=== PATIENT | female | born 1990 | race Caucasian/White ===

== ENCOUNTER → 2018-05-16 07:55 | Outpatient (CLI) | payer BC, SELFPAY ==
[2018-05-17 11:46] LABS: Progesterone 0.3 ng/mL (.)
== END ==
PROVIDERS: Visit Provider Obstetrics & Gynecology
DX: E28.2 Polycystic ovarian syndrome (principal)
CPT/HCPCS: 36415; 84144

== ENCOUNTER → 2018-06-29 18:14 | Outpatient (CLI) | payer BC, SELFPAY | PROVIDERS: Visit Provider Physician Assistant | DX: J02.9 Acute pharyngitis, unspecified (principal) ==

== ENCOUNTER → 2019-05-11 13:45 | Outpatient (CLI) | payer BC, SELFPAY | PROVIDERS: Visit Provider Nurse Practitioner Family | DX: R10.9 Unspecified abdominal pain (principal) | CPT/HCPCS: 87086 ==

== ENCOUNTER → 2019-05-17 17:46 | Outpatient (CLI) | payer BC, SELFPAY ==
[2019-05-17 18:17] VITALS: BP 121/71; PULSE 73; RESP 18; TEMP 36.8; O2SAT 98
[2019-05-17 18:19] VITALS: BP 123/74; PULSE 77; RESP 18; TEMP 37.1; O2SAT 98
[2019-05-18 16:48] VITALS: BMI 30.6
[2019-05-18 16:56] LABS: Microscopic, Urine URINE MICROSCOPIC (MICROSCOPIC)
[2019-05-18 17:00] LABS: Bilirubin,Urine Negative (Negative); Blood, Urine Negative (Negative); Color,Urine YELLOW (Yellow); Glucose,Urine (UA) Negative (Negative); Ketones,Urine Negative (Negative); Leukocyte Esterase,Urine Negative (Negative); Nitrate,Urine Negative (Negative); Protein,Urine Negative (Negative); Specific Gravity, Urine >= 1.030 (1.005-1.030); Urobilinogen,Urine 0.2 EU/dl (0.2)
[2019-05-18 17:08] LABS: Appearance,Urine Turbid (Clear)
[2019-05-18 17:10] LABS: Amorphous Sediment,Urine 4+ /lpf; Squamous Epithelial Cell,Urine Occasional #/hpf (0-5); WBC,Urine Occasional #/hpf (0-3)
== END ==
PROVIDERS: PCP Physician Assistant; Visit Provider Nurse Practitioner Family
DX: R30.0 Dysuria (principal)
CPT/HCPCS: 81001; 87086; G0463

== ENCOUNTER 2019-11-19 16:45 | Emergency (ER) | payer BC, SELFPAY ==
[2019-11-19 16:46] VITALS: BP 120/80; PULSE 100; RESP 20; TEMP 36.8; O2SAT 100; BMI 29.9
--- NOTE | 2019-11-19 17:01 | HMH.EDUTC ---
[facility] [place] Disposition Clinical Impression: Cellulitis Qualifiers: Site of cellulitis: extremity Site of cellulitis of extremity: lower extremity Laterality: left Qualified Code(s): L03.116 - Cellulitis of left lower limb Disposition: Home, Self-Care Condition on Discharge: Good Instructions: Cellulitis Additional Instructions: *Start antibiotic(s) immediately and be sure to take as ordered for the FULL length of time although you may be feeling better or start to see improvement in the next 24-48 hours *Monitor closely. Outlined redness so that you can monitor easier. Follow up immediately for new or worsening symptoms including but not limited to redness, swelling, streaking from site fever or chills. *Warm compress 15 minutes 3-4 times day *Never squeeze or pop these on your own. Seek immediate medical attention next time this occurs *Monitor Temp. Tylenol every 4 hours as needed and ibuprofen every 6 hours as needed (as long as your primary care doctor has told you that it is ok to take both. For fever, aches, pain. ER if no less that 101 despite Tylenol and ibuprofen Follow up with your family doctor/primary care physician in the next 48-72 hours if no improvement Prescriptions: cephALEXin [Keflex 500mg Cap] 500 mg PO Q6H 5 Days #20 cap Transmission Status: Sent to [facility] Referrals: Carina Benson PA [Primary Care Provider] - As needed Time of Disposition: 17:19 Medical Decision Making - Darius Inquiry Pt receiving controlled substance: No Darius was queried for this patient: No Vital Signs: 11/19/19 16:46 Temperature 98.3 F Temperature Source Oral Pulse Rate [Right] 100 H Respiratory Rate 20 Blood Pressure [Right Arm] 120/80 Blood Pressure Mean [Right Arm] 93 02 Sat by Pulse Oximetry 100 - Reevaluation(s) Time: 17:13 Reevaluation #1: Patient states that she is allergic to PCN and Amoxicillin but has taken Cephasporins in the past with no reaction or complications Medication discussed with pharmacy [facility] [place] HPI - General Stated complaint: L arm, possible infected Time Seen by Provider: 11/19/19 17:01 Mode of Arrival: Ambulatory Limitations: No Limitations Description of Symptoms (Recalled from Triage Doc. by RN): Sore to left upper arm since last night. HEENT Symptoms (Recalled from RN notes): No Resp Symptoms (Recalled from RN notes): No Skin Symptoms (Recalled from RN notes): Yes MS Symptoms (Recalled from RN notes): No Functional Status (Recalled from RN notes): na - History of Present Illness Provider Complaint: Patient states that she had a bump on her left forearm area last night and she thought it may be an infected hair so she picked at it and today she noticed it looked red around it like it was getting infected States that she hasnt had any drainage from it but noticed the redness was looking worse so she came in - Related Data Previous Rx's Medication Instructions Recorded Azithromycin [Z-Reginaldo 250mg Tab*] 250 mg PO UD DOSE PK #6 tab 08/15/19 Brompheniramine/Pseudoephed/Dm 5 ml PO Q6HP PRN #240 syrup 08/15/19 [Bromfed Dm Cough Syrup] Ondansetron [Zofran 4mg ODT] 4 mg PO Q8HP PRN #10 tab.rapdis 08/15/19 predniSONE [Prednisone 20mg 20 mg PO BID 4 Days #8 tab 08/15/19 Tab] cephALEXin [Keflex 500mg Cap] 500 mg PO Q6H 5 Days #20 cap 11/19/19 Allergies Allergy/AdvReac Type Severity Reaction Status Date / Time amoxicillin [AMOXICILLIN] Allergy Unknown I-RASH Verified 06/05/19 14:54 aspirin [ASPIRIN] Allergy Unknown NA-NAUSEA/V Verified 06/05/19 14:54 OMITING hydromorphone [From DILAUDID] Allergy Unknown S-SWELLS-OR Verified 06/05/19 14:54 AL/THROAT ibuprofen [IBUPROFEN] Allergy Unknown NA-NAUSEA/V Verified 06/05/19 14:54 OMITING Penicillins [PENICILLINS] Allergy Unknown I-RASH Verified 06/05/19 14:54 tetanus and diphtheria Allergy Unknown LOCAL Verified 06/05/19 14:54 toxoids REACTION Tetanus Vaccines and Toxoid Allergy Unknown
[2019-11-19 17:24] VITALS: BP 120/87; PULSE 85; RESP 20; TEMP 36.8; O2SAT 98
== END 2019-11-19 17:27 | disposition home or self-care (01) ==
PROVIDERS: Emergency Provider Nurse Practitioner; PCP Physician Assistant
DX: L03.116 Cellulitis of left lower limb (principal); Z88.0 Allergy status to penicillin; Z88.7 Allergy status to serum and vaccine; E03.9 Hypothyroidism, unspecified; K21.9 Gastro-esophageal reflux disease without esophagitis; Z90.49 Acquired absence of other specified parts of digestive tract
CPT/HCPCS: 99201

== ENCOUNTER → 2019-12-11 14:42 | Outpatient (CLI) | payer BC, SELFPAY ==
[2019-12-11 15:31] LABS: Basophils % 0.2 % (0.1-2.0); Eosinophils # 0.1 K/mm3 (0.0-0.4); Eosinophils % 2.5 % (0.1-12.0); Hematocrit 43.6 % (37.0-47.0); Hemoglobin 14.8 g/dL (12.2-16.2); Lymphocytes # 1.6 K/mm3 (0.7-4.5); Mean Corpuscular Hemoglobin 30.1 pg (27.0-31.2); Mean Corpuscular Volume 88.7 fl (81-99); Mean Platelet Volume 10.6 fl (7.4-10.4); Monocytes # 0.3 K/mm3 (0.1-1.0); Monocytes % 5.1 % (1.7-9.3); Neutrophils # 3.3 K/mm3 (1.8-7.8); Neutrophils % 62.2 % (37.0-80.0); Platelet Count 207 K/mm3 (142-424); Red Blood Count 4.92 M/mm3 (4.20-5.40); Red Cell Distribution Width 13.2 % (11.5-17.5); White Blood Count 5.4 K/mm3 (4.8-10.8)
[2019-12-11 15:49] LABS: Chloride 107 mmol/L (98-107); Sodium 139 mmol/L (136-145)
[2019-12-11 15:50] LABS: Potassium 4.6 mmoL/L (3.5-5.1)
[2019-12-11 15:52] LABS: Alanine Aminotransferase 15 U/L (12-78); Albumin Level 4.6 g/dl (3.5-5.0); Albumin/Globulin Ratio 1.4 (1.1-1.8); Alkaline Phosphatase 99 U/L (38-126); Anion Gap 11.6 mEq/L (5-15); Aspartate Amino Transferase 21 U/L (14-36); Bilirubin,Total 0.6 mg/dl (0.2-1.3); Blood Urea Nitrogen 7 mg/dl (7-17); Carbon Dioxide 25 mmol/L (22.0-30.0); Cholesterol 189 mg/dl (140-200); Estimated Glomerular Filt Rate 98 ml/min (>60); GFR (African American) 118 ML/MIN (>60); Globulin 3.4 g/dL (1.3-3.2); Triglycerides 224 mg/dl (30-150); VLDL Cholesterol 45 mg/dL (0-40)
[2019-12-11 15:53] LABS: Chol/HDL Ratio 3.4 (1-3.5); Glucose 98 mg/dl (74-100); HDL Cholesterol 56 mg/dl (40-60)
[2019-12-11 16:05] LABS: Direct LDL Cholesterol 101.09 mg/dL (100-129)
[2019-12-11 16:10] LABS: T4 (Thyroxine) 9.7 ug/dl (5.53-11.0)
[2019-12-11 16:24] LABS: Thyroid Stimulating Hormone 2.23 uIU/mL (0.465-4.68)
[2019-12-11 20:11] LABS: Hemoglobin A1C 4.7 % (4.0-6.0)
[2019-12-13 09:40] LABS: Vitamin D 25 Hydroxy 15.9 ng/mL (30.0-100.0)
== END ==
PROVIDERS: Visit Provider Physician Assistant
DX: E11.9 Type 2 diabetes mellitus without complications (principal); E55.9 Vitamin D deficiency, unspecified
CPT/HCPCS: 80053; 80061; 82652; 83036; 84436; 84443; 85025

== ENCOUNTER 2020-04-10 16:46 | Emergency (ER) | payer BC, SELFPAY ==
[2020-04-10 17:06] VITALS: BP 132/91; PULSE 87; RESP 19; TEMP 36.8; O2SAT 99; BMI 30.9
--- NOTE | 2020-04-10 17:35 | HMH.EDUTC ---
[facility] [place] Clinical Impression: Otitis media Qualifiers: Otitis media type: unspecified Laterality: right Qualified Code(s): H66.91 - Otitis media, unspecified, right ear Disposition: Home, Self-Care Condition on Discharge: Good Instructions: Middle Ear Infection, Middle Ear Infections (Alternative Therapy), Cefdinir Additional Instructions: *Monitor Temp, Over the counter Motrin or Tylenol as directed/as needed Tylenol every 4 hours and Motrin every 6 hours (as long as your family doctor has told you that you can take it) for fever or pain. and straight to ER if unable to lower temp less than 101.0 after medication given Take medication as prescribed *Warm fluids like tea with honey may help to soothe the throat *Sleep elevated *Humidifier/Vaporizer *Flonase 2 sprays in each nostril daily but be aware that it may take 2-3 days before you notice improvement Follow up IMMEDIATELY for new or worsening symptoms or no Noticeable improvement over the next 48-72 hours. 911 for difficulty breathing or swallowing You was tested for today for COVID19 your test result should be back later this evening, you may call back later this evening to see if your test results are back and the result You was given a handout with instructions for Self Quarantine and Self isolation for while you wait on test results and what to do if they are positive Prescriptions: Fluticasone Propionate [Flonase 50mcg nasal spray 16gm] 1 - 2 spr NS DAILY #1 bottle Transmission Status: Pending to [facility] Cefdinir [Omnicef 300mg Capsule] 300 mg PO BID #20 cap Transmission Status: Pending to [facility] Referrals: Carina Benson PA [Primary Care Provider] - As needed Time of Disposition: 17:40 Medical Decision Making - Darius Inquiry Pt receiving controlled substance: No Darius was queried for this patient: No Vital Signs: 04/10/20 17:06 Temperature 98.3 F Temperature Source Oral Pulse Rate [Radial] 87 Respiratory Rate 19 Blood Pressure [Right Arm] 132/91 H Blood Pressure Mean [Right Arm] 104 Blood Pressure Source [Right Arm] Automatic Cuff Blood Pressure Position [Right Arm] Sitting 02 Sat by Pulse Oximetry 99 Oxygen Delivery Method Room Air Medical Decision Narrative: Patient states that she is allergic to PCN and amoxicillin but has taken Cephasporins recently and in the past without reaction or complications [facility] [place] - General Stated complaint: Right ear pain Time Seen by Provider: 04/10/20 17:35 Mode of Arrival: Ambulatory Source of Information: Patient Limitations: No Limitations Description of Symptoms (Recalled from Triage Doc. by RN): right ear pain x 1 week. HEENT Symptoms (Recalled from RN notes): Yes Resp Symptoms (Recalled from RN notes): No Skin Symptoms (Recalled from RN notes): No MS Symptoms (Recalled from RN notes): No Functional Status (Recalled from RN notes): wnl - History of Present Illness Provider Complaint: Patient states that she has been having pain in her right ear on and off for about 2 weeks with it get worse over the last week States that she feels like she is having pressure and pain that shoots down into ear so today it was worse and she came in to get it checked - Related Data Previous Rx's Medication Instructions Recorded cholecalciferol (vitamin D3) 25 1,000 unit PO DAILY #90 cap 12/13/19 mcg (1,000 unit) capsule ergocalciferol (vitamin D2) 1,250 50,000 unit PO QWEEK 90 Days #12 12/13/19 mcg (50,000 unit) capsule cap Cefdinir [Omnicef 300mg Capsule] 300 mg PO BID #20 cap 04/10/20 Fluticasone Propionate [Flonase 1 - 2 spr NS DAILY #1 bottle 04/10/20 50mcg nasal spray 16gm] Allergies Allergy/AdvReac Type Severity Reaction Status Date / Time amoxicillin [AMOXICILLIN] Allergy Unknown I-RASH Verified 12/11/19 09:15 aspirin [ASPIRIN] Allergy Unknown NA-NAUSEA/V Verified 12/11/19 09:15 OMITING hydromorphone [From DILAUDID] Allerg
[2020-04-10 17:45] VITALS: BP 132/91; PULSE 87; RESP 19; TEMP 36.8; O2SAT 99
== END 2020-04-10 17:46 | disposition home or self-care (01) ==
PROVIDERS: Emergency Provider Nurse Practitioner; PCP Physician Assistant
DX: H66.91 Otitis media, unspecified, right ear (principal); K21.9 Gastro-esophageal reflux disease without esophagitis; E03.9 Hypothyroidism, unspecified; F33.1 Major depressive disorder, recurrent, moderate; Z90.49 Acquired absence of other specified parts of digestive tract; Z88.0 Allergy status to penicillin; Z88.7 Allergy status to serum and vaccine; Z88.8 Allergy status to other drugs, medicaments and biological substances; Z79.899 Other long term (current) drug therapy
CPT/HCPCS: 99201

== ENCOUNTER 2020-04-27 13:03 | Emergency (ER) | payer BC, SELFPAY ==
[2020-04-27 14:21] VITALS: BP 122/84; PULSE 72; RESP 20; TEMP 36.7; O2SAT 97; BMI 29.9
--- NOTE | 2020-04-27 14:56 | HMH.EDUTC ---
[facility] [place] Impression: Exposure to COVID-19 virus Disposition: Home, Self-Care Condition on Discharge: Good Instructions: Preventing the Spread of Coronavirus Discharge Instructions Additional Instructions: Drink plenty of fluids. Take tylenol for pain or fever. Follow up with your regular doctor. GO TO THE ER FOR ANY WORSENING SYMPTOMS FOLLOW THE DIRECTIONS ON THE COVID-19 HAND OUT THAT WE GAVE YOU REGARDING SELF-ISOLATION UNTIL YOU KNOW YOUR COVID-19 RESULTS Referrals: Carina Benson PA [Primary Care Provider] - Time of Disposition: 14:58 Medical Decision Making - Medical Records Medical records reviewed: No: I reviewed the patient's medical records. - Darius Inquiry Pt receiving controlled substance: No Vital Signs: 04/27/20 14:21 04/27/20 15:03 Temperature 98.1 F 98.1 F Temperature Source Oral Pulse Rate 72 Pulse Rate [Right Brachial] 72 Respiratory Rate 20 20 Blood Pressure 122/84 Blood Pressure [Right Arm] 122/84 Blood Pressure Mean [Right Arm] 96 Blood Pressure Source [Right Arm] Automatic Cuff Blood Pressure Position [Right Arm] Sitting 02 Sat by Pulse Oximetry 97 Oxygen Delivery Method Room Air [facility] [place] - General Stated complaint: covid test Time Seen by Provider: 04/27/20 14:56 Mode of Arrival: Ambulatory Source of Information: Patient Limitations: No Limitations Description of Symptoms (Recalled from Triage Doc. by RN): PATIENT REQUESTING COVID TEST; DENIES SYMPTOMS HEENT Symptoms (Recalled from RN notes): No Resp Symptoms (Recalled from RN notes): No Skin Symptoms (Recalled from RN notes): No MS Symptoms (Recalled from RN notes): No Functional Status (Recalled from RN notes): WNL - History of Present Illness Provider Complaint: She denies symptoms, but she thinks that she may have been exposed to covid. She denies any documented exposure though. - Related Data Previous Rx's Medication Instructions Recorded cholecalciferol (vitamin D3) 25 1,000 unit PO DAILY #90 cap 12/13/19 mcg (1,000 unit) capsule ergocalciferol (vitamin D2) 1,250 50,000 unit PO QWEEK 90 Days #12 12/13/19 mcg (50,000 unit) capsule cap Cefdinir [Omnicef 300mg Capsule] 300 mg PO BID #20 cap 04/10/20 Fluticasone Propionate [Flonase 1 - 2 spr NS DAILY #1 bottle 04/10/20 50mcg nasal spray 16gm] Allergies Allergy/AdvReac Type Severity Reaction Status Date / Time amoxicillin [AMOXICILLIN] Allergy Unknown I-RASH Verified 12/11/19 09:15 aspirin [ASPIRIN] Allergy Unknown NA-NAUSEA/V Verified 12/11/19 09:15 OMITING hydromorphone [From DILAUDID] Allergy Unknown S-SWELLS-OR Verified 12/11/19 09:15 AL/THROAT ibuprofen [IBUPROFEN] Allergy Unknown NA-NAUSEA/V Verified 12/11/19 09:15 OMITING Penicillins [PENICILLINS] Allergy Unknown I-RASH Verified 12/11/19 09:15 tetanus and diphtheria Allergy Unknown LOCAL Verified 12/11/19 09:15 toxoids REACTION Tetanus Vaccines and Toxoid Allergy Unknown LOCAL Verified 12/11/19 09:15 REACTION - Worker's Comp Is this a Worker's Comp case?: No [facility] History - Hepatitis A Screen Drug use history?: No High risk sexual behaviors?: No History of sexually transmitted infection?: No Currently employed?: No Childcare worker?: No Do you have indoor plumbing?: Yes Do you have electricity?: Yes Attestation statement:: This patient has been screened for Hepatitis A risk factors. I have reviewed the patient's past medical history: Yes Medical History: Reports:: Asthma, Cancer, Depression, Diabetes Mellitus Type 1, Diabetes Mellitus Type 2, Gastroesophageal Reflux Disease(GERD), MRSA Other Medical History: Reports: Hypothyroidism Other Surgeries: Yes: Appendectomy, Cholecystectomy, EGD, Other Amputation: No Fractures: No Comment: wisdom teeth, PCOS 2011 - Social History Smoking Status: Never smoker Alcohol Intake: never Substance Use Type: denies use Occupational Status: other Housing: house
[2020-04-27 15:03] VITALS: BP 122/84; PULSE 72; RESP 20; TEMP 36.7; O2SAT 97
== END 2020-04-27 15:08 | disposition home or self-care (01) ==
PROVIDERS: Emergency Provider Nurse Practitioner Family; PCP Physician Assistant
DX: Z20.828 Contact with and (suspected) exposure to other viral communicable diseases (principal); F33.1 Major depressive disorder, recurrent, moderate; E11.9 Type 2 diabetes mellitus without complications; K21.9 Gastro-esophageal reflux disease without esophagitis; E03.9 Hypothyroidism, unspecified; Z79.899 Other long term (current) drug therapy; Z88.0 Allergy status to penicillin; Z88.5 Allergy status to narcotic agent; Z88.7 Allergy status to serum and vaccine
CPT/HCPCS: 99201; U0003

== ENCOUNTER → 2020-05-06 10:14 | Outpatient (CLI) | payer BC, SELFPAY | PROVIDERS: PCP Physician Assistant; Visit Provider Physician Assistant | DX: Z03.818 Encounter for observation for suspected exposure to other biological agents ruled out (principal) | CPT/HCPCS: U0003 ==

== ENCOUNTER 2020-09-09 16:52 | Emergency (ER) | payer BC, SELFPAY ==
--- NOTE | 2020-09-09 17:13 | HMH.EDUTC ---
[facility] [place] Disposition Clinical Impression: Strep throat, Exposure to COVID-19 virus Disposition: Home, Self-Care Condition on Discharge: Good Instructions: DI for Strep Throat, Preventing the Spread of Coronavirus Discharge Instructions Additional Instructions: Drink plenty of fluids. Take tylenol for pain or fever. Return if you begin to have difficulty breathing. Follow up with your regular doctor. GO TO THE ER FOR ANY WORSENING SYMPTOMS Get a new tooth brush. Prescriptions: Azithromycin [Z-Reginaldo 250mg Tab*] 250 mg PO UD DOSE PK #6 tab Transmission Status: Received by [facility] Referrals: Carina Benson PA [Primary Care Provider] - Forms: Work/School Release Time of Disposition: 17:21 Medical Decision Making - Medical Records Medical records reviewed: No: I reviewed the patient's medical records. - Darius Inquiry Pt receiving controlled substance: No Vital Signs: 09/09/20 17:17 09/09/20 17:27 Temperature 98.8 F 98 F Temperature Source Oral Pulse Rate 80 Pulse Rate [Right] 87 Respiratory Rate 19 14 Blood Pressure 119/74 Blood Pressure [Right Arm] 115/76 Blood Pressure Mean [Right Arm] 89 Blood Pressure Source [Right Arm] Automatic Cuff Blood Pressure Position [Right Arm] Sitting 02 Sat by Pulse Oximetry 98 Oxygen Delivery Method Room Air - Lab Data Lab results reviewed: Yes: I reviewed the patient's lab results. Lab Results 09/09/20 16:55: Strep Scn Rapid Clinic Positive A [facility] [place] HPI - General Stated complaint: possible ear infection strep test Time Seen by Provider: 09/09/20 17:13 - History of Present Illness Provider Complaint: She states that for the past 2 days she has had a sore throat, ear pain and low grade fever. - Related Data Previous Rx's Medication Instructions Recorded cholecalciferol (vitamin D3) 25 1,000 unit PO DAILY #90 cap 12/13/19 mcg (1,000 unit) capsule ergocalciferol (vitamin D2) 1,250 50,000 unit PO QWEEK 90 Days #12 12/13/19 mcg (50,000 unit) capsule cap Cefdinir [Omnicef 300mg Capsule] 300 mg PO BID #20 cap 04/10/20 Fluticasone Propionate [Flonase 1 - 2 spr NS DAILY #1 bottle 04/10/20 50mcg nasal spray 16gm] Azithromycin [Z-Reginaldo 250mg Tab*] 250 mg PO UD DOSE PK #6 tab 09/09/20 Allergies Allergy/AdvReac Type Severity Reaction Status Date / Time amoxicillin [AMOXICILLIN] Allergy Unknown I-RASH Verified 09/09/20 17:20 aspirin [ASPIRIN] Allergy Unknown NA-NAUSEA/V Verified 09/09/20 17:20 OMITING hydromorphone [From DILAUDID] Allergy Unknown S-SWELLS-OR Verified 09/09/20 17:20 AL/THROAT ibuprofen [IBUPROFEN] Allergy Unknown NA-NAUSEA/V Verified 09/09/20 17:20 OMITING Penicillins [PENICILLINS] Allergy Unknown I-RASH Verified 09/09/20 17:20 tetanus and diphtheria Allergy Unknown LOCAL Verified 09/09/20 17:20 toxoids REACTION Tetanus Vaccines and Toxoid Allergy Unknown LOCAL Verified 09/09/20 17:20 REACTION [facility] History - Hepatitis A Screen Attestation statement:: This patient has been screened for Hepatitis A risk factors. I have reviewed the patient's past medical history: Yes Medical History: Reports:: Asthma, Cancer, Depression, Diabetes Mellitus Type 1, Diabetes Mellitus Type 2, Gastroesophageal Reflux Disease(GERD), MRSA Other Medical History: Reports: Hypothyroidism Other Surgeries: Yes: Appendectomy, Cholecystectomy, EGD, Other Amputation: No Fractures: No Comment: wisdom teeth, PCOS 2011 - Social History Smoking Status: Never smoker Alcohol Intake: never Substance Use Type: denies use Occupational Status: other Housing: house - Psychiatric History Pschychiatric History:: Reports:: Depression Family Hx:: Diabetes, Heart Attack, Coronary Artery Disease ROS Obtained: Yes All systems reviewed & no additional complaints - Constitutional Constitutional: Reports chills, Reports fever(s), Reports poor appetite, Reports malaise - Eyes Eyes: Denies eye
[2020-09-09 17:17] VITALS: BP 115/76; PULSE 87; RESP 19; TEMP 37.1; O2SAT 98; BMI 29.9
[2020-09-09 17:23] LABS: UTC Strep Screen (Rapid) Positive (Negative)
[2020-09-09 17:27] VITALS: BP 119/74; PULSE 80; RESP 14; TEMP 36.6
== END 2020-09-09 17:26 | disposition home or self-care (01) ==
PROVIDERS: Emergency Provider Nurse Practitioner Family; PCP Physician Assistant
DX: Z20.822 Contact with and (suspected) exposure to COVID-19 (principal); J02.0 Streptococcal pharyngitis; K21.9 Gastro-esophageal reflux disease without esophagitis; E11.9 Type 2 diabetes mellitus without complications; E03.9 Hypothyroidism, unspecified; Z79.899 Other long term (current) drug therapy; Z88.0 Allergy status to penicillin; Z88.7 Allergy status to serum and vaccine
CPT/HCPCS: 87880; 99202; G0463; U0003

== ENCOUNTER → 2020-10-09 13:40 | Outpatient (CLI) | payer BC, SELFPAY ==
[2020-10-09 13:51] LABS: Basophils % 0.4 % (0.1-2.0); Eosinophils # 0.1 K/mm3 (0.0-0.4); Eosinophils % 2.3 % (0.1-12.0); Hematocrit 41.9 % (37.0-47.0); Hemoglobin 14.2 g/dL (12.2-16.2); Lymphocytes % 37.2 % (10-50); Mean Corpuscular HGB Conc 33.8 g/dL (31.8-35.4); Mean Corpuscular Hemoglobin 29.8 pg (27.0-31.2); Mean Corpuscular Volume 88.1 fl (81-99); Mean Platelet Volume 8.8 fl (7.4-10.4); Monocytes # 0.3 K/mm3 (0.1-1.0); Monocytes % 5.4 % (1.7-9.3); Neutrophils # 2.9 K/mm3 (1.8-7.8); Neutrophils % 54.7 % (37.0-80.0); Platelet Count 210 K/mm3 (142-424); Red Blood Count 4.75 M/mm3 (4.20-5.40); Red Cell Distribution Width 13.3 % (11.5-17.5); White Blood Count 5.2 K/mm3 (4.8-10.8)
[2020-10-09 13:52] LABS: Alanine Aminotransferase 24 U/L (12-78); Albumin Level 4.6 g/dl (3.5-5.0); Albumin/Globulin Ratio 1.4 (1.1-1.8); Alkaline Phosphatase 92 U/L (38-126); Anion Gap 13.6 mEq/L (5-15); Aspartate Amino Transferase 29 U/L (14-36); Bilirubin,Total 0.7 mg/dl (0.2-1.3); Blood Urea Nitrogen 10 mg/dl (7-17); Calcium 9.8 mg/dl (8.4-10.2); Carbon Dioxide 25 mmol/L (22.0-30.0); Chloride 107 mmol/L (98-107); Chol/HDL Ratio 3.9 (1-3.5); Cholesterol 247 mg/dl (140-200); Estimated Glomerular Filt Rate 83 ml/min (>60); GFR (African American) 101 ML/MIN (>60); Globulin 3.3 g/dL (1.3-3.2); Glucose 95 mg/dl (74-100); HDL Cholesterol 64 mg/dl (40-60); Potassium 4.6 mmoL/L (3.5-5.1); Sodium 141 mmol/L (136-145); Total Protein,Serum 7.9 g/dl (6.3-8.2); Triglycerides 176 mg/dl (30-150); VLDL Cholesterol 35 mg/dL (0-40)
[2020-10-09 14:03] LABS: Direct LDL Cholesterol 124.72 mg/dL (100-129)
[2020-10-09 14:09] LABS: 25-OH Vitamin D, Total 16.3 ng/mL (30-100); T4 (Thyroxine) 8.5 ug/dl (5.53-11.0)
[2020-10-09 14:22] LABS: Thyroid Stimulating Hormone 0.92 uIU/mL (0.465-4.68)
--- NOTE | 2020-10-09 14:25 | XR_ITS ---
PROCEDURE: XR FOOT RT 2V CLINICAL INDICATION: numbness in foot COMPARISON: CR FTL3 FOOT-LT-3 VIEWS from 05/24/2015 FINDINGS: No fracture or dislocation. No lytic or blastic change. There is normal mineralization. The joint spaces are well-preserved. No significant degenerative/arthritic changes. No erosive changes evident. Other findings:None. IMPRESSION: No acute findings. Dictated by: Enrico Kaplan MD 10/09/2020 14:38 Enrico Kaplan MD in [place] 10/09/2020 14:38
--- NOTE | 2020-10-09 14:25 | XR_ITS ---
PROCEDURE: XR FOOT LT 2V CLINICAL INDICATION: numbness in foot COMPARISON: CR FTL3 FOOT-LT-3 VIEWS from 05/24/2015 FINDINGS: No fracture or dislocation. No lytic or blastic change. There is normal mineralization. The joint spaces are well-preserved. No significant degenerative/arthritic changes. No erosive changes evident. Other findings:None. IMPRESSION: No acute findings. Dictated by: Enrico Kaplan MD 10/09/2020 14:38 Enrico Kaplan MD in [place] 10/09/2020 14:38
== END ==
PROVIDERS: PCP Emergency Medicine; Visit Provider Emergency Medicine
DX: M79.672 Pain in left foot (principal); M79.671 Pain in right foot; R20.0 Anesthesia of skin; R53.83 Other fatigue; E55.9 Vitamin D deficiency, unspecified
CPT/HCPCS: 73620; 80053; 80061; 82306; 84436; 84443; 85025

== ENCOUNTER 2020-10-21 07:49 | Emergency (ER) | payer BC, SELFPAY ==
[2020-10-21 07:50] VITALS: BP 106/75; PULSE 83; RESP 18; TEMP 36.6; O2SAT 100; BMI 29.9
--- NOTE | 2020-10-21 07:56 | HMH.EDGENADL ---
ED Disposition Clinical Impression: Rash Allergic reaction Qualifiers: Encounter type: initial encounter Qualified Code(s): T78.40XA - Allergy, unspecified, initial encounter Disposition: Home, Self-Care Condition on Discharge: Good Additional Instructions: Stop taking Lipitor. Follow-up with primary care doctor in several days for recheck. Take steroids as prescribed always with food. Take Benadryl every 4-6 hours over the next 48 to 72 hours. Take pepcid as prescribed. Return immediately if any worsening rash, new symptoms such as shortness of breath, palpitations, nausea/vomiting. Use EpiPen only for severe symptoms. If using EpiPen immediately report to the emergency department. You may repeat dose of EpiPen if needed. Prescriptions: EPINEPHrine [Epipen 2-Reginaldo] 0.3 mg IM NEEDED PRN #1 [email or web address] PRN Reason: anaphylaxis Transmission Status: Pending to [facility] Famotidine [Pepcid 20mg Tablet] 20 mg PO DAILY 4 Days #4 tab Transmission Status: Pending to [facility] predniSONE [Prednisone 20mg Tab] 40 mg PO DAILY #8 tab Transmission Status: Pending to [facility] Referrals: Carlos Joseph MD [Primary Care Provider] - - Critical Care Critical Care Time: No Attestation: On 10/21/20, the high probability of a clinically significant, sudden or life threatening deterioration of the following system(s) required my full and direct attention, intervention and personal management. The time I documented below is in addition to time spent performing reported procedures but includes the following listed in this critical care notation. Medical Decision Making - Medical Records Medical records reviewed: Yes: I reviewed the patient's medical records. - Darius Inquiry Pt receiving controlled substance: No Vital Signs: 10/21/20 07:50 10/21/20 09:00 10/21/20 09:30 Temperature 97.8 F Temperature Source Oral Pulse Rate 68 63 Pulse Rate [Left Radial] 83 Respiratory Rate 18 18 18 Blood Pressure 115/74 105/81 L Blood Pressure [Right Arm] 106/75 L Blood Pressure Mean 86 89 Blood Pressure Mean [Right Arm] 85 Blood Pressure Source [Right Arm] Automatic Cuff Blood Pressure Position [Right Arm] Sitting 02 Sat by Pulse Oximetry 100 99 99 Oxygen Delivery Method Room Air Orders (Tests/Meds): ED MEDICATIONS Discontinued Medications Generic Name Dose Route Start Last Admin Trade Name Jeison PRN Reason Stop Dose Admin Diphenhydramine HCl 25 mg 10/21/20 08:06 10/21/20 08:10 Diphenhydramine 25mg Capsule PO 10/21/20 08:07 25 mg ONCE ONE Administration Famotidine 40 mg 10/21/20 08:06 10/21/20 08:10 Famotidine 20mg Tablet PO 10/21/20 08:07 40 mg ONCE ONE Administration Prednisone 60 mg 10/21/20 08:05 10/21/20 08:10 Prednisone 20mg Tab PO 10/21/20 08:06 60 mg ONCE ONE Administration Medical Decision Narrative: Patient presents the emergency department with rash. Rash is begun after she started a new medication 2 days ago. Rash blanches throughout with no skin sloughing. No hypotension noted. Normal vital signs. She does have a maculopapular rash that could be allergic in nature. At this time, prednisone, Benadryl, and Pepcid given in the ER. She will be observed to ensure improvement in her rash without development of new symptoms. As there is only 1 organ system involved initially she does appear to be suffering from a generalized allergic reaction as opposed to anaphylaxis. No indication for IM epinephrine. After several hours of observation, patient has had no spread of rash with improved symptoms. She continues to be hemodynamically stable with normal vital signs. At this time, I do believe patient is safe to be discharged on oral steroid burst with antihistamines. EpiPen prescription provided with appropriate guidance on storage and use. She does need to follow-up with her PCP within sever
[2020-10-21 09:00] VITALS: BP 115/74; PULSE 68; RESP 18; O2SAT 99
[2020-10-21 09:30] VITALS: BP 105/81; PULSE 63; RESP 18; O2SAT 99
[2020-10-21 11:20] VITALS: BP 105/81; PULSE 63; RESP 18; TEMP 36.6; O2SAT 99
== END 2020-10-21 11:20 | disposition home or self-care (01) ==
PROVIDERS: Emergency Provider Emergency Medicine; PCP Emergency Medicine
DX: L27.0 Generalized skin eruption due to drugs and medicaments taken internally (principal); T46.6X5A Adverse effect of antihyperlipidemic and antiarteriosclerotic drugs, initial encounter; Y92.019 Unspecified place in single-family (private) house as the place of occurrence of the external cause; E78.5 Hyperlipidemia, unspecified; E55.9 Vitamin D deficiency, unspecified; E11.9 Type 2 diabetes mellitus without complications; K21.9 Gastro-esophageal reflux disease without esophagitis; E03.9 Hypothyroidism, unspecified; Z88.0 Allergy status to penicillin; Z88.6 Allergy status to analgesic agent; Z88.7 Allergy status to serum and vaccine; Z79.899 Other long term (current) drug therapy
CPT/HCPCS: 99282

== ENCOUNTER 2020-10-25 17:01 | Emergency (ER) | payer BC, SELFPAY ==
[2020-10-25 17:18] VITALS: RESP 14; TEMP 37.1; O2SAT 97; BMI 29.9
--- NOTE | 2020-10-25 17:21 | HMH.EDUTC ---
[facility] Disposition Clinical Impression: Rash and nonspecific skin eruption Disposition: Home, Self-Care Condition on Discharge: Good Instructions: DI for Rash Prescriptions: Triamcinolone Acetonide [Kenalog 0.1% cream 30gm tube] 30 gm TP BID 10 Days #30 tube Transmission Status: Pending to [facility] hydrOXYzine pamoate [Vistaril 25mg capsule] 25 mg PO Q6H PRN 10 Days #40 cap PRN Reason: Itching Transmission Status: Pending to [facility] Referrals: Carlos Joseph MD [Primary Care Provider] - Time of Disposition: 17:30 Medical Decision Making - Darius Inquiry Pt receiving controlled substance: No [facility] HPI - General Stated complaint: rash on neck and arms Time Seen by Provider: 10/25/20 17:21 - History of Present Illness Provider Complaint: Patient started breaking out in a rash last week. It started 2 days after starting Lipitor. She was seen in the ER and given Prednisone and Pepcid. Rash got worse and she was seen by PCP who gave her Claritin, increased Prednisone and Clindamycin. Still has rash on face and arms. PCP told her to come back next week for skin biopsy but she states that she won't be able to get off work so she came here instead. Onset (ago): day(s) (5) Location: face, left, right, upper extremity Relieving factors: none Exacerbating factors: none Associated symptoms: denies other symptoms Treatments prior to arrival: other (Prednisone, claritin, Pepcid, clindamycin) - Related Data Previous Rx's Medication Instructions Recorded Fluticasone Propionate [Flonase 1 - 2 spr NS DAILY #1 bottle 04/10/20 50mcg nasal spray 16gm] cholecalciferol (vitamin D3) 25 1,000 unit PO DAILY #90 cap 10/15/20 mcg (1,000 unit) capsule ergocalciferol (vitamin D2) 1,250 50,000 unit PO QWEEK 90 Days #12 10/15/20 mcg (50,000 unit) capsule cap EPINEPHrine [Epipen 2-Reginaldo] 0.3 mg IM NEEDED PRN #1 10/21/20 auto.injct Famotidine [Pepcid 20mg Tablet] 20 mg PO DAILY 4 Days #4 tab 10/21/20 predniSONE [Prednisone 20mg 40 mg PO DAILY #8 tab 10/21/20 Tab] clindamycin HCl 150 mg capsule 150 mg PO TID 5 Days #15 cap 10/23/20 loratadine 10 mg tablet 10 mg PO DAILY #10 tab 10/23/20 prednisone 20 mg tablet 20 mg PO BID 2 Days #4 tab 10/23/20 prednisone 20 mg tablet 20 mg PO DAILY 2 Days #2 tab 10/23/20 prednisone 20 mg tablet 20 mg PO TID 2 Days #6 tab 10/23/20 Triamcinolone Acetonide [Kenalog 30 gm TP BID 10 Days #30 tube 10/25/20 0.1% cream 30gm tube] hydrOXYzine pamoate [Vistaril 25mg 25 mg PO Q6H PRN 10 Days #40 cap 10/25/20 capsule] Allergies Allergy/AdvReac Type Severity Reaction Status Date / Time amoxicillin [AMOXICILLIN] Allergy Unknown I-RASH Verified 10/23/20 14:59 aspirin [ASPIRIN] Allergy Unknown NA-NAUSEA/V Verified 10/23/20 14:59 OMITING hydromorphone [From DILAUDID] Allergy Unknown S-SWELLS-OR Verified 10/23/20 14:59 AL/THROAT ibuprofen [IBUPROFEN] Allergy Unknown NA-NAUSEA/V Verified 10/23/20 14:59 OMITING Penicillins [PENICILLINS] Allergy Unknown I-RASH Verified 10/23/20 14:59 tetanus and diphtheria Allergy Unknown LOCAL Verified 10/23/20 14:59 toxoids REACTION Tetanus Vaccines and Toxoid Allergy Unknown LOCAL Verified 10/23/20 14:59 REACTION [facility] History - Hepatitis A Screen Attestation statement:: This patient has been screened for Hepatitis A risk factors. I have reviewed the patient's past medical history: Yes Medical History: Reports:: Asthma, Cancer, Depression, Diabetes Mellitus Type 1, Diabetes Mellitus Type 2, Gastroesophageal Reflux Disease(GERD), MRSA Other Medical History: Reports: Hypothyroidism Other Surgeries: Yes: Appendectomy, Cholecystectomy, EGD, Other Amputation: No Fractures: No Comment: wisdom teeth, PCOS 2012 - Social History Smoking Status: Never smoker Alcohol Intake: never Substance Use Type: denies use Occupational Status: employed Housing: house Household Members: family - Psychia
[2020-10-25 17:54] VITALS: BP 132/80; PULSE 65; RESP 16; TEMP 37.1; O2SAT 98
== END 2020-10-25 17:55 | disposition home or self-care (01) ==
PROVIDERS: Emergency Provider Physician Assistant; PCP Emergency Medicine
DX: R21 Rash and other nonspecific skin eruption (principal); K21.9 Gastro-esophageal reflux disease without esophagitis; E03.9 Hypothyroidism, unspecified; Z79.899 Other long term (current) drug therapy; Z88.0 Allergy status to penicillin; Z88.6 Allergy status to analgesic agent; Z88.7 Allergy status to serum and vaccine
CPT/HCPCS: 96372; 99202; G0463; J1040

== ENCOUNTER 2020-11-02 10:36 | Emergency (ER) | payer BC, SELFPAY ==
[2020-11-02 10:40] VITALS: BP 132/79; PULSE 87; RESP 19; TEMP 37.1; O2SAT 100; BMI 30.7
--- NOTE | 2020-11-02 11:06 | HMH.EDUTC ---
[facility] [place] Disposition Clinical Impression: Strep sore throat Disposition: Home, Self-Care Condition on Discharge: Good Instructions: Strep Throat, DI for Strep Throat, Cefdinir Additional Instructions: *Monitor Temp, Over the counter Motrin or Tylenol as directed/as needed Tylenol every 4 hours and Motrin every 6 hours (as long as your family doctor has told you that you can take it) for fever or pain. and straight to ER if unable to lower temp less than 101.0 after medication given *Warm salt water gargles may help to soothe the throat *Throat Lozenges *Warm fluids like tea with honey may help to soothe the throat *Sleep elevated *Humidifier/Vaporizer *If you did not take Penicillin shot or was unable to, start taking antibiotic immediately and make sure that you take it for the FULL length of time although you should start to feel better in 24-48 hours *change toothbrush and toothpaste 24-48 hours after starting to take antibiotics so you do not reinfect yourself Monitor Temp. Tylenol and/or Ibuprofen as needed. ER if fever is no less than 101 despite alternating Tylenol and Ibuprofen * Encourage fluids, water, Gatorade, powerade, pedialyte if /toddler/or child *Cold fluids, popsicles and ice cream may feel good on his throat Follow up IMMEDIATELY for new or worsening symptoms or no Noticeable improvement over the next 48-72 hours. 911 for difficulty breathing or swallowing Prescriptions: Cefdinir [Omnicef 300mg Capsule] 300 mg PO BID #20 cap Transmission Status: Pending to [facility] Referrals: Carlos Joseph MD [Primary Care Provider] - As needed Time of Disposition: 11:12 Medical Decision Making - Darius Inquiry Pt receiving controlled substance: No Darius was queried for this patient: No Vital Signs: 11/02/20 10:40 Temperature 98.8 F Temperature Source Oral Pulse Rate [Right Brachial] 87 Respiratory Rate 19 Blood Pressure [Right Arm] 132/79 Blood Pressure Mean [Right Arm] 96 Blood Pressure Source [Right Arm] Automatic Cuff Blood Pressure Position [Right Arm] Sitting 02 Sat by Pulse Oximetry 100 Oxygen Delivery Method Room Air - Lab Data Lab results reviewed: Yes: I reviewed the patient's lab results. Lab Results 11/02/20 10:53: Strep Scn Rapid Clinic Positive A Medical Decision Narrative: Patient states that she has taken Cefdinir in the past without reactions or complications [facility] [place] HPI - General Stated complaint: sore throat, ear pain Time Seen by Provider: 11/02/20 11:06 Mode of Arrival: Ambulatory Source of Information: Patient Limitations: No Limitations Description of Symptoms (Recalled from Triage Doc. by RN): PATIENT C/O SORE THROAT, EAR PAIN, CHILLS, HEADACHE, COUGH, LUNG AND BACK PAIN, AND RASH ON ARMS/HANDS/FACE SINCE LAST NIGHT HEENT Symptoms (Recalled from RN notes): Yes Resp Symptoms (Recalled from RN notes): Yes Skin Symptoms (Recalled from RN notes): No MS Symptoms (Recalled from RN notes): No Functional Status (Recalled from RN notes): WNL - History of Present Illness Provider Complaint: Patient states that she has been having sore throat and pain in her ears body aches and is currently being treated for reaction/rash States that she has had strep throat several times in the past and had similar symptoms State that symptoms started last night and today she wasnt feeling better so she came in to get checked - Related Data Previous Rx's Medication Instructions Recorded Fluticasone Propionate [Flonase 1 - 2 spr NS DAILY #1 bottle 04/10/20 50mcg nasal spray 16gm] cholecalciferol (vitamin D3) 25 1,000 unit PO DAILY #90 cap 10/15/20 mcg (1,000 unit) capsule ergocalciferol (vitamin D2) 1,250 50,000 unit PO QWEEK 90 Days #12 10/15/20 mcg (50,000 unit) capsule cap EPINEPHrine [Epipen 2-Reginaldo] 0.3 mg IM NEEDED PRN #1 10/21/20 auto.injct Famotidine [Pepcid 20mg Tablet] 20 mg PO DAILY 4 Days #4 tab 10/21/20 Triamcinolone Acetonide [Kenalog
[2020-11-02 11:11] LABS: UTC Strep Screen (Rapid) Positive (Negative)
[2020-11-02 11:14] VITALS: BP 132/79; PULSE 87; RESP 19; TEMP 37.1; O2SAT 100
== END 2020-11-02 11:18 | disposition home or self-care (01) ==
PROVIDERS: Emergency Provider Nurse Practitioner; PCP Emergency Medicine
DX: J02.0 Streptococcal pharyngitis (principal); K21.9 Gastro-esophageal reflux disease without esophagitis; E03.9 Hypothyroidism, unspecified; Z79.899 Other long term (current) drug therapy; Z88.0 Allergy status to penicillin; Z88.7 Allergy status to serum and vaccine; Z88.8 Allergy status to other drugs, medicaments and biological substances
CPT/HCPCS: 87880; 99202; G0463

== ENCOUNTER 2020-11-03 20:05 | Emergency (ER) | payer BC, SELFPAY ==
[2020-11-03 20:19] VITALS: BP 115/89; PULSE 78; RESP 20; TEMP 36.9; O2SAT 100; BMI 29.9
[2020-11-03 20:31] VITALS: BP 000/00; PULSE 0; RESP 0; TEMP -17.7; TEMP 0; O2SAT 0
== END 2020-11-03 20:34 | disposition left against medical advice (07) ==
LOC: ER 20:10
PROVIDERS: Emergency Provider Emergency Medicine; PCP Emergency Medicine
DX: Z53.21 Procedure and treatment not carried out due to patient leaving prior to being seen by health care provider (principal)
CPT/HCPCS: 99211

== ENCOUNTER → 2021-01-02 09:14 | Outpatient (CLI) | payer BC, SELFPAY ==
[2021-01-02 09:55] LABS: Basophils % 0.2 % (0.1-2.0); Chloride 108 mmol/L (98-107); Eosinophils # 0.2 K/mm3 (0.0-0.4); Eosinophils % 2.3 % (0.1-12.0); Hematocrit 39.2 % (37.0-47.0); Hemoglobin 13.5 g/dL (12.2-16.2); Lymphocytes # 1.9 K/mm3 (0.7-4.5); Lymphocytes % 23.4 % (10-50); Mean Corpuscular HGB Conc 34.4 g/dL (31.8-35.4); Mean Corpuscular Hemoglobin 30.4 pg (27.0-31.2); Mean Corpuscular Volume 88.5 fl (81-99); Monocytes # 0.4 K/mm3 (0.1-1.0); Monocytes % 5.2 % (1.7-9.3); Neutrophils # 5.5 K/mm3 (1.8-7.8); Neutrophils % 68.9 % (37.0-80.0); Platelet Count 195 K/mm3 (142-424); Red Blood Count 4.43 M/mm3 (4.20-5.40); Red Cell Distribution Width 13.1 % (11.5-17.5)
[2021-01-02 09:56] LABS: Potassium 4.8 mmoL/L (3.5-5.1); Sodium 140 mmol/L (136-145)
[2021-01-02 09:58] LABS: Alanine Aminotransferase 20 U/L (12-78); Albumin Level 4.4 g/dl (3.5-5.0); Albumin/Globulin Ratio 1.3 (1.1-1.8); Alkaline Phosphatase 86 U/L (38-126); Anion Gap 10.8 mEq/L (5-15); Aspartate Amino Transferase 28 U/L (14-36); Bilirubin,Total 0.6 mg/dl (0.2-1.3); Blood Urea Nitrogen 16 mg/dl (7-17); Carbon Dioxide 26 mmol/L (22.0-30.0); Estimated Glomerular Filt Rate 97 ml/min (>60); GFR (African American) 117 ML/MIN (>60); Globulin 3.3 g/dL (1.3-3.2); Total Protein,Serum 7.7 g/dl (6.3-8.2)
[2021-01-02 09:59] LABS: Calcium 9.2 mg/dl (8.4-10.2); Glucose 90 mg/dl (74-100)
[2021-01-02 10:29] LABS: Thyroid Stimulating Hormone 1.11 uIU/mL (0.465-4.68)
[2021-01-02 10:33] LABS: Erythrocyte Sedimentation Rate 33 mm/hr (0-20)
[2021-01-02 11:11] LABS: Uric Acid 4.9 mg/dl (2.5-6.2)
[2021-01-02 11:16] LABS: C-Reactive Protein 1.6 mg/L (0-4)
[2021-01-02 12:19] LABS: Vitamin B12 310 pg/mL (239-931)
[2021-01-03 10:53] LABS: RA Latex Turbid. <10.0 IU/mL (0.0-13.9)
[2021-01-06 09:20] LABS: Antinuclear Antibodies, IFA Negative (.)
[2021-01-21 01:07] LABS: 1,25 Dihydroxy Vitamin D 54 pg/mL (.); 1,25-Dihydroxy, Vitamin D-2 22 pg/mL (.); 1,25-Dihydroxy, Vitamin D-3 32 pg/mL (.)
== END ==
PROVIDERS: Visit Provider Podiatrist
DX: M79.672 Pain in left foot (principal); M79.671 Pain in right foot; E55.9 Vitamin D deficiency, unspecified
CPT/HCPCS: 36415; 80053; 82607; 82652; 82746; 84443; 84550; 85025; 85651; 86038; 86140; 86431

== ENCOUNTER 2021-01-28 18:02 | Emergency (ER) | payer BC, SELFPAY ==
[2021-01-28 18:03] VITALS: BP 128/74; PULSE 92; RESP 20; TEMP 37.2; O2SAT 97; BMI 29.9
[2021-01-28 20:06] LABS: POC Glucose,Bedside 101 (70-110)
--- NOTE | 2021-01-28 20:08 | HMH.EDUTC ---
[facility] [place] Disposition Clinical Impression: Viral syndrome Pharyngitis Qualifiers: Pharyngitis/tonsillitis etiology: unspecified etiology Qualified Code(s): J02.9 - Acute pharyngitis, unspecified Disposition: Home, Self-Care Condition on Discharge: Good Instructions: DI for Pharyngitis/Tonsillopharyngitis -- Adult, Preventing the Spread of Coronavirus Discharge Instructions Additional Instructions: Drink plenty of fluids. Take tylenol for pain or fever. Return if you begin to have difficulty breathing. Follow up with your regular doctor. GO TO THE ER FOR ANY WORSENING SYMPTOMS Referrals: Carols Joseph MD [Primary Care Provider] - Forms: Work/School Release Medical Decision Making - Medical Records Medical records reviewed: No: I reviewed the patient's medical records. - Darius Inquiry Pt receiving controlled substance: No Vital Signs: 01/28/21 18:03 01/28/21 20:45 Temperature 98.9 F 98.9 F Temperature Source Oral Pulse Rate 92 H Pulse Rate [Left Radial] 92 H Respiratory Rate 20 20 Blood Pressure 128/74 Blood Pressure [Right Arm] 128/74 Blood Pressure Mean [Right Arm] 92 Blood Pressure Source [Right Arm] Automatic Cuff Blood Pressure Position [Right Arm] Sitting 02 Sat by Pulse Oximetry 97 Oxygen Delivery Method Room Air Room Air - Lab Data Lab Results 01/28/21 19:59: POC Glucose 101 01/28/21 20:00: Chlamy pneumoniae PCR Not detected, Adenovirus (PCR) Not detected, B. pertussis DNA (PCR) Not detected, Coronavirus OC43 (PCR) Not detected, Coronavirus HKU1 (PCR) Not detected, Coronavirus 229E (PCR) Not detected, SARS-CoV-2 (PCR) Not detected, Coronavirus NL63 (PCR) Not detected, Human Metapneumovir PCR Not detected, Influenza A (H1) PCR Not detected, Influ A (H1N1/09) PCR Not detected, Influenza A (H3) PCR Not detected, Influenza Type A (PCR) Not detected, Influenza Type B (PCR) Not detected, M. pneumoniae (PCR) Not detected, Parainfluenza 1 (PCR) Not detected, Parainfluenza 2 (PCR) Not detected, Parainfluenza 3 (PCR) Not detected, Parainfluenza 4 (PCR) Not detected, RSV (PCR) Not detected, Entero/Rhino (PCR) Not detected [facility] [place] HPI - General Stated complaint: covid test ,strip test,flu test Time Seen by Provider: 01/28/21 20:09 - History of Present Illness Provider Complaint: She reports that since around 1200 today she has been having chilling, body aches, fever, and nausea. She has also had a sore throat. She has a history of getting strep throat easily. She was checked at her work for covid and she states that the test was negative. - Related Data Previous Rx's Medication Instructions Recorded Fluticasone Propionate [Flonase 1 - 2 spr NS DAILY #1 bottle 04/10/20 50mcg nasal spray 16gm] cholecalciferol (vitamin D3) 25 1,000 unit PO DAILY #90 cap 10/15/20 mcg (1,000 unit) capsule ergocalciferol (vitamin D2) 1,250 50,000 unit PO QWEEK 90 Days #12 10/15/20 mcg (50,000 unit) capsule cap EPINEPHrine [Epipen 2-Reginaldo] 0.3 mg IM NEEDED PRN #1 10/21/20 auto.injct Famotidine [Pepcid 20mg Tablet] 20 mg PO DAILY 4 Days #4 tab 10/21/20 loratadine 10 mg tablet 10 mg PO DAILY #90 tab 10/28/20 meloxicam 7.5 mg tablet 7.5 mg PO DAILY 30 Days #30 tab 11/21/20 Allergies Allergy/AdvReac Type Severity Reaction Status Date / Time amoxicillin [AMOXICILLIN] Allergy Unknown I-RASH Verified 01/02/21 08:12 aspirin [ASPIRIN] Allergy Unknown NA-NAUSEA/V Verified 01/02/21 08:12 OMITING hydromorphone [From DILAUDID] Allergy Unknown S-SWELLS-OR Verified 01/02/21 08:12 AL/THROAT ibuprofen [IBUPROFEN] Allergy Unknown NA-NAUSEA/V Verified 01/02/21 08:12 OMITING Penicillins [PENICILLINS] Allergy Unknown I-RASH Verified 01/02/21 08:12 tetanus and diphtheria Allergy Unknown LOCAL Verified 01/02/21 08:12 toxoids REACTION Tetanus Vaccines and Toxoid Allergy Unknown LOCAL Verified 01/02/21 08:12 REACTION [facility] History - Hepatitis A Screen Attestation sta
[2021-01-28 20:40] LABS: Adenovirus,PCR Not Detected (NotDetected); Bordetella Pertussis Not Detected (NotDetected); Chlamydophila Pneumoniae, PCR Not Detected (NotDetected); Coronavirus 19, PCR Not Detected (NotDetected); Coronavirus 229E Not Detected (NotDetected); Coronavirus NL63 Not Detected (NotDetected); Coronavirus OC43 Not Detected (NotDetected); Coronovirus HKU1,PCR Not Detected (NotDetected); Human Metapneumovirus Not Detected (NotDetected); Influenza A, PCR Not Detected (NotDetected); Influenza AH1, 2009 Not Detected (NotDetected); Influenza AH1, PCR Not Detected (NotDetected); Influenza AH3,PCR Not Detected (NotDetected); Influenza B, PCR Not Detected (NotDetected); Mycoplasma Pneumoniae, PCR Not Detected (NotDetected); Parainfluenza 1, PCR Not Detected (NotDetected); Parainfluenza 2, PCR Not Detected (NotDetected); Parainfluenza 3, PCR Not Detected (NotDetected); Parainfluenza 4, PCR Not Detected (NotDetected); Respiratory Syncytial Virus Not Detected (NotDetected); Rhinovirus/Enterovirus Not Detected (NotDetected)
[2021-01-28 20:45] VITALS: BP 128/74; PULSE 92; RESP 20; TEMP 37.2; O2SAT 97
[2021-01-29 09:39] LABS: UTC Strep Screen (Rapid) Negative (Negative)
== END 2021-01-28 20:46 | disposition home or self-care (01) ==
PROVIDERS: Emergency Provider Nurse Practitioner Family; PCP Emergency Medicine
DX: B34.9 Viral infection, unspecified (principal); J02.9 Acute pharyngitis, unspecified; K21.9 Gastro-esophageal reflux disease without esophagitis; J45.909 Unspecified asthma, uncomplicated; F33.1 Major depressive disorder, recurrent, moderate; E03.9 Hypothyroidism, unspecified
CPT/HCPCS: 82962; 87581; 87633; 87798; 87880; 99202; G0463

== ENCOUNTER 2021-02-25 12:38 | Emergency (ER) | payer BC, SELFPAY ==
[2021-02-25 13:51] VITALS: BP 117/87; PULSE 87; RESP 18; TEMP 36.4; O2SAT 98; BMI 30.7
--- NOTE | 2021-02-25 13:55 | HMH.EDUTC ---
[facility] [place] Disposition Clinical Impression: Exposure to COVID-19 virus Disposition: Home, Self-Care Condition on Discharge: Good Instructions: DI for COVID-19 (Suspected or Confirmed ), Preventing the Spread of Coronavirus Discharge Instructions Additional Instructions: Drink plenty of fluids. Take tylenol for pain or fever. Return if you begin to have difficulty breathing. Follow up with your regular doctor. GO TO THE ER FOR ANY WORSENING SYMPTOMS Quarantine until you know the results of your covid-19 test. If it is positive, the health department should call you and give you further instructions about your length of Quarantine and other things. Notify your school or workplace of your results and follow their instructions regarding return to work/school. Referrals: Carlos Joseph MD [Primary Care Provider] - Forms: Work/School Release Time of Disposition: 13:56 Medical Decision Making - Medical Records Medical records reviewed: No: I reviewed the patient's medical records. - Darius Inquiry Pt receiving controlled substance: No Vital Signs: 02/25/21 13:51 02/25/21 14:46 Temperature 97.5 F L 98.2 F Temperature Source Temporal Artery Scan Pulse Rate 80 Pulse Rate [Left] 87 Respiratory Rate 18 18 Blood Pressure 119/82 Blood Pressure [Right Arm] 117/87 Blood Pressure Mean [Right Arm] 97 02 Sat by Pulse Oximetry 98 [facility] [place] HPI - General Stated complaint: covid exposure Time Seen by Provider: 02/25/21 14:00 - History of Present Illness Provider Complaint: She was exposed to covid 4 days ago. She denies any symptoms so far. - Related Data Previous Rx's Medication Instructions Recorded Fluticasone Propionate [Flonase 1 - 2 spr NS DAILY #1 bottle 04/10/20 50mcg nasal spray 16gm] cholecalciferol (vitamin D3) 25 1,000 unit PO DAILY #90 cap 10/15/20 mcg (1,000 unit) capsule ergocalciferol (vitamin D2) 1,250 50,000 unit PO QWEEK 90 Days #12 10/15/20 mcg (50,000 unit) capsule cap EPINEPHrine [Epipen 2-Reginaldo] 0.3 mg IM NEEDED PRN #1 10/21/20 auto.injct Famotidine [Pepcid 20mg Tablet] 20 mg PO DAILY 4 Days #4 tab 10/21/20 loratadine 10 mg tablet 10 mg PO DAILY #90 tab 10/28/20 meloxicam 7.5 mg tablet 7.5 mg PO DAILY 30 Days #30 tab 11/21/20 Allergies Allergy/AdvReac Type Severity Reaction Status Date / Time amoxicillin [AMOXICILLIN] Allergy Unknown I-RASH Verified 01/02/21 08:12 aspirin [ASPIRIN] Allergy Unknown NA-NAUSEA/V Verified 01/02/21 08:12 OMITING hydromorphone [From DILAUDID] Allergy Unknown S-SWELLS-OR Verified 01/02/21 08:12 AL/THROAT ibuprofen [IBUPROFEN] Allergy Unknown NA-NAUSEA/V Verified 01/02/21 08:12 OMITING Penicillins [PENICILLINS] Allergy Unknown I-RASH Verified 01/02/21 08:12 tetanus and diphtheria Allergy Unknown LOCAL Verified 01/02/21 08:12 toxoids REACTION Tetanus Vaccines and Toxoid Allergy Unknown LOCAL Verified 01/02/21 08:12 REACTION [facility] History - Hepatitis A Screen Attestation statement:: This patient has been screened for Hepatitis A risk factors. I have reviewed the patient's past medical history: Yes Medical History: Reports:: Asthma, Cancer, Depression, Gastroesophageal Reflux Disease(GERD), MRSA Denies:: Diabetes Mellitus Type 1, Diabetes Mellitus Type 2 Other Medical History: Reports: Hypothyroidism, Other Other Surgeries: Yes: Appendectomy, Cholecystectomy, EGD, Other Amputation: No Fractures: No Comment: wisdom teeth, PCOS 2011 - Social History Smoking Status: Never smoker Alcohol Intake: never Substance Use Type: denies use Occupational Status: employed Housing: house Household Members: family - Psychiatric History Pschychiatric History:: Reports:: Depression Family Hx:: Diabetes, Heart Attack, Coronary Artery Disease, Cancer ROS Obtained: Yes All systems reviewed & no additional complaints - Constitutional Constitutional: Reports system reviewed and no additional complaints, except
[2021-02-25 14:46] VITALS: BP 119/82; PULSE 80; RESP 18; TEMP 36.8
== END 2021-02-25 14:45 | disposition home or self-care (01) ==
PROVIDERS: Emergency Provider Nurse Practitioner Family; PCP Emergency Medicine
DX: Z20.822 Contact with and (suspected) exposure to COVID-19 (principal); K21.9 Gastro-esophageal reflux disease without esophagitis; J45.909 Unspecified asthma, uncomplicated; F33.1 Major depressive disorder, recurrent, moderate; E03.9 Hypothyroidism, unspecified; Z88.0 Allergy status to penicillin; Z88.5 Allergy status to narcotic agent; Z88.7 Allergy status to serum and vaccine
CPT/HCPCS: 99202; G0463; U0003

== ENCOUNTER → 2021-02-28 08:44 | Outpatient (CLI) | payer BC, SELFPAY | PROVIDERS: Visit Provider Nurse Practitioner Family | DX: Z20.822 Contact with and (suspected) exposure to COVID-19 (principal) | CPT/HCPCS: U0003 ==

== ENCOUNTER → 2021-03-19 08:02 | Outpatient (CLI) | payer BC, SELFPAY ==
--- NOTE | 2021-03-19 08:02 | MM_ITS ---
PROCEDURE: MM DIG SCREENING MAMM BI W/CAD Digital Breast Tomosynthesis Included CLINICAL INDICATION: Baseline Mammogram /Family hx of Breast Cancer COMPARISON: No exams were available for comparison TECHNIQUE: Standard CC and MLO images and 3D Tomosynthesis was obtained. R2 CAD reviewed. FINDINGS: The breasts are almost entirely fatty. No suspicious appearing mass, malignant-appearing microcalcification, architectural distortion, or skin thickening. IMPRESSION: BI-RAD Category: 1 Negative FOLLOW-UP: 1 YR 1 Year Follow-up (A letter has been sent to the patient regarding results of the study.) Dictated by: Enrico Kaplan MD 03/19/2021 08:41 Enrico Kaplan MD in [place] 03/19/2021 08:41
== END ==
PROVIDERS: PCP Emergency Medicine; Visit Provider Nurse Practitioner Obstetrics & Gynecology
DX: Z12.31 Encounter for screening mammogram for malignant neoplasm of breast (principal); Z80.3 Family history of malignant neoplasm of breast
CPT/HCPCS: 77063; 77067

== ENCOUNTER → 2021-03-19 17:30 | Outpatient (CLI) | payer BC, SELFPAY | PROVIDERS: PCP Emergency Medicine; Visit Provider Nurse Practitioner | DX: Z20.822 Contact with and (suspected) exposure to COVID-19 (principal); U07.1 COVID-19 | CPT/HCPCS: C9803; U0003; U0005 ==

== ENCOUNTER 2021-03-22 11:01 | Emergency (ER) | payer BC, SELFPAY ==
[2021-03-22 11:38] VITALS: BP 118/80; PULSE 76; RESP 19; TEMP 36.9; O2SAT 98; BMI 29.9
--- NOTE | 2021-03-22 11:58 | HMH.EDUTC ---
[facility] [place] Disposition Clinical Impression: COVID-19 Disposition: Home, Self-Care Condition on Discharge: Good Instructions: DI for COVID-19 (Suspected or Confirmed ), Preventing the Spread of Coronavirus Discharge Instructions Additional Instructions: Drink plenty of fluids. Take tylenol for pain or fever. Return if you begin to have difficulty breathing. Follow up with your regular doctor. GO TO THE ER FOR ANY WORSENING SYMPTOMS Quarantine until you know the results of your covid-19 test. If it is positive, the health department should call you and give you further instructions about your length of Quarantine and other things. Notify your school or workplace of your results and follow their instructions regarding return to work/school. Referrals: Carlos Joseph MD [Primary Care Provider] - Time of Disposition: 12:00 Medical Decision Making - Medical Records Medical records reviewed: No: I reviewed the patient's medical records. - Darius Inquiry Pt receiving controlled substance: No Vital Signs: 03/22/21 11:38 03/22/21 12:01 Temperature 98.4 F 98.4 F Temperature Source Oral Oral Pulse Rate 76 Pulse Rate [Apical] 76 Respiratory Rate 19 19 Blood Pressure 119/80 Blood Pressure [Right Arm] 118/80 Blood Pressure Mean [Right Arm] 92 Blood Pressure Source Automatic Cuff Blood Pressure Source [Right Arm] Automatic Cuff Blood Pressure Position Sitting Blood Pressure Position [Right Arm] Sitting 02 Sat by Pulse Oximetry 98 Oxygen Delivery Method Room Air Room Air [facility] [place] HPI - General Stated complaint: covid test Time Seen by Provider: 03/22/21 11:58 Mode of Arrival: Ambulatory Source of Information: Patient Limitations: No Limitations Description of Symptoms (Recalled from Triage Doc. by RN): covid test HEENT Symptoms (Recalled from RN notes): No Resp Symptoms (Recalled from RN notes): No Skin Symptoms (Recalled from RN notes): No MS Symptoms (Recalled from RN notes): No Functional Status (Recalled from RN notes): na - History of Present Illness Provider Complaint: She tested positive for covid-19 3 days ago after an exposure at her work. She denies any symptoms. She has the first shot of the 2 shot regimen for covid vaccination. She is here today because she does not trust the previous result and she needs to be working if at all possible. - Related Data Previous Rx's Medication Instructions Recorded Fluticasone Propionate [Flonase 1 - 2 spr NS DAILY #1 bottle 04/10/20 50mcg nasal spray 16gm] cholecalciferol (vitamin D3) 25 1,000 unit PO DAILY #90 cap 10/15/20 mcg (1,000 unit) capsule ergocalciferol (vitamin D2) 1,250 50,000 unit PO QWEEK 90 Days #12 10/15/20 mcg (50,000 unit) capsule cap EPINEPHrine [Epipen 2-Reginaldo] 0.3 mg IM NEEDED PRN #1 10/21/20 auto.injct Famotidine [Pepcid 20mg Tablet] 20 mg PO DAILY 4 Days #4 tab 10/21/20 loratadine 10 mg tablet 10 mg PO DAILY #90 tab 10/28/20 meloxicam 7.5 mg tablet 7.5 mg PO DAILY 30 Days #30 tab 11/21/20 Allergies Allergy/AdvReac Type Severity Reaction Status Date / Time amoxicillin [AMOXICILLIN] Allergy Unknown I-RASH Verified 01/02/21 08:12 aspirin [ASPIRIN] Allergy Unknown NA-NAUSEA/V Verified 01/02/21 08:12 OMITING hydromorphone [From DILAUDID] Allergy Unknown S-SWELLS-OR Verified 01/02/21 08:12 AL/THROAT ibuprofen [IBUPROFEN] Allergy Unknown NA-NAUSEA/V Verified 01/02/21 08:12 OMITING Penicillins [PENICILLINS] Allergy Unknown I-RASH Verified 01/02/21 08:12 tetanus and diphtheria Allergy Unknown LOCAL Verified 01/02/21 08:12 toxoids REACTION Tetanus Vaccines and Toxoid Allergy Unknown LOCAL Verified 01/02/21 08:12 REACTION - Worker's Comp Is this a Worker's Comp case?: No [facility] History - Hepatitis A Screen Drug use history?: No High risk sexual behaviors?: No History of sexually transmitted infection?: No Currently employed?: No Childcare worker?: No Do you have indoor plumbi
[2021-03-22 12:01] VITALS: BP 119/80; PULSE 76; RESP 19; TEMP 36.9; O2SAT 98
== END 2021-03-22 12:02 | disposition home or self-care (01) ==
PROVIDERS: Emergency Provider Nurse Practitioner Family; PCP Emergency Medicine
DX: Z20.822 Contact with and (suspected) exposure to COVID-19 (principal)
CPT/HCPCS: 99202; C9803; G0463; U0003; U0005

== ENCOUNTER → 2021-03-28 14:46 | Outpatient (CLI) | payer BC, SELFPAY | PROVIDERS: PCP Emergency Medicine; Visit Provider Nurse Practitioner | DX: Z20.822 Contact with and (suspected) exposure to COVID-19 (principal) | CPT/HCPCS: C9803; U0003; U0005 ==

== ENCOUNTER 2021-04-07 10:31 | Emergency (ER) | payer BC, SELFPAY ==
[2021-04-07 10:31] VITALS: BP 112/20; PULSE 74; RESP 18; TEMP 36.6; O2SAT 97; BMI 30.7
--- NOTE | 2021-04-07 10:48 | CT_ITS ---
PROCEDURE INFORMATION: Exam: CT Abdomen And Pelvis With Contrast Exam date and time: 04/07/2021 10:48 AM Age: 31 years old Clinical indication: Abdominal pain; Acute; Prior surgery; Surgery date: 6+ months; Surgery type: Gb TECHNIQUE: Imaging protocol: Computed tomography of the abdomen and pelvis with contrast. Radiation optimization: All CT scans at this facility use at least one of these dose optimization techniques: automated exposure control; mA and/or kV adjustment per patient size (includes targeted exams where dose is matched to clinical indication); or iterative reconstruction. Contrast material: ISOVUE; Contrast volume: 75 ml; Contrast route: IV; COMPARISON: CT ABDOMEN PELVIS WO CON 05/06/2019 4:47 PM FINDINGS: Lungs: Calcified granulomas left lung base Liver: Area of low attenuation within the liver adjacent to the fissure of the ligamentum teres is believed to represent focal fat. Gallbladder and bile ducts: Surgical clips are present in the region of the gallbladder fossa. Pancreas: Normal. No ductal dilation. Spleen: Normal. No splenomegaly. Adrenal glands: Normal. No mass. Kidneys and ureters: Normal. No hydronephrosis. Stomach and bowel: Large amount of stool throughout the large bowel. Appendix: Appendix normal. Intraperitoneal space: No free fluid within the pelvis or within the dependent portions of the peritoneum. Vasculature: Flow within the superior mesenteric artery, celiac trunk and inferior mesenteric arteries. Lymph nodes: Unremarkable. No enlarged lymph nodes. Urinary bladder: Unremarkable as visualized. Reproductive: 2 cm cyst left ovary. Bones/joints: Unremarkable. No acute fracture. Soft tissues: Unremarkable. Other findings: No acute intra-abdominal process. No inflammatory process. No obstruction. IMPRESSION: 1. Appendix normal. 2. 2 cm cyst left ovary. 3. No acute intra-abdominal process. No inflammatory process. No obstruction. 4. No free fluid within the pelvis or within the dependent portions of the peritoneum. 5. Large amount of stool throughout the large bowel.
[2021-04-07 10:59] LABS: Microscopic, Urine URINE MICROSCOPIC (MICROSCOPIC)
[2021-04-07 11:01] LABS: Appearance,Urine CLEAR (Clear); Bilirubin,Urine Negative (Negative); Blood, Urine Negative (Negative); Color,Urine YELLOW (Yellow); Glucose,Urine (UA) Negative (Negative); Ketones,Urine Negative (Negative); Leukocyte Esterase,Urine 1+ (Negative); Nitrate,Urine Negative (Negative); Protein,Urine Negative (Negative); Urobilinogen,Urine 0.2 EU/dl (0.2)
[2021-04-07 11:02] LABS: Basophils # 0.1 K/mm3 (0-0.2); Basophils % 0.8 % (0.1-2.0); Eosinophils # 0.2 K/mm3 (0.0-0.4); Eosinophils % 2.4 % (0.1-12.0); Hematocrit 41.6 % (37.0-47.0); Lymphocytes # 1.8 K/mm3 (0.7-4.5); Lymphocytes % 28.9 % (10-50); Mean Corpuscular HGB Conc 33.5 g/dL (31.8-35.4); Mean Corpuscular Hemoglobin 30.6 pg (27.0-31.2); Mean Corpuscular Volume 91.2 fl (81-99); Mean Platelet Volume 8.4 fl (7.4-10.4); Monocytes # 0.3 K/mm3 (0.1-1.0); Monocytes % 5.4 % (1.7-9.3); Neutrophils # 3.9 K/mm3 (1.8-7.8); Neutrophils % 62.4 % (37.0-80.0); Platelet Count 223 K/mm3 (142-424); Red Blood Count 4.56 M/mm3 (4.20-5.40); Red Cell Distribution Width 13.1 % (11.5-17.5); White Blood Count 6.2 K/mm3 (4.8-10.8)
[2021-04-07 11:06] LABS: Chloride 108 mmol/L (98-107); Potassium 4.2 mmoL/L (3.5-5.1); Sodium 139 mmol/L (136-145)
[2021-04-07 11:08] LABS: Alanine Aminotransferase 19 U/L (12-78); Alkaline Phosphatase 87 U/L (38-126); Anion Gap 10.2 mEq/L (5-15); Aspartate Amino Transferase 25 U/L (14-36); Bilirubin,Total 0.4 mg/dl (0.2-1.3); Blood Urea Nitrogen 9 mg/dl (7-17); Carbon Dioxide 25 mmol/L (22.0-30.0); Creatinine Clearance Estimated 177 mL/min (50-200); Estimated Glomerular Filt Rate 115 ml/min (>60); GFR (African American) 139 ML/MIN (>60); Lipase 98 U/L (23-300)
[2021-04-07 11:09] LABS: Albumin Level 4.1 g/dl (3.5-5.0); Albumin/Globulin Ratio 1.2 (1.1-1.8); Calcium 9.1 mg/dl (8.4-10.2); Globulin 3.3 g/dL (1.3-3.2); Glucose 94 mg/dl (74-100); Total Protein,Serum 7.4 g/dl (6.3-8.2)
[2021-04-07 11:17] LABS: Bacteria,Urine Trace /lpf; RBC,Urine Occasional #/hpf (0-3); Squamous Epithelial Cell,Urine Occasional #/hpf (0-5)
[2021-04-07 11:26] LABS: HCG Qualitative, Serum Negative (Negative)
[2021-04-07 11:30] VITALS: BP 112/67; PULSE 70; O2SAT 97
[2021-04-07 12:00] VITALS: BP 110/67; PULSE 57; O2SAT 97
--- NOTE | 2021-04-07 12:07 | HMH.EDGENADL ---
ED Disposition Clinical Impression: RLQ abdominal pain, Left ovarian cyst Disposition: Home, Self-Care Condition on Discharge: Good Referrals: Carlos Joseph MD [Primary Care Provider] - 3 days Time of Disposition: 13:44 - Critical Care Critical Care Time: No Attestation: On 04/07/21, the high probability of a clinically significant, sudden or life threatening deterioration of the following system(s) required my full and direct attention, intervention and personal management. The time I documented below is in addition to time spent performing reported procedures but includes the following listed in this critical care notation. Medical Decision Making - Medical Records Medical records reviewed: Yes: I reviewed the patient's medical records. - Darius Inquiry Pt receiving controlled substance: No Vital Signs: 04/07/21 10:31 04/07/21 11:30 04/07/21 12:00 Temperature 97.8 F Temperature Source Oral Pulse Rate 70 57 L Pulse Rate [Left Radial] 74 Respiratory Rate 18 Blood Pressure 112/67 110/67 Blood Pressure [Right Arm] 112/20 L Blood Pressure Mean 88 81 Blood Pressure Mean [Right Arm] 50 Blood Pressure Source [Right Arm] Automatic Cuff Blood Pressure Position [Right Arm] Sitting 02 Sat by Pulse Oximetry 97 97 97 Oxygen Delivery Method Room Air - Lab Data Lab results reviewed: Yes: I reviewed the patient's lab results. Lab Results 04/07/21 10:45: WBC 6.2, RBC 4.56, Hgb 14.0, Hct 41.6, MCV 91.2, MCH 30.6, MCHC 33.5, RDW 13.1, Plt Count 223, MPV 8.4, Neut % (Auto) 62.4, Lymph % (Auto) 28.9, [place] % (Auto) 5.4, Eos % (Auto) 2.4, Baso % (Auto) 0.8, Neut # (Auto) 3.9, Lymph # (Auto) 1.8, [place] # (Auto) 0.3, Eos # (Auto) 0.2, Baso # (Auto) 0.1 04/07/21 10:45: Sodium 139, Potassium 4.2, Chloride 108 H, Carbon Dioxide 25, Anion Gap 10.2, BUN 9, Creatinine 0.60, Estimated Creat Clear 177, Estimated GFR 115, Est GFR ( Amer) 139, Glucose 94, Calcium 9.1, Total Bilirubin 0.4, AST 25, ALT 19, Alkaline Phosphatase 87, Total Protein 7.4, Albumin 4.1, Globulin 3.3 H, Albumin/Globulin Ratio 1.2, Lipase 98 04/07/21 10:45: Urine Color Yellow, Urine Appearance Clear, Urine pH 6.0, Ur Specific [place] 1.020, Urine Protein Negative, Urine Glucose (UA) Negative, Urine Ketones Negative, Urine Blood Negative, Urine Nitrate Negative, Urine Bilirubin Negative, Urine Urobilinogen 0.2, Ur Leukocyte Esterase 1+ A, Urine RBC Occasional, Urine WBC 5-10, Ur Squamous Epith Cells Occasional, Urine Bacteria Trace 04/07/21 10:45: Serum HCG, Qual Negative Result diagrams: 04/07/21 10:45 04/07/21 10:45 Orders (Tests/Meds): ORDERS Category Date Time Status Urine Culture Stat Micro 04/07/21 10:45 Received - CT Data CT Scan: Abdomen, Pelvis Time Received: 13:[address] Reviewed: Yes: I have reviewed the patient's CT results Preliminary Findings: Normal/NAD Medical Decision Narrative: 31yo F evaluated for right lower quadrant pain. Patient is in no acute distress on initial evaluation. Physical exam is unremarkable except for mild tenderness to her right lower abdomen/pelvis. Differential diagnosis includes but not limited to: Constipation, IBD, acute appendicitis, ovarian cyst or torsion. In further discussion with the patient, she is midway through her cycle. Her previous episode similar to this 4 to 5 months ago occurred at the same time of her cycle. Patient also then remembers she has PCOS. Strongly suspect ovarian cyst at this time. Given the patient's ongoing concern for appendicitis, sent for CT of the abdomen pelvis with IV contrast. Laboratory studies are unremarkable. CT scan shows no acute finding except curiously for a left ovarian cyst. Patient is discharged home in stable condition. General Adult HPI - General Chief complaint: Abdominal Pain Stated complaint: right sided pain Time Seen by Provider: 04/07/21 10:32 Mode of Arrival: Ambulatory Limitations: No Limitations Description of Sym
[2021-04-07 13:51] VITALS: BP 120/90; PULSE 67; RESP 20; TEMP 36.8; O2SAT 100
== END 2021-04-07 13:52 | disposition home or self-care (01) ==
PROVIDERS: Emergency Provider Family Medicine; PCP Emergency Medicine
DX: N83.201 Unspecified ovarian cyst, right side (principal); K21.9 Gastro-esophageal reflux disease without esophagitis; E03.9 Hypothyroidism, unspecified; F33.1 Major depressive disorder, recurrent, moderate
CPT/HCPCS: 74177; 80053; 81001; 83690; 84703; 85025; 87086; 99283

== ENCOUNTER 2021-07-05 10:58 | Emergency (ER) | payer BC, SELFPAY ==
[2021-07-05 11:59] VITALS: BP 127/80; PULSE 110; RESP 18; TEMP 37.3; O2SAT 98; BMI 31.6
--- NOTE | 2021-07-05 12:20 | HMH.EDUTC ---
[facility] [place] Disposition Clinical Impression: Viral syndrome, Exposure to COVID-19 virus Disposition: Home, Self-Care Condition on Discharge: Good Instructions: DI for COVID-19 (Suspected or Confirmed ), Preventing the Spread of Coronavirus Discharge Instructions Additional Instructions: Drink plenty of fluids. Take tylenol or ibuprofen for pain or fever. Take the medications as directed. Follow up with your regular doctor. GO TO THE ER FOR ANY WORSENING SYMPTOMS The cough medication (promethazine dm) will make you drowsy, so don't drive or operate heavy machinery after taking it. Prescriptions: Albuterol Sulfate [Albuterol Sulfate Hfa] 2 puffs IH Q6HP PRN 30 Days #1 each PRN Reason: Shortness Of Breath Transmission Status: Received by [id number] Promethazine/Dextromethorphan [Promethazine-Dm Syrup] 5 ml PO Q6HP PRN #240 ml PRN Reason: Cough Transmission Status: Received by [facility] Ondansetron [Zofran 4mg ODT] 4 mg PO Q8HP PRN #20 tab PRN Reason: Nausea Transmission Status: Received by [id number] Referrals: Carlos Joseph MD [Primary Care Provider] - Forms: Work/School Release Time of Disposition: 13:12 Medical Decision Making - Medical Records Medical records reviewed: No: I reviewed the patient's medical records. - Darius Inquiry Pt receiving controlled substance: No Vital Signs: 07/05/21 11:59 07/05/21 12:31 Temperature 99.2 F 99.2 F Temperature Source Oral Pulse Rate 110 H Pulse Rate [Left] 110 H Respiratory Rate 18 18 Blood Pressure 127/80 Blood Pressure [Right Arm] 127/80 Blood Pressure Mean [Right Arm] 95 02 Sat by Pulse Oximetry 98 - Lab Data Lab Results 07/05/21 12:28: Influenza Type A Ag Negative, Influenza Type B Ag Negative [facility] [place] HPI - General Stated complaint: sore cough,SOA,sore throat,covid exposure Time Seen by Provider: 07/05/21 12:20 Mode of Arrival: Ambulatory Source of Information: Patient Limitations: No Limitations Description of Symptoms (Recalled from Triage Doc. by RN): pt c/o weakness, myalgia, SOA, VILLA, cough, and chills. pts is positive for covid. HEENT Symptoms (Recalled from RN notes): Yes Resp Symptoms (Recalled from RN notes): Yes Skin Symptoms (Recalled from RN notes): No MS Symptoms (Recalled from RN notes): No Functional Status (Recalled from RN notes): wnl - History of Present Illness Provider Complaint: Her tested positive for covid yesterday. She started having muscle aches and feeling bad last night. - Related Data Home Medications Medication Instructions Recorded Confirmed Cholecalciferol (Vitamin D3) 1,000 unit PO DAILY 07/06/21 07/06/21 [Vitamin D3 1,000 Unit Cap] Ergocalciferol (Vitamin D2) 50,000 unit PO QWEEK 07/06/21 07/06/21 [Drisdol] Famotidine [Pepcid 20mg Tablet] 20 mg PO DAILY 07/06/21 07/06/21 Fluticasone Propionate [Flonase 1 - 2 spr NS DAILY 07/06/21 07/06/21 50mcg nasal spray 16gm] Loratadine [Allergy Relief] 10 mg PO DAILY 07/06/21 07/06/21 methylPREDNISolone [Medrol] 4 mg PO DIRECTED 07/06/21 07/06/21 Previous Rx's Medication Instructions Recorded EPINEPHrine [Epipen 2-Reginaldo] 0.3 mg IM NEEDED PRN #1 10/21/20 auto.injct meloxicam 7.5 mg tablet 7.5 mg PO DAILY 30 Days #30 tab 11/21/20 Albuterol Sulfate [Albuterol 2 puffs IH Q6HP PRN 30 Days #1 each 07/05/21 Sulfate Hfa] Ondansetron [Zofran 4mg ODT] 4 mg PO Q8HP PRN #20 tab 07/05/21 Promethazine/Dextromethorphan 5 ml PO Q6HP PRN #240 ml 07/05/21 [Promethazine-Dm Syrup] Cefdinir [Omnicef 300mg Capsule] 300 mg PO BID #20 cap 07/06/21 Ondansetron [Zofran 4mg ODT] 4 mg PO Q6H PRN #20 tab 07/06/21 Allergies Allergy/AdvReac Type Severity Reaction Status Date / Time amoxicillin [AMOXICILLIN] Allergy Unknown I-RASH Verified 01/02/21 08:12 aspirin [ASPIRIN] Allergy Unknown NA-NAUSEA/V Verified 01/02/21 08:12 OMITING hydromorphone [From DILAUDID] All
[2021-07-05 12:31] VITALS: BP 127/80; PULSE 110; RESP 18; TEMP 37.3
[2021-07-05 19:46] LABS: UTC Influenza A Antigen Negative (Negative)
[2021-07-05 19:47] LABS: UTC Influenza B Antigen Negative (Negative)
== END 2021-07-05 13:24 | disposition home or self-care (01) ==
PROVIDERS: Emergency Provider Nurse Practitioner Family; PCP Emergency Medicine
DX: U07.1 COVID-19 (principal); B34.9 Viral infection, unspecified; K21.9 Gastro-esophageal reflux disease without esophagitis; F41.8 Other specified anxiety disorders; E03.9 Hypothyroidism, unspecified
CPT/HCPCS: 87804; 99202; C9803; G0463; U0003; U0005

== ENCOUNTER 2021-07-06 18:45 | Emergency (ER) | payer BC, SELFPAY ==
[2021-07-06 19:23] VITALS: BP 131/81; PULSE 112; RESP 19; TEMP 37.1; O2SAT 96; BMI 32.4
[2021-07-06 19:30] VITALS: BP 112/68; PULSE 100; O2SAT 96
--- NOTE | 2021-07-06 19:30 | XR_ITS ---
PROCEDURE INFORMATION: Exam: XR Chest Exam date and time: 07/06/2021 7:30 PM Age: 31 years old Clinical indication: Cough and fever; Patient HX: Cough, congestion, fever, cold chills, possibly covid positive since Wednesday night. ; Additional info: Cough, covid TECHNIQUE: Imaging protocol: XR of the chest. Views: 2 views. Total images: 2 COMPARISON: CR CXR CHEST(2 VIEWS-NOT PORTABLE) 08/02/2014 6:56 PM FINDINGS: Lungs: Normal pulmonary expansion. Pulmonary vasculature grossly normal. No gross pulmonary infiltrates or edema pattern. Pleural spaces: No pleural effusion. No pneumothorax. Heart/Mediastinum: Heart size normal. No tracheal/mediastinal shift. Bones/joints: No acute osseous abnormalities are identified. IMPRESSION: No acute thoracic process.
[2021-07-06 19:51] LABS: Basophils # 0.1 K/mm3 (0-0.2); Basophils % 2.1 % (0.1-2.0); Eosinophils % 0.3 % (0.1-12.0); Hematocrit 41.8 % (37.0-47.0); Lymphocytes # 1.3 K/mm3 (0.7-4.5); Lymphocytes % 26.5 % (10-50); Mean Corpuscular HGB Conc 33.5 g/dL (31.8-35.4); Mean Corpuscular Volume 89.6 fl (81-99); Mean Platelet Volume 8.7 fl (7.4-10.4); Monocytes # 0.6 K/mm3 (0.1-1.0); Monocytes % 11.4 % (1.7-9.3); Neutrophils % 59.6 % (37.0-80.0); Platelet Count 193 K/mm3 (142-424); Red Blood Count 4.66 M/mm3 (4.20-5.40); Red Cell Distribution Width 13.3 % (11.5-17.5)
[2021-07-06 20:00] VITALS: BP 114/80; PULSE 103; O2SAT 96
[2021-07-06 20:02] LABS: Alanine Aminotransferase 28 U/L (12-78); Albumin Level 4.4 g/dl (3.5-5.0); Albumin/Globulin Ratio 1.4 (1.1-1.8); Alkaline Phosphatase 79 U/L (38-126); Anion Gap 11.6 mEq/L (5-15); Aspartate Amino Transferase 35 U/L (14-36); Bilirubin,Total 0.6 mg/dl (0.2-1.3); Blood Urea Nitrogen 8 mg/dl (7-17); Calcium 9.4 mg/dl (8.4-10.2); Carbon Dioxide 23 mmol/L (22.0-30.0); Chloride 103 mmol/L (98-107); Creatinine Clearance Estimated 160 mL/min (50-200); Estimated Glomerular Filt Rate 96 ml/min (>60); GFR (African American) 117 ML/MIN (>60); Globulin 3.2 g/dL (1.3-3.2); Glucose 97 mg/dl (74-100); Potassium 3.6 mmoL/L (3.5-5.1); Sodium 134 mmol/L (136-145); Total Protein,Serum 7.6 g/dl (6.3-8.2)
[2021-07-06 20:04] LABS: HCG Qualitative, Serum Negative (Negative); Monoscreen (Rapid) Negative (Negative)
[2021-07-06 20:08] LABS: C-Reactive Protein 15.5 mg/L (0-4)
--- NOTE | 2021-07-06 20:17 | HMH.EDGENADL ---
ED Disposition Clinical Impression: COVID-19, UTI (urinary tract infection) Disposition: Home, Self-Care Condition on Discharge: Good Instructions: DI for Diarrhea and Traveler's Diarrhea -- Adult, DI for Diarrhea and Traveler's Diarrhea -- Child, DI for Nausea -- Adult, DI for Nausea -- Child Prescriptions: Cefdinir [Omnicef 300mg Capsule] 300 mg PO BID #20 cap Transmission Status: Pending to [facility] Ondansetron [Zofran 4mg ODT] 4 mg PO Q6H PRN #20 tab PRN Reason: Nausea And Vomiting Transmission Status: Pending to [facility] Referrals: Provider,Referral, [Primary Care Provider] - - Critical Care Critical Care Time: No Attestation: On 07/06/21, the high probability of a clinically significant, sudden or life threatening deterioration of the following system(s) required my full and direct attention, intervention and personal management. The time I documented below is in addition to time spent performing reported procedures but includes the following listed in this critical care notation. Medical Decision Making - Darius Inquiry Pt receiving controlled substance: No Darius was queried for this patient: No Vital Signs: 07/06/21 19:23 07/06/21 19:30 07/06/21 20:00 Temperature 98.8 F Temperature Source Oral Pulse Rate 100 H 103 H Pulse Rate [Right Brachial] 112 H Respiratory Rate 19 Blood Pressure 112/68 114/80 Blood Pressure [Right Arm] 131/81 Blood Pressure Mean [Right Arm] 97 Blood Pressure Source [Right Arm] Automatic Cuff Blood Pressure Position [Right Arm] Sitting 02 Sat by Pulse Oximetry 96 96 96 Oxygen Delivery Method Room Air Room Air Room Air 07/06/21 20:30 Temperature Temperature Source Pulse Rate 88 Pulse Rate [Right Brachial] Respiratory Rate Blood Pressure 110/73 Blood Pressure [Right Arm] Blood Pressure Mean [Right Arm] Blood Pressure Source [Right Arm] Blood Pressure Position [Right Arm] 02 Sat by Pulse Oximetry 97 Oxygen Delivery Method Room Air - Lab Data Lab Results 07/06/21 19:33: WBC 5.0, RBC 4.66, Hgb 14.0, Hct 41.8, MCV 89.6, MCH 30.0, MCHC 33.5, RDW 13.3, Plt Count 193, MPV 8.7, Neut % (Auto) 59.6, Lymph % (Auto) 26.5, [place] % (Auto) 11.4 H, Eos % (Auto) 0.3, Baso % (Auto) 2.1 H, Neut # (Auto) 3.0, Lymph # (Auto) 1.3, [place] # (Auto) 0.6, Eos # (Auto) 0.0, Baso # (Auto) 0.1, ESR 31 H 07/06/21 19:33: Sodium 134 L, Potassium 3.6, Chloride 103, Carbon Dioxide 23, Anion Gap 11.6, BUN 8, Creatinine 0.70, Estimated Creat Clear 160, Estimated GFR 96, Est GFR ( Amer) 117, Glucose 97, Calcium 9.4, Total Bilirubin 0.6, AST 35, ALT 28, Alkaline Phosphatase 79, C-Reactive Protein 15.5 H, Total Protein 7.6, Albumin 4.4, Globulin 3.2, Albumin/Globulin Ratio 1.4 07/06/21 19:33: Monoscreen Negative 07/06/21 19:33: Serum HCG, Qual Negative 07/06/21 20:20: Urine Color Yellow, Urine Appearance Cloudy, Urine pH 6.0, Ur Specific [place] >= 1.030, Urine Protein Trace, Urine Glucose (UA) Negative, Urine Ketones 1+, Urine Blood Negative, Urine Nitrate Negative, Urine Bilirubin Negative, Urine Urobilinogen 0.2, Ur Leukocyte Esterase 1+ A, Urine WBC 20-50, Ur Squamous Epith Cells 5-10, Amorphous Sediment Trace, Urine Mucus 4+ Result diagrams: 07/06/21 19:33 07/06/21 19:33 Orders (Tests/Meds): ED MEDICATIONS Generic Name Dose Route Start Last Admin Trade Name Freq PRN Reason Stop Dose Admin Sodium Chloride 1,000 mls @ 999 mls/hr 07/06/21 19:45 07/06/21 20:15 Sod Chlor 0.9% 1000ml Bag IV 07/06/21 20:45 999 mls/hr .Q1H1M SHAWN Administration Discontinued Medications Generic Name Dose Route Start Last Admin Trade Name Freq PRN Reason Stop Dose Admin Acetaminophen 1,000 mg 07/06/21 20:15 07/06/21 20:32 Acetaminophen 500mg Tab PO 07/06/21 20:16 1,000 mg ONCE ONE Administration Ketorolac Tromethamine 30 mg 07/06/21 19:34 07/06/21 20:15 Ketorolac 30mg/Ml Vial IV 07/06/21 19:35 30 mg
[2021-07-06 20:19] LABS: Erythrocyte Sedimentation Rate 31 mm/hr (0-20)
[2021-07-06 20:30] VITALS: BP 110/73; PULSE 88; O2SAT 97
[2021-07-06 20:49] LABS: Microscopic, Urine URINE MICROSCOPIC (MICROSCOPIC)
[2021-07-06 20:55] LABS: Appearance,Urine CLOUDY (Clear); Blood, Urine Negative (Negative); Color,Urine YELLOW (Yellow); Glucose,Urine (UA) Negative (Negative); Ketones,Urine 1+ (Negative); Leukocyte Esterase,Urine 1+ (Negative); Nitrate,Urine Negative (Negative); Protein,Urine TRACE (Negative); Specific Gravity, Urine >= 1.030 (1.005-1.030); Urobilinogen,Urine 0.2 EU/dl (0.2)
[2021-07-06 20:58] LABS: Bilirubin,Urine Negative (Negative)
[2021-07-06 20:59] LABS: Amorphous Sediment,Urine Trace /lpf; Mucus,Urine 4+ /lpf; WBC,Urine 20-50 #/hpf (0-3)
[2021-07-06 21:42] VITALS: BP 102/62; PULSE 91; RESP 16; TEMP 36.8; O2SAT 99
== END 2021-07-06 21:50 | disposition home or self-care (01) ==
PROVIDERS: Emergency Medicine; Emergency Provider Student in an Organized Health Care Education/Training Program; PCP Emergency Medicine
DX: U07.1 COVID-19 (principal); N30.00 Acute cystitis without hematuria; E03.9 Hypothyroidism, unspecified; F41.8 Other specified anxiety disorders; K21.9 Gastro-esophageal reflux disease without esophagitis; Z88.0 Allergy status to penicillin; Z88.7 Allergy status to serum and vaccine; Z79.899 Other long term (current) drug therapy
CPT/HCPCS: 71046; 80053; 81001; 84703; 85025; 85651; 86140; 86318; 87086; 96365; 96375; 99283; J2405

== ENCOUNTER → 2021-07-11 11:27 | Outpatient (CLI) | payer BC, SELFPAY | PROVIDERS: PCP Emergency Medicine; Visit Provider Nurse Practitioner | DX: U07.1 COVID-19 (principal) | CPT/HCPCS: C9803; U0003; U0005 ==

== ENCOUNTER → 2021-07-14 15:26 | Outpatient (CLI) | payer BC, SELFPAY | PROVIDERS: Visit Provider Nurse Practitioner | DX: U07.1 COVID-19 (principal) | CPT/HCPCS: C9803; U0003; U0005 ==

== ENCOUNTER → 2021-07-18 10:43 | Outpatient (CLI) | payer BC, SELFPAY ==
[2021-07-18 11:34] LABS: Coronavirus 19 IgG Antibody Positive (Negative); Coronavirus 19 IgM Antibody Negative (Negative)
== END ==
PROVIDERS: PCP Emergency Medicine; Visit Provider Physician Assistant
DX: U07.1 COVID-19 (principal)
CPT/HCPCS: 36415; 86328

== ENCOUNTER 2021-09-05 13:33 | Emergency (ER) | payer BC, SELFPAY ==
[2021-09-05 13:40] VITALS: BP 114/84; PULSE 106; RESP 20; TEMP 36.7; O2SAT 98; BMI 34.7
[2021-09-05 13:57] LABS: UTC Strep Screen (Rapid) Negative (Negative)
--- NOTE | 2021-09-05 14:13 | HMH.EDUTC ---
[facility] [place] Clinical Impression: Allergic rhinitis Qualifiers: Allergic rhinitis trigger: unspecified Allergic rhinitis seasonality: unspecified Qualified Code(s): J30.9 - Allergic rhinitis, unspecified Disposition: Home, Self-Care Condition on Discharge: Good Instructions: Allergic Rhinitis, DI for Allergic Rhinitis Additional Instructions: *Monitor Temp, Over the counter Motrin or Tylenol as directed/as needed Tylenol every 4 hours and Motrin every 6 hours (as long as your family doctor has told you that you can take it) for fever or pain. and straight to ER if unable to lower temp less than 101.0 after medication given *Warm salt water gargles may help to soothe the throat *Throat Lozenges *Warm fluids like tea with honey may help to soothe the throat *Sleep elevated *Humidifier/Vaporizer *Flonase 2 sprays in each nostril daily but be aware that it may take 2-3 days before you notice improvement Your throat swab was sent for culture. Those results are typically sent to your primary care. Be sure to follow up in 2-3 days with your family doctor/primary care physician if no improvement so they can review those result and treat if necessary. If you don?t have a primary care doctor, I recommend you get one but in the mean time, you will have to return to a walk in clinic Follow up IMMEDIATELY for new or worsening symptoms or no Noticeable improvement over the next 48-72 hours. 911 for difficulty breathing or swallowing Prescriptions: Loratadine [Allergy Relief] 10 mg PO DAILY #30 tab Transmission Status: Pending to [facility] Fluticasone Propionate [Flonase 50mcg nasal spray 16gm] 1 spr NS DAILY #1 each Transmission Status: Pending to [facility] Referrals: Carlos Joseph MD [Primary Care Provider] - As needed Time of Disposition: 14:20 Medical Decision Making - Darius Inquiry Pt receiving controlled substance: No Darius was queried for this patient: No Vital Signs: 09/05/21 13:40 Temperature 98.1 F Temperature Source Oral Pulse Rate [Right Brachial] 106 H Respiratory Rate 20 Blood Pressure [Right Arm] 114/84 Blood Pressure Mean [Right Arm] 94 Blood Pressure Source [Right Arm] Automatic Cuff Blood Pressure Position [Right Arm] Sitting 02 Sat by Pulse Oximetry 98 Oxygen Delivery Method Room Air - Lab Data Lab results reviewed: Yes: I reviewed the patient's lab results. Lab Results 09/05/21 13:39: Strep Scn Rapid Clinic Negative Orders (Tests/Meds): ORDERS Category Date Time Status Strep Screen Confirmation Stat Micro 09/05/21 13:39 Received [facility] [place] HPI - General Stated complaint: sore throat, fever Time Seen by Provider: 09/05/21 14:13 Mode of Arrival: Ambulatory Source of Information: Patient Limitations: No Limitations Description of Symptoms (Recalled from Triage Doc. 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 and she was worried that she may have it so she came in to get checked out - Related Data Home Medications Medication Instructions Recorded Confirmed Cholecalciferol (Vitamin D3) 1,000 unit PO DAILY 07/06/21 07/06/21 [Vitamin D3 1,000 Unit Cap] Ergocalciferol (Vitamin D2) 50,000 unit PO QWEEK 07/06/21 07/06/21 [Drisdol] Famotidine [Pepcid 20mg Tablet] 20 mg PO DAILY 07/06/21 07/06/21 Fluticasone Propionate [Flonase 1 - 2 spr NS DAILY 07/06/21 07/06/21 50mcg nasal spray 16gm] Loratadine [Allergy Relief] 10 mg PO DAILY 07/06/21 07/06/21 methylPREDNISolone [Medrol] 4 mg PO DIRECTED 07/06/21 07/06/21 Previous Rx's
[2021-09-05 14:25] VITALS: BP 114/84; PULSE 106; RESP 20; TEMP 36.7; O2SAT 98
== END 2021-09-05 14:29 | disposition home or self-care (01) ==
PROVIDERS: Emergency Provider Nurse Practitioner; PCP Emergency Medicine
DX: J02.9 Acute pharyngitis, unspecified (principal); J30.9 Allergic rhinitis, unspecified; K21.9 Gastro-esophageal reflux disease without esophagitis; E03.9 Hypothyroidism, unspecified; J45.909 Unspecified asthma, uncomplicated; Z79.51 Long term (current) use of inhaled steroids; Z79.52 Long term (current) use of systemic steroids; Z79.899 Other long term (current) drug therapy; Z88.0 Allergy status to penicillin; Z88.1 Allergy status to other antibiotic agents; Z88.3 Allergy status to other anti-infective agents; Z88.6 Allergy status to analgesic agent; Z88.7 Allergy status to serum and vaccine; Z86.14 Personal history of Methicillin resistant Staphylococcus aureus infection; Z82.49 Family history of ischemic heart disease and other diseases of the circulatory system; Z83.3 Family history of diabetes mellitus; Z80.9 Family history of malignant neoplasm, unspecified
CPT/HCPCS: 87880; 99213; G0463

== ENCOUNTER 2021-09-26 16:36 | Emergency (ER) | payer BC, SELFPAY ==
[2021-09-26] VITALS (9 sets, daily range): BP systolic 112–133; BP diastolic 69–97; PULSE 65–110; RESP 15–19; TEMP 36.4–36.6; O2SAT 96–100; BMI 29.9
--- NOTE | 2021-09-26 16:57 | CT_ITS ---
PROCEDURE INFORMATION: Exam: CT Abdomen And Pelvis Without Contrast Exam date and time: 09/26/2021 6:04 PM Age: 31 years old Clinical indication: Abdominal pain; Localized; Left lower quadrant (llq); Prior surgery; Surgery type: Gallbladder; Additional info: Llq pain into flank, painful urination TECHNIQUE: Imaging protocol: Computed tomography of the abdomen and pelvis without contrast. Radiation optimization: All CT scans at this facility use at least one of these dose optimization techniques: automated exposure control; mA and/or kV adjustment per patient size (includes targeted exams where dose is matched to clinical indication); or iterative reconstruction. COMPARISON: CT ABDOMEN PELVIS W CON 04/07/2021 12:16 PM FINDINGS: Liver: Normal. No mass. Gallbladder and bile ducts: Previous cholecystectomy. Pancreas: Normal. No ductal dilation. Spleen: Normal. No splenomegaly. Adrenal glands: Normal. No mass. Kidneys and ureters: Normal. No hydronephrosis. Stomach and bowel: Unremarkable. No obstruction. No mucosal thickening. Appendix: No evidence of appendicitis. Intraperitoneal space: A small amount of free fluid is demonstrated within the pelvis. Vasculature: Unremarkable. No abdominal aortic aneurysm. Lymph nodes: Unremarkable. No enlarged lymph nodes. Urinary bladder: Unremarkable as visualized. Reproductive: The left ovary measures 3.8 cm in length by 2.6 cm in AP dimensions by 2 cm transversely. The right ovary measures approximately 2.8 cm in length by 2.8 cm in AP dimensions by 1.8 cm in transverse dimensions. Bones/joints: Unremarkable. No acute fracture. Soft tissues: Unremarkable. IMPRESSION: Incomplete visualization of the ovaries. Superimposed findings suggesting small amount of free peritoneal fluid. Findings may be secondary to ovulation. Consider follow-up with transvaginal ultrasound to further evaluate for the presence of ovarian cysts.
[2021-09-26 17:09] LABS: Microscopic, Urine URINE MICROSCOPIC (MICROSCOPIC)
--- NOTE | 2021-09-26 17:10 | PC.NURSE ---
Asked pt if she has ever taken ketorolac since allergy to ibuprofen is documented. Pt states that she has taken ketorolac and does not have a reaction to it.
[2021-09-26 17:19] LABS: Basophils # 0.1 K/mm3 (0-0.2); Basophils % 1.4 % (0.1-2.0); Eosinophils # 0.1 K/mm3 (0.0-0.4); Eosinophils % 1.1 % (0.1-12.0); Hematocrit 43.2 % (37.0-47.0); Hemoglobin 14.2 g/dL (12.2-16.2); Lymphocytes # 1.9 K/mm3 (0.7-4.5); Lymphocytes % 22.7 % (10-50); Mean Corpuscular HGB Conc 32.8 g/dL (31.8-35.4); Mean Corpuscular Hemoglobin 29.8 pg (27.0-31.2); Mean Corpuscular Volume 90.7 fl (81-99); Mean Platelet Volume 9.3 fl (7.4-10.4); Monocytes # 0.4 K/mm3 (0.1-1.0); Neutrophils # 5.9 K/mm3 (1.8-7.8); Neutrophils % 69.8 % (37.0-80.0); Platelet Count 246 K/mm3 (142-424); Red Blood Count 4.77 M/mm3 (4.20-5.40); Red Cell Distribution Width 13.9 % (11.5-17.5); White Blood Count 8.5 K/mm3 (4.8-10.8)
[2021-09-26 17:28] LABS: Alanine Aminotransferase 26 U/L (12-78); Albumin Level 4.6 g/dl (3.5-5.0); Albumin/Globulin Ratio 1.4 (1.1-1.8); Alkaline Phosphatase 80 U/L (38-126); Anion Gap 10.8 mEq/L (5-15); Aspartate Amino Transferase 27 U/L (14-36); Bilirubin,Total 0.7 mg/dl (0.2-1.3); Blood Urea Nitrogen 11 mg/dl (7-17); Calcium 9.3 mg/dl (8.4-10.2); Carbon Dioxide 28 mmol/L (22.0-30.0); Chloride 105 mmol/L (98-107); Creatinine Clearance Estimated 147 mL/min (50-200); Estimated Glomerular Filt Rate 96 ml/min (>60); GFR (African American) 117 ML/MIN (>60); Globulin 3.2 g/dL (1.3-3.2); Glucose 96 mg/dl (74-100); Potassium 3.8 mmoL/L (3.5-5.1); Sodium 140 mmol/L (136-145); Total Protein,Serum 7.8 g/dl (6.3-8.2)
[2021-09-26 17:31] LABS: Appearance,Urine CLOUDY (Clear); Bilirubin,Urine Negative (Negative); Blood, Urine Negative (Negative); Color,Urine YELLOW (Yellow); Glucose,Urine (UA) Negative (Negative); Ketones,Urine TRACE (Negative); Leukocyte Esterase,Urine TRACE (Negative); Nitrate,Urine Negative (Negative); PH,Urine 6.5 (5.0-8.5); Protein,Urine Negative (Negative); Specific Gravity, Urine 1.025 (1.005-1.030); Urobilinogen,Urine 0.2 EU/dl (0.2)
[2021-09-26 17:47] LABS: Bacteria,Urine 2+ /lpf
[2021-09-26 18:00] LABS: Urine Pregnancy, HCG Qual. Negative (Negative)
--- NOTE | 2021-09-26 18:35 | HMH.EDGENADL ---
ED Disposition Clinical Impression: Ruptured ovarian cyst Disposition: Home, Self-Care Condition on Discharge: Fair Instructions: DI for Ovarian Cyst, DI for Acute Abdominal Pain Additional Instructions: Tylenol 3 take-home pack, and then Brielle for pain. Phenergan take-home pack, then Zofran for nausea. Toradol as prescribed. Follow-up with Dr. Charles, call Wednesday to make appointment. Return to the emergency department for uncontrollable pain or vomiting or if you develop any fever. Urine culture has been performed, results generally take 2 to 3 days. Follow-up the results of this test with your primary care provider within 2 to 3 days. Prescriptions: Hydrocod/Acet 5/325 mg [Brielle 5/325mg tablet] 1 tab PO Q6HP PRN #10 tab PRN Reason: Pain Transmission Status: Received by [facility] Ketorolac Tromethamine [Toradol 10mg tablet] 10 mg PO Q6HP PRN #10 tab PRN Reason: Moderate Pain Transmission Status: Pending to [facility] Ondansetron [Zofran 4mg ODT] 4 mg PO TIDP PRN #10 tab PRN Reason: Nausea And Vomiting Transmission Status: Pending to [facility] Referrals: Carlos Joseph MD [Primary Care Provider] - - Critical Care Critical Care Time: No Attestation: On 09/26/21, the high probability of a clinically significant, sudden or life threatening deterioration of the following system(s) required my full and direct attention, intervention and personal management. The time I documented below is in addition to time spent performing reported procedures but includes the following listed in this critical care notation. Medical Decision Making - Darius Inquiry Pt receiving controlled substance: Yes Darius was queried for this patient: Yes Risks and benefits of using a controlled substance: were discussed with pt by me Vital Signs: 09/26/21 16:37 09/26/21 17:22 09/26/21 17:30 Temperature 97.5 F L Temperature Source Oral Pulse Rate 86 86 Pulse Rate [Right Radial] 110 H Respiratory Rate 19 16 15 Blood Pressure 133/83 112/69 Blood Pressure [Right Arm] 128/97 H Blood Pressure Mean 89 81 Blood Pressure Mean [Right Arm] 107 Blood Pressure Source [Right Arm] Automatic Cuff Blood Pressure Position [Right Arm] Supine 02 Sat by Pulse Oximetry 98 98 96 Oxygen Delivery Method Room Air 09/26/21 18:00 09/26/21 18:30 Temperature Temperature Source Pulse Rate 68 65 Pulse Rate [Right Radial] Respiratory Rate 18 16 Blood Pressure 112/75 118/77 Blood Pressure [Right Arm] Blood Pressure Mean 83 85 Blood Pressure Mean [Right Arm] Blood Pressure Source [Right Arm] Blood Pressure Position [Right Arm] 02 Sat by Pulse Oximetry 100 100 Oxygen Delivery Method - Lab Data Lab Results 09/26/21 17:03: Urine Color Yellow, Urine Appearance Cloudy, Urine pH 6.5, Ur Specific [place] 1.025, Urine Protein Negative, Urine Glucose (UA) Negative, Urine Ketones Trace, Urine Blood Negative, Urine Nitrate Negative, Urine Bilirubin Negative, Urine Urobilinogen 0.2, Ur Leukocyte Esterase Trace, Urine RBC 3-5, Urine WBC 5-10, Ur Squamous Epith Cells 5-10, Urine Bacteria 2+ 09/26/21 17:03: Urine HCG, Qual Negative 09/26/21 17:05: WBC 8.5, RBC 4.77, Hgb 14.2, Hct 43.2, MCV 90.7, MCH 29.8, MCHC 32.8, RDW 13.9, Plt Count 246, MPV 9.3, Neut % (Auto) 69.8, Lymph % (Auto) 22.7, [place] % (Auto) 5.0, Eos % (Auto) 1.1, Baso % (Auto) 1.4, Neut # (Auto) 5.9, Lymph # (Auto) 1.9, [place] # (Auto) 0.4, Eos # (Auto) 0.1, Baso # (Auto) 0.1 09/26/21 17:05: Sodium 140, Potassium 3.8, Chloride 105, Carbon Dioxide 28, Anion Gap 10.8, BUN 11, Creatinine 0.70, Estimated Creat Clear 147, Estimated GFR 96, Est GFR ( Amer) 117, Glucose 96, Calcium 9.3, Total Bilirubin 0.7, AST 27, ALT 26, Alkaline Phosphatase 80, Total Protein 7.8, Albumin 4.6, Globulin 3.2, Albumin/Globulin Ratio 1.4 09/26/21 17:05: Lipase 131 Result diagrams: 09/26/21 17:05 09/26/21 17:05 Orders (Tests/Meds):
[2021-09-26 19:08] LABS: Lipase 131 U/L (23-300)
--- NOTE | 2021-09-26 19:11 | US_ITS ---
PROCEDURE INFORMATION: Exam: US Pelvis Complete, Transabdominal and US Pelvis, Transvaginal Exam date and time: 09/26/2021 7:25 PM Age: 31 years old Clinical indication: Pelvic pain; Additional info: Pelvic pain, pelvic fluid, possible cyst pain left low pelvis TECHNIQUE: Imaging protocol: Real-time transabdominal and transvaginal pelvic ultrasound (complete) with image documentation. Transvaginal imaging was used for better evaluation of the endometrium, adnexa, and/or cervix. COMPARISON: CT ABDOMEN PELVIS WO CON 09/26/2021 6:04 PM FINDINGS: Uterus: Uterus is within range of normal, measuring 5.6 x 3.1 x 4.1 cm. No focal myometrial masses. There is a small nabothian cyst. The endometrium measures 6.7 mm, and appears within range of normal for the patient's age.. Right ovary/adnexa: The right ovary measures 2.8 x 2.2 x 1.9 cm. No mass. Normal blood flow. Left ovary/adnexa: The left ovary measures 3.1 x 2.1 x 2.5 cm. There is a left ovarian cyst measuring 1.2 cm consistent with functional cyst or follicle. Normal blood flow. Intraperitoneal space: There is a small amount of free nonspecific fluid in the pelvis around the uterus. IMPRESSION: 1. Normal appearance to the uterus and ovaries. 2. Small amount of nonspecific free periuterine fluid.
--- NOTE | 2021-09-26 19:17 | PC.NURSE ---
MD made aware of patients continued pain dull in character to right lower quad. 11/11.
--- NOTE | 2021-09-26 19:23 | PC.NURSE ---
PT TO RADIOLOGY VIA WHEELCHAIR FOR ULTRASOUND.
--- NOTE | 2021-09-26 19:48 | PC.NURSE ---
Pt back from RAD
== END 2021-09-26 20:35 | disposition home or self-care (01) ==
PROVIDERS: Emergency Provider Emergency Medicine; PCP Emergency Medicine
DX: N83.202 Unspecified ovarian cyst, left side (principal); K21.9 Gastro-esophageal reflux disease without esophagitis; J45.909 Unspecified asthma, uncomplicated; F33.1 Major depressive disorder, recurrent, moderate; Z88.0 Allergy status to penicillin; Z88.8 Allergy status to other drugs, medicaments and biological substances
CPT/HCPCS: 74176; 76830; 80053; 81001; 81025; 83690; 85025; 87086; 96365; 96375; 99284; J2405

== ENCOUNTER 2022-03-25 18:04 | Emergency (ER) | payer BC, SELFPAY ==
[2022-03-25] VITALS (9 sets, daily range): BP systolic 93–138; BP diastolic 62–118; PULSE 49–98; RESP 16–19; TEMP 36.7; O2SAT 92–100; BMI 29.9
--- NOTE | 2022-03-25 18:49 | US_ITS ---
PROCEDURE INFORMATION: Exam: US Pelvis, Transvaginal Exam date and time: 03/25/2022 7:33 PM Age: 32 years old Clinical indication: Pelvic pain; Patient HX: HX ofrl qpain--hx of cystg and pcos; Additional info: Ovarian torsion TECHNIQUE: Imaging protocol: Real-time transvaginal pelvic ultrasound with image documentation. Transvaginal imaging was used for better evaluation of the endometrium, adnexa, and/or cervix. COMPARISON: US TRANSVAGINAL 09/26/2021 7:25 PM FINDINGS: Numerous ovarian follicular cysts measuring less than 1 cm bilaterally compatible with polycystic ovarian syndrome. Appropriate Doppler flow within the ovaries. Uterus is unremarkable in appearance. No free fluid in the cul-de-sac or pathologic adnexal mass. Uterus measures 7.0 x 3.0 x 3.1 cm. Endometrium is 2 mm in thickness. Right ovary measures 2.8 x 1.9 x 1.8 cm. Left ovary measures 3.2 x 1.7 x 2.0 cm. Impression: Polycystic ovaries.
--- NOTE | 2022-03-25 18:51 | HMH.EDABDPAI ---
Discharge Plan Disposition Patient Disposition: Still a Patient Prescriptions Prescriptions: No Action epinephrine 0.3 MG/0.3 ML auto-injector 0.3 mg IM NEEDED PRN (Reason: anaphylaxis) Qty: 1 0RF Rx Instructions: Report to hospital if used. Only for severe symptoms. cholecalciferol (vitamin D3) 1,000 UNIT capsule 1,000 unit PO DAILY fluticasone propionate 120 SPR/BOT bottle 1 spr NS DAILY Qty: 1 0RF Rx Instructions: one spray in each nostril daily loratadine 10 MG tablet 10 mg PO DAILY Qty: 30 0RF albuterol sulfate 8.5 GM HFA aerosol inhaler 2 puffs IH Q6HP PRN (Reason: Shortness Of Breath) 30 Days Qty: 1 5RF Referrals Follow up/Referrals: Carlos Joseph MD [Primary Care Provider] - See instructions Clinical Impressions Clinical Impression: Abdominal pain, right lower quadrant Instructions Patient Instructions: DI for Acute Abdominal Pain Discharge ED Provider: Ravindra Tejada Abdominal Pain HPI General Chief Complaint: Abdominal Pain Stated Complaint: PAIN IN ABD AREA, NO ENERGY Time Seen by Provider: 03/25/22 18:52 History of Present Illness HPI narrative: 32-year-old female with history of PCOS presents with right lower quadrant abdominal pain sudden onset and severe. She has history of ovarian cyst that ruptured on the left side. She is currently on her period and is concerned that she may have an ovarian cyst or ovarian torsion. No fever no chills no dysuria no vaginal discharge. Related Data Home Medications Medication Instructions Recorded Confirmed cholecalciferol (vitamin D3) 25 1,000 unit PO DAILY Supplement 07/06/21 12/04/21 mcg (1,000 unit) capsule Previous Rx's Medication Instructions Recorded epinephrine 0.3 mg/0.3 mL 0.3 mg (0.3 mL) IM NEEDED PRN 10/21/20 injection, auto-injector anaphylaxis ##1 albuterol sulfate 90 mcg/actuation 2 puffs inhalation Q6HP PRN 07/05/21 aerosol inhaler Shortness Of Breath 30 days #1 ea fluticasone propionate 50 1 spr intranasal DAILY #1 ea 09/05/21 mcg/actuation nasal spray,suspension loratadine 10 mg tablet 10 mg PO DAILY #30 tabs 09/05/21 Allergies Allergy/AdvReac Type Severity Reaction Status Date / Time amoxicillin [AMOXICILLIN] Allergy Unknown I-RASH Verified 12/04/21 08:35 aspirin [ASPIRIN] Allergy Unknown NA-NAUSEA/V Verified 12/04/21 08:35 OMITING hydromorphone [From DILAUDID] Allergy Unknown S-SWELLS-OR Verified 12/04/21 08:35 AL/THROAT ibuprofen [IBUPROFEN] Allergy Unknown NA-NAUSEA/V Verified 12/04/21 08:35 OMITING Penicillins [PENICILLINS] Allergy Unknown I-RASH Verified 12/04/21 08:35 tetanus and diphtheria Allergy Unknown LOCAL Verified 12/04/21 08:35 toxoids REACTION Tetanus Vaccines and Toxoid Allergy Unknown LOCAL Verified 12/04/21 08:35 REACTION PFSH PFSH Medical History (Updated 03/25/22 @ 18:58 by Sotero Tucker RN) PCOS (polycystic ovarian syndrome) Social History Smoking Status: Never smoker second hand exposure: No alcohol intake: never substance use type: denies use current occupational status: other Travel in the last 8 weeks: None household members: family housing: house ROS Obtained: Yes All systems reviewed & no additional complaints except as documented Physical Exam General General appearance: alert and in no apparent distress Eye Eye exam: Present PERRL and EOMI ENT ENT exam: Present normal exam and normal oropharynx Neck Neck exam: Present normal inspection Chest Chest inspection: Present symmetric chest wall rise Respiratory Respiratory exam: Present normal lung sounds bilaterally; Absent respiratory distress Cardiovascular Cardiovascular exam: Present regular rate and normal rhythm Abdominal Exam Abdominal exam: Present soft and tenderness (Tenderness in right lower quadrant); Absent distention, guarding, rebound or Rizzo's sign Back Exam Back exam: Present normal inspection Neurolog
--- NOTE | 2022-03-25 19:03 | PC.NURSE ---
notified xray of transvaginal ultrasound
[2022-03-25 19:22] LABS: Basophils # 0.1 K/mm3 (0-0.2); Basophils % 1.4 % (0.1-2.0); Eosinophils # 0.2 K/mm3 (0.0-0.4); Eosinophils % 3.1 % (0.1-12.0); Hematocrit 38.5 % (37.0-47.0); Hemoglobin 13.1 g/dL (12.2-16.2); Lymphocytes % 36.5 % (10-50); Mean Corpuscular Hemoglobin 31.3 pg (27.0-31.2); Mean Corpuscular Volume 92.2 fl (81-99); Mean Platelet Volume 8.7 fl (7.4-10.4); Monocytes # 0.3 K/mm3 (0.1-1.0); Monocytes % 6.1 % (1.7-9.3); Neutrophils % 52.9 % (37.0-80.0); Platelet Count 242 K/mm3 (142-424); Red Blood Count 4.17 M/mm3 (4.20-5.40); Red Cell Distribution Width 13.7 % (11.5-17.5); White Blood Count 5.6 K/mm3 (4.8-10.8)
[2022-03-25 19:27] LABS: Chloride 104 mmol/L (98-107); Sodium 141 mmol/L (136-145)
[2022-03-25 19:28] LABS: Potassium 4.4 mmoL/L (3.5-5.1)
[2022-03-25 19:30] LABS: Blood Urea Nitrogen 13 mg/dl (7-17); Creatinine Clearance Estimated 146 mL/min (50-200); Estimated Glomerular Filt Rate 96 ml/min (>60); GFR (African American) 116 ML/MIN (>60)
[2022-03-25 19:31] LABS: Anion Gap 13.4 mEq/L (5-15); Calcium 8.7 mg/dl (8.4-10.2); Carbon Dioxide 28 mmol/L (22.0-30.0); Glucose 81 mg/dl (74-100)
[2022-03-25 19:55] LABS: Microscopic, Urine URINE MICROSCOPIC (MICROSCOPIC)
[2022-03-25 19:56] LABS: HCG Qualitative, Serum Negative (Negative)
--- NOTE | 2022-03-25 19:58 | CT_ITS ---
PROCEDURE INFORMATION: Exam: CT Abdomen And Pelvis With Contrast Exam date and time: 03/25/2022 8:06 PM Age: 32 years old Clinical indication: Abdominal pain; Localized; Right lower quadrant (rlq); Prior surgery; Surgery type: Cholecystectomy; Additional info: Rlq abdominal pain TECHNIQUE: Imaging protocol: Computed tomography of the abdomen and pelvis with contrast. Radiation optimization: All CT scans at this facility use at least one of these dose optimization techniques: automated exposure control; mA and/or kV adjustment per patient size (includes targeted exams where dose is matched to clinical indication); or iterative reconstruction. Contrast material: ISOVUE; Contrast volume: 75 ml; Contrast route: IV; COMPARISON: CT ABDOMEN PELVIS WO CON 09/26/2021 6:04 PM FINDINGS: Lungs: Calcified granulomas in the left lower lobe. Liver: Liver is mildly hypoattenuating but without focal lesion. Gallbladder and bile ducts: Gallbladder is surgically absent. No pathologic dilation of the biliary tree. Pancreas: Normal. No ductal dilation. Spleen: Normal. No splenomegaly. Adrenal glands: Normal. No mass. Kidneys and ureters: Normal. No hydronephrosis. Stomach and bowel: Unremarkable. No obstruction. No mucosal thickening. Appendix: No evidence of appendicitis. Intraperitoneal space: Unremarkable. No free air. No significant fluid collection. Vasculature: Unremarkable. No abdominal aortic aneurysm. Lymph nodes: Unremarkable. No enlarged lymph nodes. Urinary bladder: Unremarkable as visualized. Reproductive: Unremarkable as visualized. Bones/joints: Unremarkable. No acute fracture. Soft tissues: Unremarkable. IMPRESSION: 1. Hepatic steatosis. 2. Prior cholecystectomy. No pathologic dilation of the biliary tree.
[2022-03-25 20:05] LABS: Appearance,Urine CLOUDY (Clear); Bilirubin,Urine Negative (Negative); Blood, Urine 3+ (Negative); Color,Urine RED (Yellow); Glucose,Urine (UA) Negative (Negative); Ketones,Urine Negative (Negative); Leukocyte Esterase,Urine TRACE (Negative); Nitrate,Urine Negative (Negative); PH,Urine 7.5 (5.0-8.5); Protein,Urine 1+ (Negative); Urobilinogen,Urine 0.2 EU/dl (0.2)
[2022-03-25 21:00] LABS: Bacteria,Urine Trace /lpf; RBC,Urine TNTC #/hpf (0-3); WBC,Urine Occasional #/hpf (0-3)
== END 2022-03-25 23:06 | disposition home or self-care (01) ==
PROVIDERS: Emergency Provider Emergency Medicine; PCP Emergency Medicine
DX: R10.31 Right lower quadrant pain (principal); E28.2 Polycystic ovarian syndrome
CPT/HCPCS: 74177; 76830; 80048; 81001; 84703; 85025; 96361; 96374; 96375; 99284; J2405; Q9967

== ENCOUNTER → 2022-04-09 07:39 | Outpatient (CLI) | payer BC, SELFPAY ==
--- NOTE | 2022-04-09 07:43 | MM_ITS ---
PROCEDURE INFORMATION: Exam: MG Bilateral Screening 3D Mammography Exam date and time: 04/09/2022 7:55 AM Age: 32 years old Clinical indication: Screening examination TECHNIQUE: Imaging protocol: Bilateral Screening tomosynthesis and 2D mammography including computer-aided detection (CAD) when performed. COMPARISON: MG MM DIG SCREENING MAMM BI W/CAD 03/19/2021 8:02 AM FINDINGS: MAMMOGRAPHY: Breast composition: The breasts are almost entirely fatty. Mass: None. Architectural distortion: None. Calcifications: No suspicious calcifications. Asymmetric density: None. Skin thickening: None. Axillary adenopathy: None. IMPRESSION: No mammographic evidence of malignancy. Annual screening is recommended unless otherwise clinically indicated. ASSESSMENT: BI-RADS Category 1: Negative
== END ==
PROVIDERS: PCP Emergency Medicine; Visit Provider Nurse Practitioner Obstetrics & Gynecology
DX: Z12.31 Encounter for screening mammogram for malignant neoplasm of breast (principal)
CPT/HCPCS: 77063; 77067

== ENCOUNTER 2022-04-22 17:37 | Emergency (ER) | payer BC, SELFPAY ==
[2022-04-22 18:20] VITALS: BP 139/89; PULSE 109; RESP 18; TEMP 37.7; O2SAT 99; BMI 32.3
--- NOTE | 2022-04-22 18:50 | EXP.UTC ---
Discharge Plan Disposition Patient Disposition: Home, Self-Care Condition: Good Prescriptions Prescriptions: New azithromycin [Zithromax Z-Reginaldo] 250 mg tablet See Rx Instructions .ROUTE .COMPLEX 5 Days Qty: 6 0RF Rx Instructions: For 250 mg dose pack: take 500 mg today (day 1), then 250 mg for 4 days (days 2-5) Referrals Follow up/Referrals: Carlos Joseph MD [Primary Care Provider] - See instructions Activity Restrictions/Add. Instructions Additional Instructions/Restrictions: *Monitor Temp, Over the counter Motrin or Tylenol as directed/as needed Tylenol every 4 hours and Motrin every 6 hours (as long as your family doctor has told you that you can take it) for fever or pain. and straight to ER if unable to lower temp less than 101.0 after medication given *Warm salt water gargles may help to soothe the throat *Throat Lozenges? *Warm fluids like tea with honey may help to soothe the throat? *Sleep elevated *Humidifier/Vaporizer Your throat swab was sent for culture. Those results are typically sent to your primary care. Be sure to follow up in 2-3 days with your family doctor/primary care physician if no improvement so they can review those result and treat if necessary. If you don?t have a primary care doctor, I recommend you get one but in the mean time, you will have to return to a walk in clinic Follow up IMMEDIATELY for new or worsening symptoms or no Noticeable improvement over the next 48-72 hours. 911 for difficulty breathing or swallowing Clinical Impressions Clinical Impression: URI (upper respiratory infection) Stand Alone Forms Stand Alone Forms: Work/School Release Instructions Patient Instructions: Sore Throat, Strep Throat Discharge ED Provider: Naya Norton [facility] [place] HPI General Stated complaint: headache, sore throat , body aches, congestion Mode of Arrival: Ambulatory Source of Information: Patient Limitations: No Limitations Time Seen by Provider: 04/22/22 18:50 Description of Symptoms (Recalled from Triage Doc. by RN): SORE THROAT, FEVER, HEADACHE, CHILLS, BODY ACHES THAT STARTED THIS AFTERNOON HEENT Symptoms (Recalled from RN notes): Yes Resp Symptoms (Recalled from RN notes): No Skin Symptoms (Recalled from RN notes): No MS Symptoms (Recalled from RN notes): No Functional Status (Recalled from RN notes): NA History of Present Illness Provider Complaint: Patient states that she started this afternoon with fever, chills, sore throat body aches and headache States that when she does this she usually has strep throat States that as the day went on she has been having more pain in her throat with swallowing Related Data Previous Rx's Medication Instructions Recorded azithromycin 250 mg tablet See Rx Instructions PO .COMPLEX 5 04/22/22 (Zithromax Z-Reginaldo) days #6 tabs Allergies Allergy/AdvReac Type Severity Reaction Status Date / Time amoxicillin [AMOXICILLIN] Allergy Unknown I-RASH Verified 12/04/21 08:35 aspirin [ASPIRIN] Allergy Unknown NA-NAUSEA/V Verified 12/04/21 08:35 OMITING hydromorphone [From DILAUDID] Allergy Unknown S-SWELLS-OR Verified 12/04/21 08:35 AL/THROAT ibuprofen [IBUPROFEN] Allergy Unknown NA-NAUSEA/V Verified 12/04/21 08:35 OMITING Penicillins [PENICILLINS] Allergy Unknown I-RASH Verified 12/04/21 08:35 tetanus and diphtheria Allergy Unknown LOCAL Verified 12/04/21 08:35 toxoids REACTION Tetanus Vaccines and Toxoid Allergy Unknown LOCAL Verified 12/04/21 08:35 REACTION Worker's Comp Is this a Worker's Comp case?: No [facility] Medical History (Updated 04/22/22 @ 19:05 by Naya Norton APRN) PCOS (polycystic ovarian syndrome) Social History Smoking Status: Never smoker second hand exposure: No alcohol intake: never substance use type: denies use current occupational status: other Travel in the last 8 weeks: None household members: family housing: house ROS Obtained
[2022-04-22 18:54] LABS: UTC Influenza A Antigen Negative (Negative); UTC Strep Screen (Rapid) Negative (Negative)
[2022-04-22 18:55] LABS: UTC Influenza B Antigen Negative (Negative)
[2022-04-22 19:07] VITALS: BP 139/89; PULSE 109; RESP 18; TEMP 37.7; O2SAT 99
== END 2022-04-22 19:10 | disposition home or self-care (01) ==
PROVIDERS: Emergency Provider Nurse Practitioner; PCP Emergency Medicine
DX: J06.9 Acute upper respiratory infection, unspecified (principal)
CPT/HCPCS: 87804; 87880; 99212; G0463

== ENCOUNTER → 2022-06-23 14:24 | Outpatient (CLI) | payer BC, SELFPAY ==
--- NOTE | 2022-06-23 14:27 | XR_ITS ---
FINAL REPORT CLINICAL HISTORY: FOOT/HEEL PAIN No injury, soil checker problem. Plantar fascitis vs arthritis per patient. COMPARISON: 10/09/2020 FINDINGS: Left foot Three views were obtained. There is no acute fracture or dislocation. Note is made of hallux valgus deformity. The joint spaces appear normal. No soft tissue abnormality is identified. IMPRESSION: No acute process. Reviewed, Interpreted and Dictated by Juan Trejo III, MD Transcribed by Marielle Conteh Authenticated and [facility]
== END ==
LOC: RAD 14:24
PROVIDERS: PCP Internal Medicine; Visit Provider Internal Medicine
DX: M79.672 Pain in left foot (principal)
CPT/HCPCS: 73630

== ENCOUNTER 2022-08-12 12:05 | Emergency (ER) | payer BC, SELFPAY ==
[2022-08-12] VITALS (7 sets, daily range): BP systolic 110–123; BP diastolic 74–87; PULSE 58–81; RESP 16–20; TEMP 36.7; O2SAT 96–99; BMI 31.6
--- NOTE | 2022-08-12 12:18 | ECG_ITS ---
APPROVED REPORT Exam: Resting ECG HR:68 bpm ECG Measurements Heart Rate 68 AXES IL 175 P 2 QRSd 80 QRS 13 QT 399 T 8 QTc 416 Conclusion SINUS RHYTHM NORMAL ECG UNCONFIRMED REPORT Electronically signed by : Fernando Sen MD 08/12/2022 21:24:02
--- NOTE | 2022-08-12 12:21 | CT_ITS ---
FINAL REPORT TECHNIQUE: After the administration of intravenous contrast, axial images were obtained through the abdomen and pelvis by computed tomography. The study was performed with techniques to keep radiation dose as low as reasonably achievable, (ALARA). Individual dose reduction techniques using automated exposure control or adjustment of mA and/or kV according to the patient's size were employed. CLINICAL HISTORY: abdominal pain COMPARISON: 03/25/2022 FINDINGS: Abdomen: There is calcified granuloma in the left lung base. The liver parenchyma is homogeneous. The gallbladder is absent. The spleen, pancreas, adrenals and kidneys appear unremarkable. The aorta is normal in caliber. There is no free fluid or adenopathy. Pelvis: The appendix is unremarkable. The uterus is eccentric to the right. The urinary bladder is unremarkable. There are small cysts or follicles in the bilateral ovaries. IMPRESSION: No acute intra-abdominal process. Reviewed, Interpreted and Dictated by Nnamdi Dobbs MD Transcribed by Falguni Middleton Authenticated and [facility]
--- NOTE | 2022-08-12 12:36 | HMH.EDGENADL ---
Discharge Plan Disposition Patient Disposition: Home, Self-Care Prescriptions Prescriptions: New ondansetron 4 mg tablet,disintegrating 4 mg PO Q8H PRN (Reason: nausea and vomiting) 4 Days Qty: 12 0RF No Action azithromycin [Zithromax Z-Reginaldo] 250 mg tablet See Rx Instructions .ROUTE .COMPLEX 5 Days Qty: 6 0RF Rx Instructions: For 250 mg dose pack: take 500 mg today (day 1), then 250 mg for 4 days (days 2-5) Referrals Follow up/Referrals: Nicolas Carpenter MD [Primary Care Provider] - See instructions Activity Restrictions/Add. Instructions Additional Instructions/Restrictions: Return for worsening abdominal pain dizziness. Within 8 hours. Otherwise continue to drink a lot of fluids and stay hydrated and take Zofran for nausea. Follow-up with your primary care physician within the next few days Clinical Impressions Clinical Impression: Abdominal pain Discharge ED Provider: Ravindra Tejada General Adult HPI General Chief complaint: Dizziness Stated complaint: Syncopy nausea dizzy Time Seen by Provider: 08/12/22 12:10 History of Present Illness HPI narrative: 32-year-old female presents with syncopal episode. She is having current period. Does have lower abdominal tenderness and mid abdominal tenderness. Nonradiating intermittent. No right lower quadrant tenderness or right upper quadrant tenderness. She has nausea as well and has been feeling generally weak. No chest pain shortness of air. Has dull frontal headache no numbness weakness or tingling arms or legs. Related Data Previous Rx's Medication Instructions Recorded azithromycin 250 mg tablet See Rx Instructions PO .COMPLEX 5 04/22/22 (Zithromax Z-Reginaldo) days #6 tabs ondansetron 4 mg disintegrating 4 mg PO Q8H PRN nausea and 08/12/22 tablet vomiting 4 days #12 tabs Allergies Allergy/AdvReac Type Severity Reaction Status Date / Time amoxicillin [AMOXICILLIN] Allergy Unknown I-RASH Verified 12/04/21 08:35 aspirin [ASPIRIN] Allergy Unknown NA-NAUSEA/V Verified 12/04/21 08:35 OMITING hydromorphone [From DILAUDID] Allergy Unknown S-SWELLS-OR Verified 12/04/21 08:35 AL/THROAT ibuprofen [IBUPROFEN] Allergy Unknown NA-NAUSEA/V Verified 12/04/21 08:35 OMITING Penicillins [PENICILLINS] Allergy Unknown I-RASH Verified 12/04/21 08:35 tetanus and diphtheria Allergy Unknown LOCAL Verified 12/04/21 08:35 toxoids REACTION Tetanus Vaccines and Toxoid Allergy Unknown LOCAL Verified 12/04/21 08:35 REACTION PFSH [facility] Disclaimer: The information contained in this section may have been updated after the patient was seen, as this information can be updated by other users. Medical History (Updated 08/12/22 @ 15:14 by Ravindra Tejada MD) PCOS (polycystic ovarian syndrome) Social History Smoking Status: Never smoker second hand exposure: No alcohol intake: never substance use type: denies use current occupational status: other Travel in the last 8 weeks: None household members: family housing: house ROS Obtained: Yes All systems reviewed & no additional complaints except as documented Constitutional Constitutional: Denies body ache, Denies chills, Denies fatigue and Reports headache(s) Eyes Eyes: Denies dry eyes ENT Ears, Nose, Mouth, and Throat: Reports dizziness, Reports headache(s) and Denies lip swelling Cardiovascular Cardiovascular: Denies diaphoresis and Denies dyspnea Respiratory Respiratory: Denies dyspnea Gastrointestinal Gastrointestingal: Reports nausea; Denies constipation, diarrhea or hematemesis Genitourinary Female Genitourinary: Denies dysuria Musculoskeletal Musculoskeletal: Denies joint swelling Integumentary/Breasts Skin/Breast: Denies redness and Denies rash Neurologic Neurologic: Reports dizziness and Reports headache(s) Endocrine Endocrine: Denies fatigue Hematologic/Lymphatic Henatologic/Lymphatic: Denies easy bleeding Allergic/Immunologic Allergic/Immunologic: Denies lip
[2022-08-12 13:00] LABS: Basophils # 0.1 K/mm3 (0-0.2); Basophils % 0.8 % (0.1-2.0); Eosinophils # 0.2 K/mm3 (0.0-0.4); Eosinophils % 1.5 % (0.1-12.0); Hematocrit 41.6 % (37.0-47.0); Hemoglobin 14.7 g/dL (12.2-16.2); Lymphocytes # 1.9 K/mm3 (0.7-4.5); Mean Corpuscular HGB Conc 35.3 g/dL (31.8-35.4); Mean Corpuscular Hemoglobin 30.8 pg (27.0-31.2); Mean Platelet Volume 8.7 fl (7.4-10.4); Monocytes # 0.6 K/mm3 (0.1-1.0); Monocytes % 6.4 % (1.7-9.3); Neutrophils # 7.2 K/mm3 (1.8-7.8); Neutrophils % 72.3 % (37.0-80.0); Platelet Count 267 K/mm3 (142-424); Red Blood Count 4.78 M/mm3 (4.20-5.40); White Blood Count 9.9 K/mm3 (4.8-10.8)
[2022-08-12 13:04] LABS: HCG Qualitative, Serum Negative (Negative)
--- NOTE | 2022-08-12 13:07 | PC.NURSE ---
pt medicated per mar at this time, pt states no other needs at this time
[2022-08-12 13:16] LABS: Alanine Aminotransferase 25 U/L (12-78); Albumin Level 4.5 g/dl (3.5-5.0); Albumin/Globulin Ratio 1.3 (1.1-1.8); Alkaline Phosphatase 96 U/L (38-126); Anion Gap 10.5 mEq/L (5-15); Aspartate Amino Transferase 29 U/L (14-36); Bilirubin,Total 0.6 mg/dl (0.2-1.3); Blood Urea Nitrogen 10 mg/dl (7-17); Calcium 9.3 mg/dl (8.4-10.2); Carbon Dioxide 25 mmol/L (22.0-30.0); Chloride 110 mmol/L (98-107); Creatinine Clearance Estimated 135 mL/min (50-200); Estimated Glomerular Filt Rate 82 ml/min (>60); GFR (African American) 99 ML/MIN (>60); Globulin 3.4 g/dL (1.3-3.2); Glucose 98 mg/dl (74-100); Lipase 79 U/L (23-300); Potassium 4.5 mmoL/L (3.5-5.1); Sodium 141 mmol/L (136-145); Total Protein,Serum 7.9 g/dl (6.3-8.2)
[2022-08-12 13:31] LABS: Troponin I < 0.01 ng/ml (0.00-0.034)
--- NOTE | 2022-08-12 13:44 | PC.NURSE ---
pt going to CT
[2022-08-12 17:15] LABS: Troponin I < 0.01 ng/ml (0.00-0.034)
== END 2022-08-12 15:18 | disposition home or self-care (01) ==
PROVIDERS: Emergency Provider Emergency Medicine; PCP Internal Medicine
DX: R55 Syncope and collapse (principal); R42 Dizziness and giddiness; R11.0 Nausea; R10.30 Lower abdominal pain, unspecified; E28.2 Polycystic ovarian syndrome
CPT/HCPCS: 36415; 74177; 80053; 83690; 84484; 84703; 85025; 93005; 96361; 96374; 99285; Q9967

== ENCOUNTER → 2022-09-25 10:34 | Outpatient (CLI) | payer BC, SELFPAY ==
[2022-09-25 10:57] LABS: Basophils % 0.6 % (0.1-2.0); Eosinophils # 0.1 K/mm3 (0.0-0.4); Eosinophils % 2.3 % (0.1-12.0); Hematocrit 38.8 % (37.0-47.0); Hemoglobin 13.2 g/dL (12.2-16.2); Lymphocytes # 1.6 K/mm3 (0.7-4.5); Lymphocytes % 28.8 % (10-50); Mean Corpuscular HGB Conc 33.9 g/dL (31.8-35.4); Mean Corpuscular Hemoglobin 29.5 pg (27.0-31.2); Mean Corpuscular Volume 86.9 fl (81-99); Mean Platelet Volume 8.7 fl (7.4-10.4); Monocytes # 0.3 K/mm3 (0.1-1.0); Monocytes % 5.2 % (1.7-9.3); Neutrophils # 3.4 K/mm3 (1.8-7.8); Platelet Count 217 K/mm3 (142-424); Red Blood Count 4.47 M/mm3 (4.20-5.40); Red Cell Distribution Width 13.3 % (11.5-17.5); White Blood Count 5.4 K/mm3 (4.8-10.8)
[2022-09-25 11:57] LABS: Thyroid Stimulating Hormone 0.97 uIU/mL (0.465-4.68)
[2022-09-25 15:04] LABS: Hemoglobin A1C 4.8 % (4.0-6.0)
[2022-09-26 08:20] LABS: FSH 4.5 mIU/mL (.); Progesterone 1.6 ng/mL (.)
[2022-09-28 20:45] LABS: Antinuclear Antibodies, IFA Negative (.)
[2022-10-05 12:28] LABS: Testosterone, Total, LC/MS 69 ng/dL (.)
== END ==
PROVIDERS: PCP Internal Medicine; Visit Provider Obstetrics & Gynecology
DX: E28.2 Polycystic ovarian syndrome (principal)
CPT/HCPCS: 36415; 82670; 83001; 83036; 84144; 84403; 84443; 85025; 86038

== ENCOUNTER 2023-07-10 12:30 | Emergency (ER) | payer BC, SELFPAY ==
[2023-07-10 13:00] VITALS: BP 114/81; PULSE 98; RESP 18; TEMP 36.9; O2SAT 97; BMI 32.8
--- NOTE | 2023-07-10 13:19 | EXP.UTC ---
Discharge Plan Disposition Patient Disposition: Home, Self-Care Condition: Good Prescriptions Prescriptions: New omeprazole 20 mg capsule,delayed release(DR/EC) 20 mg PO DAILY Qty: 30 0RF ondansetron 4 mg tablet,disintegrating 4 mg PO Q8H PRN (Reason: nausea and vomiting) Qty: 10 0RF No Action levonorgestrel-ethinyl estrad [Aviane] 0.1-20 mg-mcg tablet 1 tab PO DAILY Qty: 84 1RF metformin 500 mg tablet 500 mg PO TIDWMEAL Qty: 90 5RF albuterol sulfate 90 mcg/actuation HFA aerosol inhaler 2 puff inhalation PRN sertraline 25 mg tablet 25 mg PO PRN Referrals Follow up/Referrals: Nicolas Carpenter MD [Primary Care Provider] - See instructions Activity Restrictions/Add. Instructions Additional Instructions/Restrictions: *Monitor Temp, Over the counter Motrin or Tylenol as directed/as needed Tylenol every 4 hours and Motrin every 6 hours (as long as your family doctor has told you that you can take it) for fever or pain. and straight to ER if unable to lower temp less than 101.0 after medication given *Warm salt water gargles may help to soothe the throat *Throat Lozenges? *Warm fluids like tea with honey may help to soothe the throat? *Sleep elevated *Humidifier/Vaporizer Take your medication as prescribed, follow up with your Family Doctor if no improvement Follow up IMMEDIATELY for new or worsening symptoms or no Noticeable improvement over the next 48-72 hours. 911 for difficulty breathing or swallowing Clinical Impressions Clinical Impression: Gastroesophageal reflux disease Qualifiers: Esophagitis presence: without esophagitis Qualified Code(s): K21.9 - Gastro-esophageal reflux disease without esophagitis Instructions Patient Instructions: DI for Gastroesophageal Reflux Disease (GERD), GERD Diet, Omeprazole Discharge ED Provider: Naya Norton [facility] General Stated complaint: sore throat, lower back pain Mode of Arrival: Ambulatory Source of Information: Patient Limitations: No Limitations Time Seen by Provider: 07/10/23 13:19 Description of Symptoms (Recalled from Triage Doc. by RN): PATIENT C/O ACID REFLUX, STOMACH ACHE, AND VOMITING THAT STARTED LAST NIGHT HEENT Symptoms (Recalled from RN notes): No Resp Symptoms (Recalled from RN notes): No Skin Symptoms (Recalled from RN notes): No MS Symptoms (Recalled from RN notes): No Functional Status (Recalled from RN notes): WNL History of Present Illness Provider Complaint: Patient states that she was having some acid reflux last night and she vomited and it made her throat feel irritated States that she is suppose to take prilosec but she is out of it States that she did drink alot of pop yesterday and thinks that may have caused it to act up States that today she is feeling fine her throat is a little irritated from vomiting up the stomach acid Related Data Home Medications Medication Instructions Recorded Confirmed albuterol sulfate 90 mcg/actuation 2 puff inhalation PRN 10/23/22 10/23/22 aerosol inhaler sertraline 25 mg tablet 25 mg PO PRN 10/23/22 10/23/22 Previous Rx's Medication Instructions Recorded levonorgestrel-ethinyl estradiol 1 tab PO DAILY #84 tabs 09/25/22 0.1 mg-20 mcg tablet (Aviane) metformin 500 mg tablet 500 mg PO TIDWMEAL #90 tabs 09/25/22 omeprazole 20 mg capsule,delayed 20 mg PO DAILY #30 caps 07/10/23 release ondansetron 4 mg disintegrating 4 mg PO Q8H PRN nausea and 07/10/23 tablet vomiting #10 tabs Allergies Allergy/AdvReac Type Severity Reaction Status Date / Time amoxicillin [AMOXICILLIN] Allergy Unknown I-RASH Verified 10/23/22 11:20 aspirin [ASPIRIN] Allergy Unknown NA-NAUSEA/V Verified 10/23/22 11:20 OMITING hydromorphone [From DILAUDID] Allergy Unknown S-SWELLS-OR Verified 10/23/22 11:20 AL/THROAT ibuprofen [IBUPROFEN] Allergy Unknown NA-NAUSEA/V Verified 10/23/22 11:20 OMITING Penicillins [PENICILLINS] Allergy Unknown I-RASH Verified 10/23/22 11:20 tetanus and diphtheria Allergy Unknown LOCAL Verified 10/23/22 11:20 toxoids REACTION Tetanus Vaccines and Toxoid Allergy Unknown LOCAL Verified 10/23/22 11:20 REACTION Worker's Comp Is this a Worker's Comp case?: No [facility] Disclaimer: The information contained in this section may have been updated after the patient was seen, as this information can be updated by other users. Medical History Cellulitis PCOS (polycystic ovarian syndrome) Surgical History History of esophagogastroduodenoscopy (EGD) Hx of cholecystectomy Hx of wisdom tooth extraction Family History Other Cancer Social History Smoking Status: Never smoker second hand exposure: No alcohol intake: never substance use type: denies use current occupational status: other Travel in the last 8 weeks: None household members: family housing: house ROS Obtained: Yes All systems reviewed & no additional complaints except as documented and Yes Systems reviewed as appropriate & no additional complaints except as documented Constitutional Constitutional: Reports system reviewed and no additional complaints, except as documented, Reports as per HPI, Denies body ache, Denies fever(s) and Denies headache(s) ENT Ears, Nose, Mouth, and Throat: Reports system reviewed and no additional complaints, except as documented, Reports as per HPI and Denies headache(s) Cardiovascular Cardiovascular: Reports system reviewed and no additional complaints, except as documented and Reports as per HPI Respiratory Respiratory: Reports system reviewed and no additional complaints, except as documented and Reports as per HPI Gastrointestinal Gastrointestingal: Reports system reviewed and no additional complaints, except as documented, as per HPI, reflux (last night) and vomiting (last night); Denies abdominal pain Genitourinary Female Genitourinary: Reports system reviewed and no additional complaints, except as documented and Reports as per HPI Neurologic Neurologic: Denies headache(s) Physical Exam General General appearance: alert and in no apparent distress ENT ENT exam: Present mucous membranes moist Expanded ENT Exam Nose exam: Absent sinus tenderness Throat exam: Present normal inspection Respiratory Respiratory exam: Present normal lung sounds bilaterally; Absent respiratory distress or wheezes Cardiovascular Cardiovascular exam: Present regular rate, normal rhythm and normal heart sounds Abdominal Exam Abdominal exam: Present soft and normal bowel sounds; Absent distention or tenderness Neurological Exam Neurological exam: Present alert, oriented X3 and normal gait Medical Decision Making Darius Inquiry Pt receiving controlled substance: No Darius was queried for this patient: No Vital Signs: 07/10/23 13:00 Temperature 98.4 F Temperature Source Oral Pulse Rate [Left Brachial] 98 H Respiratory Rate 18 Blood Pressure [Left Arm] 114/81 Blood Pressure Mean [Left Arm] 92 Blood Pressure Source [Left Arm] Automatic Cuff Blood Pressure Position [Left Arm] Sitting 02 Sat by Pulse Oximetry 97 Oxygen Delivery Method Room Air
[2023-07-10 13:20] LABS: UTC Influenza A Antigen Negative (Negative); UTC Influenza B Antigen Negative (Negative); UTC Strep Screen (Rapid) Negative (Negative)
[2023-07-10 13:35] VITALS: BP 114/81; PULSE 98; RESP 18; TEMP 36.9; O2SAT 97
== END 2023-07-10 13:37 | disposition home or self-care (01) ==
PROVIDERS: Emergency Provider Nurse Practitioner; PCP Internal Medicine
DX: K21.9 Gastro-esophageal reflux disease without esophagitis (principal); R11.2 Nausea with vomiting, unspecified; R07.0 Pain in throat
CPT/HCPCS: 87804; 87880; 99212; 99214; G0463

== ENCOUNTER 2024-02-21 12:28 | Emergency (ER) | payer BC, SELFPAY ==
[2024-02-21 13:15] VITALS: BP 124/75; PULSE 104; RESP 17; TEMP 36.7; O2SAT 99; BMI 29.9
--- NOTE | 2024-02-21 13:18 | ED_ITS ---
Discharge Plan Disposition Patient Disposition: Home, Self-Care Condition: Good Prescriptions Prescriptions: New azithromycin [Zithromax] 250 mg tablet 250 mg PO UD DOSE PK Qty: 6 0RF Rx Instructions: Take two (2) tablets today, then one (1) tablet days #2 thru #5 [id number] [Bromfed DM] 2-30-10 mg/5 mL Syrup 5 ml PO Q6H PRN (Reason: Cough) Qty: 240 0RF ondansetron 4 mg Tablet,Disintegrating 4 mg PO Q8H PRN (Reason: Nausea) Qty: 12 0RF No Action levonorgestrel-ethinyl estrad [Aviane] 0.1-20 mg-mcg tablet 1 tab PO DAILY Qty: 84 1RF metformin 500 mg tablet 500 mg PO TIDWMEAL Qty: 90 5RF albuterol sulfate 90 mcg/actuation HFA aerosol inhaler 2 puff inhalation PRN sertraline 25 mg tablet 25 mg PO PRN omeprazole 20 mg capsule,delayed release(DR/EC) 20 mg PO DAILY Qty: 30 0RF ondansetron 4 mg tablet,disintegrating 4 mg PO Q8H PRN (Reason: nausea and vomiting) Qty: 10 0RF Referrals Follow up/Referrals: Nicolas Carpenter MD [Primary Care Provider] - See instructions Activity Restrictions/Add. Instructions Additional Instructions/Restrictions: Drink plenty of fluids. Take tylenol or ibuprofen for pain or fever. Take the medications as directed. Follow up with your regular doctor. GO TO THE ER FOR ANY WORSENING SYMPTOMS Clinical Impressions Clinical Impression: Acute viral syndrome, Sinusitis Stand Alone Forms Stand Alone Forms: Work/School Release Instructions Patient Instructions: DI for Sinusitis, DI for Viral Syndrome Print Language Print Language: Taiwanese Discharge ED Provider: [place] Nayak [facility] HPI General Stated complaint: weakness, body aches, fever Time Seen by Provider: 02/21/24 13:18 Related Data Home Medications ?Medication ?Instructions ?Recorded ?Confirmed albuterol sulfate 90 mcg/actuation 2 puff inhalation PRN 10/23/22 10/23/22 aerosol inhaler sertraline 25 mg tablet 25 mg PO PRN 10/23/22 10/23/22 Previous Rx's ?Medication ?Instructions ?Recorded levonorgestrel-ethinyl estradiol 1 tab PO DAILY #84 tabs 09/25/22 0.1 mg-20 mcg tablet (Aviane) metformin 500 mg tablet 500 mg PO TIDWMEAL #90 tabs 09/25/22 omeprazole 20 mg capsule,delayed 20 mg PO DAILY #30 caps 07/10/23 release ondansetron 4 mg disintegrating 4 mg PO Q8H PRN nausea and 07/10/23 tablet vomiting #10 tabs azithromycin 250 mg tablet 250 mg PO UD DOSE PK #6 tabs 02/21/24 (Zithromax) [id number] 5 ml PO Q6H PRN Cough #240 mL 02/21/24 2 mg-30 mg-10 mg/5 mL oral syrup (Bromfed DM) ondansetron 4 mg disintegrating 4 mg PO Q8H PRN Nausea #12 tabs 02/21/24 tablet Allergies Allergy/AdvReac Type Severity Reaction Status Date / Time amoxicillin [AMOXICILLIN] Allergy Unknown I-RASH Verified 10/23/22 11:20 aspirin [ASPIRIN] Allergy Unknown NA-NAUSEA/V Verified 10/23/22 11:20 OMITING hydromorphone [From DILAUDID] Allergy Unknown S-SWELLS-OR Verified 10/23/22 11:20 AL/THROAT ibuprofen [IBUPROFEN] Allergy Unknown NA-NAUSEA/V Verified 10/23/22 11:20 OMITING Penicillins [PENICILLINS] Allergy Unknown I-RASH Verified 10/23/22 11:20 tetanus and diphtheria Allergy Unknown LOCAL Verified 10/23/22 11:20 toxoids REACTION Tetanus Vaccines and Toxoid Allergy Unknown LOCAL Verified 10/23/22 11:20 REACTION PFSH PFSH Disclaimer: The information contained in this section may have been updated after the patient was seen, as this information can be updated by other users. Medical History Cellulitis PCOS (polycystic ovarian syndrome) Surgical History History of esophagogastroduodenoscopy (EGD) Hx of cholecystectomy Hx of wisdom tooth extraction Family History Other Cancer Social History Smoking Status: Never smoker second hand exposure: No alcohol intake: never substance use type: denies use current occupational status: other Travel in the last 8 weeks: None household members: family housing: house ROS Obtained: Yes All systems reviewed & no additional complaints except as documented Constitutional Constitutional: Reports chills and Reports fever(s) Eyes Eyes: Denies eye discharge ENT Ears, Nose, Mouth, and Throat: Reports as per HPI Cardiovascular Cardiovascular: Denies chest pain Respiratory Respiratory: Denies chest congestion and Reports cough Gastrointestinal Gastrointestingal: Reports nausea; Denies abdominal pain, constipation, cramping, diarrhea or vomiting Musculoskeletal Musculoskeletal: Denies arthralgias Integumentary/Breasts Skin/Breast: Denies rash Neurologic Neurologic: Denies paresthesias Physical Exam General General appearance: alert and in no apparent distress Eye Eye exam: Present normal appearance, PERRL and EOMI ENT ENT exam: Present mucous membranes moist and normal external ear exam Expanded ENT Exam External ear exam: Present normal external inspection TM/Canal exam: Bilateral TM: erythema and bulging Nose exam: Absent sinus tenderness Nasal speculum exam: Bilateral: normal Mouth exam: Present normal external inspection; Absent drooling Teeth exam: Present normal inspection Throat exam: Present tonsillar erythema and tonsillomegaly Neck Neck exam: Present normal inspection, full ROM and trachea midline; Absent tenderness, lymphadenopathy or thyromegaly Chest Chest inspection: Present normal inspection and symmetric chest wall rise; Absent tenderness or rash Respiratory Respiratory exam: Present normal lung sounds bilaterally; Absent respiratory distress, wheezes, stridor or accessory muscle use Cardiovascular Cardiovascular exam: Present regular rate, normal rhythm and normal heart sounds Abdominal Exam Abdominal exam: Present soft; Absent distention, tenderness, guarding, rebound or rigidity Extremities Exam Extremities exam: Present normal inspection, full ROM and normal capillary refill; Absent tenderness or calf tenderness Back Exam Back exam: Present normal inspection and full ROM; Absent tenderness Neurological Exam Neurological exam: Present alert and oriented X3 Psychiatric Psychiatric exam: Present normal affect and normal mood Skin Skin exam: Present warm, dry, intact and normal color Lymphatic Lymphatic Findings: no adenopathy Medical Decision Making Medical Records Medical records reviewed: No I reviewed the patient's medical records. Darius Inquiry Pt receiving controlled substance: No
[2024-02-21 13:23] LABS: Influenza A, PCR Not Detected (NotDetected); Influenza B, PCR Not Detected (NotDetected)
[2024-02-21 13:27] LABS: UTC Strep Screen (Rapid) Negative (Negative)
[2024-02-21 13:55] LABS: Coronavirus 19, PCR Detected (NotDetected)
[2024-02-21 13:57] VITALS: BP 124/75; PULSE 104; RESP 17; TEMP 36.7; O2SAT 99
== END 2024-02-21 14:00 | disposition home or self-care (01) ==
PROVIDERS: Emergency Provider Nurse Practitioner Family; PCP Internal Medicine
DX: U07.1 COVID-19 (principal); J01.90 Acute sinusitis, unspecified; R50.9 Fever, unspecified; R53.1 Weakness
CPT/HCPCS: 87636; 87880; 99212; 99214; G0463

== ENCOUNTER 2024-07-26 18:22 | Emergency (ER) | payer BC, SELFPAY ==
--- NOTE | 2024-07-26 18:25 | HMH.EDGENADL ---
Discharge Plan Disposition Patient Disposition: Home, Self-Care Condition: Good Prescriptions Prescriptions: New clindamycin HCl [Cleocin HCl] 150 mg capsule 450 mg PO TID 7 Days Qty: 63 0RF No Action levonorgestrel-ethinyl estrad [Aviane] 0.1-20 mg-mcg tablet 1 tab PO DAILY Qty: 84 1RF metformin 500 mg tablet 500 mg PO TIDWMEAL Qty: 90 5RF albuterol sulfate 90 mcg/actuation HFA aerosol inhaler 2 puff inhalation PRN sertraline 25 mg tablet 25 mg PO PRN omeprazole 20 mg capsule,delayed release(DR/EC) 20 mg PO DAILY Qty: 30 0RF ondansetron 4 mg tablet,disintegrating 4 mg PO Q8H PRN (Reason: nausea and vomiting) Qty: 10 0RF azithromycin [Zithromax] 250 mg tablet 250 mg PO UD DOSE PK Qty: 6 0RF Rx Instructions: Take two (2) tablets today, then one (1) tablet days #2 thru #5 [id number] [Bromfed DM] 2-30-10 mg/5 mL Syrup 5 ml PO Q6H PRN (Reason: Cough) Qty: 240 0RF ondansetron 4 mg Tablet,Disintegrating 4 mg PO Q8H PRN (Reason: Nausea) Qty: 12 0RF Referrals Follow up/Referrals: Nicolas Carpenter MD [Primary Care Provider] - See instructions Activity Restrictions/Add. Instructions Additional Instructions/Restrictions: Please keep the wound clean with soap and water. You may use bacitracin or Neosporin ointment. Follow-up with your PCP if you see any redness swelling drainage increasing pain. Return to the ER as needed for any worsening signs or symptoms. Clinical Impressions Clinical Impression: Dog bite of skin of lip Qualifiers: Encounter type: initial encounter Qualified Code(s): S01.551A - Open bite of lip, initial encounter Instructions Patient Instructions: Animal Bites Print Language Print Language: Swedish Discharge ED Provider: Taz Almanzar General Adult HPI <LAUREANO Fontenot - Last Filed: 07/26/24 19:28> General Chief complaint: Animal Bite Stated complaint: AO 1-22 biten by dog Time Seen by Provider: 07/26/24 18:24 History of Present Illness HPI narrative: Patient presents for evaluation of a dog bite. Patient was accidentally bit by her puppy during play. She suffered a small puncture wound to the right upper lip that does not involve vermilion border. It did not penetrate into the oral cavity. She denies any numbness tingling loss of motor or sensory. Related Data Home Medications ?Medication ?Instructions ?Recorded ?Confirmed albuterol sulfate 90 mcg/actuation 2 puff inhalation PRN 10/23/22 10/23/22 aerosol inhaler sertraline 25 mg tablet 25 mg PO PRN 10/23/22 10/23/22 Previous Rx's ?Medication ?Instructions ?Recorded levonorgestrel-ethinyl estradiol 1 tab PO DAILY #84 tabs 09/25/22 0.1 mg-20 mcg tablet (Aviane) metformin 500 mg tablet 500 mg PO TIDWMEAL #90 tabs 09/25/22 omeprazole 20 mg capsule,delayed 20 mg PO DAILY #30 caps 07/10/23 release ondansetron 4 mg disintegrating 4 mg PO Q8H PRN nausea and 07/10/23 tablet vomiting #10 tabs azithromycin 250 mg tablet 250 mg PO UD DOSE PK #6 tabs 02/21/24 (Zithromax) [id number]-[id number]-AG 5 ml PO Q6H PRN Cough #240 mL 02/21/24 2 mg-30 mg-10 mg/5 mL oral syrup (Bromfed DM) ondansetron 4 mg disintegrating 4 mg PO Q8H PRN Nausea #12 tabs 02/21/24 tablet clindamycin HCl 150 mg capsule 450 mg (3 x 150 mg) PO TID 7 days 07/26/24 (Cleocin HCl) #63 caps Allergies Allergy/AdvReac Type Severity Reaction Status Date / Time amoxicillin (AMOXICILLIN) Allergy Unknown I-RASH Verified 07/26/24 18:48 aspirin (ASPIRIN) Allergy Unknown NA-NAUSEA/V Verified 07/26/24 18:48 OMITING hydromorphone (From DILAUDID) Allergy Unknown S-SWELLS-OR Verified 07/26/24 18:48 AL/THROAT ibuprofen (IBUPROFEN) Allergy Unknown NA-NAUSEA/V Verified 07/26/24 18:48 OMITING Penicillins (PENICILLINS) Allergy Unknown I-RASH Verified 07/26/24 18:48 tetanus and diphtheria Allergy Unknown LOCAL Verified 07/26/24 18:48 toxoids REACTION Tetanus Vaccines and Toxoid Allergy Unknown LOCAL Verified 07/26/24 18:48 REACTION PFSH <LAUREANO Fontenot - Last Filed: 07/26/24 19:28> [facility] Disclaimer: The information contained in this section may have been updated after the patient was seen, as this information can be updated by other users. Medical History Cellulitis PCOS (polycystic ovarian syndrome) Surgical History History of esophagogastroduodenoscopy (EGD) Hx of cholecystectomy Hx of wisdom tooth extraction Family History Other Cancer Social History Smoking Status: Never smoker second hand exposure: No alcohol intake: never substance use type: denies use current occupational status: other Travel in the last 8 weeks: None household members: family housing: house Have you lived/traveled outside [place] in past 30 days?: No Contact w/someone who lives/traveled outside US past 30 days?: No Exposure to someone with infectious disease in past 14 days?: No Do you have a fever (greater than 100.4 F or 38 C)?: No Have you tested positive for COVID-19: No Exposed to someone with COVID-19 in past 14 days?: No Do you have a sore throat?: No Do you have a cough?: No Do you have any weakness?: No Do you have any diarrhea?: No Are you experiencing any unusual bleeding?: No Do you have any muscle aches/pain?: No Do you have any abdominal pain?: No Are you experiencing loss of taste or smell?: No Other Medical History Have you received the Flu Vaccine for this season: No Have you received the Pneumonia Vaccine: No <LAUREANO Fontenot - Last Filed: 07/26/24 19:28> ROS Obtained: Yes Systems reviewed as appropriate & no additional complaints except as documented Physical Exam <LAUREANO Fontenot - Last Filed: 07/26/24 19:28> General General appearance: alert Respiratory Respiratory exam: Present normal lung sounds bilaterally Cardiovascular Cardiovascular exam: Present regular rate Neurological Exam Neurological exam: Present alert and oriented X3 Medical Decision Making <LAUREANO Fontenot - Last Filed: 07/26/24 19:28> Medical Records Screening: Per USPSTF and CDC recommendations, given the prevalence of disease in our region, it is our hospital?s policy to screen for HIV and viral Hepatitis for all patients aged 18 and over and those with ongoing risk factors. Darius Inquiry Pt receiving controlled substance: No Vital Signs: 07/26/24 18:40 07/26/24 19:30 Temperature 97.8 F 98.3 F Temperature Source Oral Pulse Rate 90 Pulse Rate [Left] 108 H Respiratory Rate 18 20 Blood Pressure 132/84 Blood Pressure [Right Arm] 129/97 H Blood Pressure Mean [Right Arm] 107 Blood Pressure Source [Right Arm] Automatic Cuff Blood Pressure Position [Right Arm] Sitting 02 Sat by Pulse Oximetry 99 Oxygen Delivery Method Room Air Room Air Orders (Tests/Meds): ED MEDICATIONS Discontinued Medications Generic Name Dose Route Start Last Admin Trade Name Freq PRN Reason Stop Dose Admin Clindamycin HCl 450 mg 07/26/24 19:04 07/26/24 19:12 Clindamycin 150mg Capsule PO 07/26/24 19:05 450 mg ONCE ONE Administration Medical Decision Narrative: In summary patient is a 34-year-old female who presents to the emergency department for evaluation of dog bite. Patient was bitten by her own 1 year puppy who is up-to-date and fully vaccinated. Patient is hemodynamically stable with a blood pressure 129/97 heart rate 108 and sinus tachycardia on the bedside monitor breathing 18 times a minute satting at 99% on room air upon arrival, with a temperature of 97.8. Physical exam is remarkable for approximately 0.75 cm linear laceration/puncture to the right upper lip that does not involve the vermilion border. It does not penetrate into the oral cavity.. Differential diagnosis could include deep versus superficial puncture however there are no red flags to suggest other than a simple superficial laceration. Initial workup will be was considered including exam under anesthesia however wound adequately assessed without that. Initial interventions include Tdap. Given this patient is appropriate for discharge with a prescription for Cleocin as patient has reported intolerance to penicillin and strict return precautions. Patient to follow-up with PCP to follow wound progression. <Taz Almanzar MD - Last Filed: 07/26/24 19:34> Vital Signs: 07/26/24 18:40 07/26/24 19:30 Temperature 97.8 F 98.3 F Temperature Source Oral Pulse Rate 90 Pulse Rate [Left] 108 H Respiratory Rate 18 20 Blood Pressure 132/84 Blood Pressure [Right Arm] 129/97 H Blood Pressure Mean [Right Arm] 107 Blood Pressure Source [Right Arm] Automatic Cuff Blood Pressure Position [Right Arm] Sitting 02 Sat by Pulse Oximetry 99 Oxygen Delivery Method Room Air Room Air Orders (Tests/Meds): ED MEDICATIONS Discontinued Medications Generic Name Dose Route Start Last Admin Trade Name Freq PRN Reason Stop Dose Admin Clindamycin HCl 450 mg 07/26/24 19:04 07/26/24 19:12 Clindamycin 150mg Capsule PO 07/26/24 19:05 450 mg ONCE ONE Administration Medical Decision Narrative: In summary patient is a 34-year-old female who presents to the emergency department for evaluation of dog bite. Patient was bitten by her own 1 year puppy who is up-to-date and fully vaccinated. Patient is hemodynamically stable with a blood pressure 129/97 heart rate 108 and sinus tachycardia on the bedside monitor breathing 18 times a minute satting at 99% on room air upon arrival, with a temperature of 97.8. Physical exam is remarkable for approximately 0.75 cm linear laceration/puncture to the right upper lip that does not involve the vermilion border. It does not penetrate into the oral cavity.. Differential diagnosis could include deep versus superficial puncture however there are no red flags to suggest other than a simple superficial laceration. Initial workup will be was considered including exam under anesthesia however wound adequately assessed without that. Initial interventions include Tdap. Given this patient is appropriate for discharge with a prescription for Cleocin as patient has reported intolerance to penicillin and strict return precautions. Patient to follow-up with PCP to follow wound progression. I was consulted by the [facility], and we discussed the complexity of the problems being addressed. I approved the treatment and management plan for this patient's care in the Emergency Department, thus performing a substantive portion of the medical decision making. Taz Almanzar MD Critical Care <LAUREANO Fontenot - Last Filed: 07/26/24 19:28> Critical Care Time Critical Care Time: No
[2024-07-26 18:40] VITALS: BP 129/97; PULSE 108; RESP 18; TEMP 36.6; O2SAT 99; BMI 31.6
[2024-07-26] MEDS: CLINDAMYCIN 150MG CAPSULE 450 MG PO (19:12)
[2024-07-26 19:30] VITALS: BP 132/84; PULSE 90; RESP 20; TEMP 36.8; O2SAT 100
== END 2024-07-26 19:31 | disposition home or self-care (01) ==
PROVIDERS: Emergency Provider Emergency Medicine; PCP Internal Medicine
DX: S01.551A Open bite of lip, initial encounter (principal); W54.0XXA Bitten by dog, initial encounter; Y93.89 Activity, other specified; Y92.9 Unspecified place or not applicable; Z23 Encounter for immunization
CPT/HCPCS: 90471; 90715; 99283

== ENCOUNTER 2024-10-25 16:00 | Emergency (ER) | payer BC, SELFPAY ==
--- NOTE | 2024-10-25 16:03 | HMH.EDGENADL ---
Discharge Plan Disposition Patient Disposition: Home, Self-Care Prescriptions Prescriptions: No Action levonorgestrel-ethinyl estrad [Aviane] 0.1-20 mg-mcg tablet 1 tab PO DAILY Qty: 84 1RF metformin 500 mg tablet 500 mg PO TIDWMEAL Qty: 90 5RF albuterol sulfate 90 mcg/actuation HFA aerosol inhaler 2 puff inhalation PRN sertraline 25 mg tablet 25 mg PO PRN omeprazole 20 mg capsule,delayed release(DR/EC) 20 mg PO DAILY Qty: 30 0RF ondansetron 4 mg tablet,disintegrating 4 mg PO Q8H PRN (Reason: nausea and vomiting) Qty: 10 0RF azithromycin [Zithromax] 250 mg tablet 250 mg PO UD DOSE PK Qty: 6 0RF Rx Instructions: Take two (2) tablets today, then one (1) tablet days #2 thru #5 sigoatmhyloucgb-ytvfmpjkb-LF [Bromfed DM] 2-30-10 mg/5 mL Syrup 5 ml PO Q6H PRN (Reason: Cough) Qty: 240 0RF ondansetron 4 mg Tablet,Disintegrating 4 mg PO Q8H PRN (Reason: Nausea) Qty: 12 0RF clindamycin HCl [Cleocin HCl] 150 mg capsule 450 mg PO TID 7 Days Qty: 63 0RF Referrals Follow up/Referrals: Nicolas Carpenter MD [Primary Care Provider] - See instructions Activity Restrictions/Add. Instructions Additional Instructions/Restrictions: Follow-up with your primary care doctor. Give them a call to have a follow-up appointment in the next 2 weeks. Also follow-up with psychology. You have been given information to establish care. Please return to the emergency department with any new, concerning, worsening symptoms. Clinical Impressions Clinical Impression: Facial rash, Anxiety Chest pain Qualifiers: Chest pain type: unspecified Qualified Code(s): R07.9 - Chest pain, unspecified Bilateral knee pain Qualifiers: Chronicity: acute Qualified Code(s): M25.561 - Pain in right knee Print Language Print Language: Burmese Discharge ED Provider: Alvarado Carmona General Adult HPI General Chief complaint: Upper Respiratory Infection Stated complaint: back and legs hurt and side of neck Time Seen by Provider: 10/25/24 16:02 Mode of Arrival: Ambulatory Source of Information: Patient Limitations: No Limitations History of Present Illness HPI narrative: This is a 34-year-old female with a history of anxiety and PCOS who presents with multiple complaints. She states that the majority of her symptoms began last week. Has been having hot flashes, chest discomfort/tightness that is centralized and worse with inspiration with associated palpitations. She states that she feels very anxious whenever these happen and she believes that it is primarily her anxiety. Also reports redness on her cheeks bilaterally that began a few months ago. She states that she does not work out in the sun and that she typically does not have a rash like this. Also reports intermittent bilateral knee pain, worse on the right than the left. Denies any swelling of her joints. States that she also has a history of hypothyroidism but does not currently take any medications. Has not seen a primary care doctor in several years. States that she also has not gotten into see a therapist recently. States that she has had passive suicidal ideation several months ago, last in August but does not currently have any suicidal ideation or homicidal ideation. She does not take any psychotropic medications. Related Data Home Medications ?Medication ?Instructions ?Recorded ?Confirmed albuterol sulfate 90 mcg/actuation 2 puff inhalation PRN 10/23/22 10/23/22 aerosol inhaler sertraline 25 mg tablet 25 mg PO PRN 10/23/22 10/23/22 Previous Rx's ?Medication ?Instructions ?Recorded levonorgestrel-ethinyl estradiol 1 tab PO DAILY #84 tabs 09/25/22 0.1 mg-20 mcg tablet (Aviane) metformin 500 mg tablet 500 mg PO TIDWMEAL #90 tabs 09/25/22 omeprazole 20 mg capsule,delayed 20 mg PO DAILY #30 caps 07/10/23 release ondansetron 4 mg disintegrating 4 mg PO Q8H PRN nausea and 07/10/23 tablet vomiting #10 tabs azithromycin 250 mg tablet 250 mg PO UD DOSE PK #6 tabs 02/21/24 (Zithromax) hjlyyisdjjdllgn-yuafxsahcfsqdfv-YQ 5 ml PO Q6H PRN Cough #240 mL 02/21/24 2 mg-30 mg-10 mg/5 mL oral syrup (Bromfed DM) ondansetron 4 mg disintegrating 4 mg PO Q8H PRN Nausea #12 tabs 02/21/24 tablet clindamycin HCl 150 mg capsule 450 mg (3 x 150 mg) PO TID 7 days 07/26/24 (Cleocin HCl) #63 caps Allergies Allergy/AdvReac Type Severity Reaction Status Date / Time amoxicillin (AMOXICILLIN) Allergy Unknown I-RASH Verified 07/26/24 18:48 aspirin (ASPIRIN) Allergy Unknown NA-NAUSEA/V Verified 07/26/24 18:48 OMITING hydromorphone (From DILAUDID) Allergy Unknown S-SWELLS-OR Verified 07/26/24 18:48 AL/THROAT ibuprofen (IBUPROFEN) Allergy Unknown NA-NAUSEA/V Verified 07/26/24 18:48 OMITING Penicillins (PENICILLINS) Allergy Unknown I-RASH Verified 07/26/24 18:48 tetanus and diphtheria Allergy Unknown LOCAL Verified 07/26/24 18:48 toxoids REACTION Tetanus Vaccines and Toxoid Allergy Unknown LOCAL Verified 07/26/24 18:48 REACTION PFSH PFSH Disclaimer: The information contained in this section may have been updated after the patient was seen, as this information can be updated by other users. Medical History Cellulitis PCOS (polycystic ovarian syndrome) Surgical History History of esophagogastroduodenoscopy (EGD) Hx of cholecystectomy Hx of wisdom tooth extraction Family History Other Cancer Social History Smoking Status: Never smoker second hand exposure: No alcohol intake: never substance use type: denies use current occupational status: other Travel in the last 8 weeks: None household members: family housing: house Have you lived/traveled outside US in past 30 days?: No Contact w/someone who lives/traveled outside US past 30 days?: No Exposure to someone with infectious disease in past 14 days?: No Do you have a fever (greater than 100.4 F or 38 C)?: No Have you tested positive for COVID-19: No Exposed to someone with COVID-19 in past 14 days?: No Do you have a sore throat?: No Do you have a cough?: No Do you have any weakness?: No Do you have any diarrhea?: No Are you experiencing any unusual bleeding?: No Do you have any muscle aches/pain?: No Do you have any abdominal pain?: No Are you experiencing loss of taste or smell?: No Other Medical History Have you received the Flu Vaccine for this season: No Have you received the Pneumonia Vaccine: No ROS Obtained: Yes All systems reviewed & no additional complaints except as documented Physical Exam General General appearance: alert and in no apparent distress Head Head exam: atraumatic Eye Eye exam: Present normal appearance, PERRL and EOMI Neck Neck exam: Present normal inspection and full ROM Chest Chest inspection: Present symmetric chest wall rise Respiratory Respiratory exam: Present normal lung sounds bilaterally; Absent respiratory distress Cardiovascular Cardiovascular exam: Present normal rhythm and tachycardia Abdominal Exam Abdominal exam: Present soft; Absent distention, tenderness, guarding or rebound Extremities Exam Extremities exam: Present normal inspection and full ROM; Absent tenderness or joint swelling Neurological Exam Neurological exam: Present alert and oriented X3 Psychiatric Psychiatric exam: Present anxious; Absent manic, homicidal ideation or suicidal ideation Skin Skin exam: Present warm, dry and rash (Malar rash present) Medical Decision Making Medical Records Medical records reviewed: Yes I reviewed the patient's medical records. Screening: Per USPSTF and CDC recommendations, given the prevalence of disease in our region, it is our hospital?s policy to screen for HIV and viral Hepatitis for all patients aged 18 and over and those with ongoing risk factors. MR Comment: Emergency department visit from 07/26/2024 notable for presentation after dog bite Darius Inquiry Pt receiving controlled substance: No Vital Signs: 10/25/24 16:05 10/25/24 16:13 10/25/24 16:15 Temperature 98 F Temperature Source Temporal Artery Scan Pulse Rate 122 H 116 H Pulse Rate [Right] 119 H Respiratory Rate 18 Blood Pressure 120/93 H 142/86 H Blood Pressure [Right Arm] 124/81 Blood Pressure Mean [Right Arm] 95 Blood Pressure Source [Right Arm] Automatic Cuff Blood Pressure Position [Right Arm] Sitting 02 Sat by Pulse Oximetry 100 97 97 Oxygen Delivery Method Room Air Room Air 10/25/24 16:30 10/25/24 18:34 Temperature Temperature Source Pulse Rate 101 H 88 Pulse Rate [Right] Respiratory Rate Blood Pressure 118/86 115/81 Blood Pressure [Right Arm] Blood Pressure Mean [Right Arm] Blood Pressure Source [Right Arm] Blood Pressure Position [Right Arm] 02 Sat by Pulse Oximetry 96 98 Oxygen Delivery Method Room Air Room Air Lab Data Lab Results 10/25/24 16:08: SARS-CoV-2 (PCR) Not detected, Influenza A Untype (PCR) Not detected, Influenza Type B (PCR) Not detected 10/25/24 16:43: WBC 11.1 H, RBC 4.28, Hgb 12.9, Hct 36.5 L, MCV 85.3, MCH 30.1, MCHC 35.3, RDW 12.1, Plt Count 221, MPV 10.5 H, Neut % (Auto) 71.8, Lymph % (Auto) 18.8, [place] % (Auto) 7.5, Eos % (Auto) 1.3, Baso % (Auto) 0.2, Neut # (Auto) 8.0 H, Lymph # (Auto) 2.1, [place] # (Auto) 0.8, Eos # (Auto) 0.2, Baso # (Auto) 0.0, D-Dimer 0.67 H, Sodium 140, Potassium 4.3, Chloride 104, Carbon Dioxide 26, Anion Gap 14.3, BUN 17, Creatinine 0.80, Estimated Creat Clear 128, Estimated GFR 81, Est GFR ( Amer) 98, Glucose 101 H, Calcium 9.3, Total Bilirubin 0.6, AST 33, ALT 29, Alkaline Phosphatase 88, Troponin I < 0.01, Total Protein 7.4, Albumin 4.0, Globulin 3.4 H, Albumin/Globulin Ratio 1.2, TSH 0.60, Serum HCG, Qual Negative 10/25/24 18:01: Urine Color Yellow, Urine Appearance Clear, Urine pH 7.0, Ur Specific [place] 1.015, Urine Protein Negative, Urine Glucose (UA) Negative, Urine Ketones Negative, Urine Blood Trace-i, Urine Nitrate Negative, Urine Bilirubin Negative, Urine Urobilinogen 0.2, Ur Leukocyte Esterase 3+ A, Urine WBC 5-10, Ur Squamous Epith Cells 5-10, Urine Bacteria 3+ 10/25/24 16:43 10/25/24 16:43 Orders (Tests/Meds): ED MEDICATIONS Discontinued Medications Generic Name Dose Route Start Last Admin Trade Name Freq PRN Reason Stop Dose Admin Acetaminophen 1,000 mg 10/25/24 16:22 10/25/24 16:46 Acetaminophen 500mg Tab PO 10/25/24 16:23 1,000 mg ONCE ONE Administration Hydroxyzine Pamoate 25 mg 10/25/24 16:22 10/25/24 16:46 Hydroxyzine Pamoate 25mg Capsule PO 10/25/24 16:23 25 mg ONCE ONE Administration Iopamidol 70 ml 10/25/24 18:10 10/25/24 18:11 Iopamidol-370 (76%);100ml Bottle IV 10/25/24 18:11 70 ml ONCE ONE Administration Sodium Chloride 50 ml 10/25/24 18:10 10/25/24 18:11 0.9 % Sodium Chloride 50 Ml Vial IV 10/25/24 18:11 50 ml ONCE ONE Administration Sodium Chloride 10 ml 10/25/24 18:10 10/25/24 18:11 Sodium Chloride 0.9% 10ml Syr (Rad Only) IV 10/25/24 18:11 10 ml ONCE ONE Administration ORDERS Category Date Time Status CTA Chest [CT angio chest PE protocol] Stat Cat Scan 10/25/24 17:29 Completed Chest XR 2 view (NOT portable) [XR chest 2V] Stat Exams 10/25/24 16:22 Completed CBC w/Auto Diff [Complete Blood Count Auto Diff] Stat Lab 10/25/24 16:43 Completed CMP [Comprehensive Metabolic Panel] Stat Lab 10/25/24 16:43 Completed D-Dimer Stat Lab 10/25/24 16:43 Completed HCG Qualitative, Serum Stat Lab 10/25/24 16:43 Completed Rapid PCR Covid and Flu A/B Stat Lab 10/25/24 16:08 Completed TSH [Thyroid Stimulating Hormone] Stat Lab 10/25/24 16:43 Completed Troponin I Stat Lab 10/25/24 16:43 Completed UA [Urinalysis and Microscopic] Stat Lab 10/25/24 18:01 Completed Urine Culture Stat Micro 10/25/24 18:01 Received ECG Data Tracing #1: I reviewed this ECG and interpreted as documented below: Normal sinus rhythm at a rate of 96, QTc 384, normal axis, no concerning ST segment changes for ischemia Medical Decision Narrative: In summary, this 34-year-old female with a history of anxiety, hypothyroidism, PCOS presents to the emergency department today with multiple complaints including anxiousness, palpitations, hot flashes, malar rash, chest tightness, joint pain. On initial evaluation patient is anxious appearing however no acute distress, tachycardic to the 110s, normotensive, nontoxic-appearing, afebrile, satting 100% on RA. Differential diagnosis includes but is not limited to ACS, arrhythmia, electrolyte abnormality, hyperthyroidism, pulmonary embolism, lupus, vasculitis, anxiety.. Based on these concerns, I ordered a viral swab, CBC, CMP, TSH, troponin, EKG, test, chest x-ray. Considered CT PE, however patient low risk for pulmonary embolism via Wells criteria however tachycardic. Ordered D-dimer to risk stratify. ECG personally interpreted as noted above. Patient received Tylenol and hydroxyzine for treatment. Labs personally reviewed demonstrate leukocytosis with white blood cell count of 11.1, positive D-dimer at 0.67. Did not have an alternative etiology for her chest pain at this time and should she have lupus, she would be eventually hypercoagulable. Ordered CT PE at this time. Troponin is undetectable. test negative. UA was a contaminated specimen revealing 5-10 white blood cells and 3+ bacteria. Indeterminant for UTI. XR personally interpreted demonstrates no acute cardiopulmonary pathology. CT PE independently interpreted by me, revealing no acute pulmonary embolism. On reevaluation, the patient reported symptomatic improvement. She is appropriate for discharge with PCP follow-up as well as psychology follow-up. Remained stable throughout her stay in the emergency department. Critical Care Critical Care Time Critical Care Time: No
[2024-10-25 16:05] VITALS: BP 124/81; PULSE 119; RESP 18; TEMP 36.6; O2SAT 100; BMI 30.6
[2024-10-25 16:13] VITALS: BP 120/93; PULSE 122; O2SAT 97
[2024-10-25 16:14] LABS: Coronavirus 19, PCR Not Detected (NotDetected); Influenza A, PCR Not Detected (NotDetected); Influenza B, PCR Not Detected (NotDetected)
[2024-10-25 16:15] VITALS: BP 142/86; PULSE 116; O2SAT 97
--- NOTE | 2024-10-25 16:22 | XR_ITS ---
PROCEDURE INFORMATION: Exam: XR Chest Exam date and time: 10/25/2024 4:22 PM Age: 34 years old Clinical indication: Sternal or substernal pain; Additional info: Chest discomfort TECHNIQUE: Imaging protocol: Radiologic exam of the chest. Views: 2 views. COMPARISON: 1. CR XR CHEST 2V 07/06/2021 7:43 PM 2. CR CXR CHEST(2 VIEWS-NOT PORTABLE) 08/02/2014 6:56 PM FINDINGS: Lungs: Unremarkable. No consolidation. Calcified granulomas left lung base adjacent to the apex of the heart overlying the 6th anterior rib and just above the hemidiaphragm redemonstrated. Pleural spaces: Unremarkable. No pleural effusion. No pneumothorax. Heart/Mediastinum: Unremarkable. No cardiomegaly. Bones/joints: Unremarkable. IMPRESSION: Stable chest x-ray with no acute disease.
[2024-10-25 16:30] VITALS: BP 118/86; PULSE 101; O2SAT 96
[2024-10-25] MEDS: ACETAMINOPHEN 500MG TAB 1000 MG PO (16:46)
[2024-10-25] MEDS: hydrOXYzine pamoate 25MG CAPSULE 25 MG PO (16:46)
[2024-10-25 16:52] LABS: Basophils % 0.2 % (0.1-2.0); Eosinophils # 0.2 Kmm3 (0.0-0.4); Eosinophils % 1.3 % (0.1-12.0); Hematocrit 36.5 % (37.0-47.0); Hemoglobin 12.9 g/dL (12.2-16.2); Lymphocytes # 2.1 K/mm3 (0.7-4.5); Lymphocytes % 18.8 % (10-50); Mean Corpuscular HGB Conc 35.3 g/dL (31.8-35.4); Mean Corpuscular Hemoglobin 30.1 pg (27.0-31.2); Mean Corpuscular Volume 85.3 fl (81-99); Mean Platelet Volume 10.5 fl (7.4-10.4); Monocytes # 0.8 K/mm3 (0.1-1.0); Monocytes % 7.5 % (1.7-9.3); Neutrophils % 71.8 % (37.0-80.0); Nucleated Red Blood Cells # 0 10^3/uL; Nucleated Red Blood Cells % 0 %; Platelet Count 221 K/mm3 (142-424); Red Blood Count 4.28 M/mm3 (4.20-5.40); Red Cell Distribution Width 12.1 % (11.5-17.5); Red Cell Distribution Width-SD 36.9 fL; White Blood Count 11.1 K/mm3 (4.8-10.8)
[2024-10-25 17:04] LABS: Alanine Aminotransferase 29 U/L (12-78); Albumin/Globulin Ratio 1.2 (1.1-1.8); Alkaline Phosphatase 88 U/L (38-126); Anion Gap 14.3 mEq/L (5-15); Aspartate Amino Transferase 33 U/L (14-36); Bilirubin,Total 0.6 mg/dl (0.2-1.3); Blood Urea Nitrogen 17 mg/dl (7-17); Calcium 9.3 mg/dl (8.4-10.2); Carbon Dioxide 26 mmol/L (22.0-30.0); Chloride 104 mmol/L (98-107); Creatinine Clearance Estimated 128 mL/min (50-200); Estimated Glomerular Filt Rate 81 ml/min (>60); GFR (African American) 98 ML/MIN (>60); Globulin 3.4 g/dL (1.3-3.2); Glucose 101 mg/dl (74-100); Potassium 4.3 mmoL/L (3.5-5.1); Sodium 140 mmol/L (136-145); Total Protein,Serum 7.4 g/dl (6.3-8.2)
[2024-10-25 17:08] LABS: HCG Qualitative, Serum Negative (Negative)
--- NOTE | 2024-10-25 17:08 | ECG_ITS ---
APPROVED REPORT Exam: Resting ECG HR:96 bpm ECG Measurements Heart Rate 96 AXES OK 170 P 31 QRSd 83 QRS 37 QT 331 T 39 QTc 384 Conclusion SINUS RHYTHM LOW QRS VOLTAGE IN PRECORDIAL LEADS [QRS DEFLECTION < 1.0 mV IN CHEST LEADS] BORDERLINE ECG UNCONFIRMED REPORT Electronically signed by : NORMAN STAFFORD, 10/27/2024 06:09:01
[2024-10-25 17:09] LABS: D-Dimer 0.67 ug/mL (0.0-0.5)
[2024-10-25 17:21] LABS: Troponin I < 0.01 ng/ml (0.00-0.034)
--- NOTE | 2024-10-25 17:29 | CT_ITS ---
PROCEDURE INFORMATION: Exam: CTA Chest With Contrast Exam date and time: 10/25/2024 6:04 PM Age: 34 years old Clinical indication: Pain; Chest pressure; Additional info: Chest pain, + d-dimer TECHNIQUE: Imaging protocol: Computed tomographic angiography of the chest with contrast. Exam focused on the arteries. 3D rendering (Not supervised by radiologist): MIP and/or 3D reconstructed images were created by the technologist. Radiation optimization: All CT scans at this facility use at least one of these dose optimization techniques: automated exposure control; mA and/or kV adjustment per patient size (includes targeted exams where dose is matched to clinical indication); or iterative reconstruction. Contrast material: ISOVUE 370; Contrast volume: 70 ml; Contrast route: INTRAVENOUS (IV); COMPARISON: 1. CR XR CHEST 2V 10/25/2024 4:[address] ABDOMEN PELVIS W CON 08/12/2022 1:51 PM FINDINGS: Pulmonary arteries: Normal. No pulmonary emboli. Aorta: Unremarkable. No aortic aneurysm. No aortic dissection. Lungs: Unremarkable. No consolidation. No masses. Pleural spaces: Unremarkable. No pneumothorax. No pleural effusion. Heart: Unremarkable. No cardiomegaly. No pericardial effusion. Lymph nodes: Stable mildly enlarged gastrohepatic node measuring 10 mm on image 98 of series 5 and left paraesophageal node measuring 8 mm on axial image [address] abdomen of 08/12/2022. Bones/joints: Unremarkable. No acute fracture. Soft tissues: Unremarkable. IMPRESSION: No evident PE. No other acute findings.
[2024-10-25 18:06] LABS: Microscopic, Urine URINE MICROSCOPIC (MICROSCOPIC)
[2024-10-25] MEDS: SODIUM CHLORIDE 0.9% 10ML SYR (RAD ONLY) 10 ML IV (18:11)
[2024-10-25] MEDS: IOPAMIDOL-370 (76%);100ML BOTTLE 70 ML IV (18:11)
[2024-10-25] MEDS: 0.9 % SODIUM CHLORIDE 50 ML VIAL IV (18:11)
[2024-10-25 18:25] LABS: Appearance,Urine CLEAR (Clear); Bilirubin,Urine Negative (Negative); Blood, Urine TRACE-I (Negative); Color,Urine YELLOW (Yellow); Glucose,Urine (UA) Negative (Negative); Ketones,Urine Negative (Negative); Leukocyte Esterase,Urine 3+ (Negative); Nitrate,Urine Negative (Negative); Protein,Urine Negative (Negative); Specific Gravity, Urine 1.015 (1.005-1.030); Urobilinogen,Urine 0.2 EU/dl (0.2)
[2024-10-25 18:34] VITALS: BP 115/81; PULSE 88; O2SAT 98
[2024-10-25 18:53] LABS: Bacteria,Urine 3+ /lpf
[2024-10-25 19:18] VITALS: BP 109/76; PULSE 81; RESP 18; TEMP 36.7; O2SAT 97
== END 2024-10-25 19:20 | disposition home or self-care (01) ==
PROVIDERS: Emergency Provider Student in an Organized Health Care Education/Training Program; PCP Internal Medicine
DX: R07.89 Other chest pain (principal); M25.561 Pain in right knee; R21 Rash and other nonspecific skin eruption; F41.9 Anxiety disorder, unspecified
CPT/HCPCS: 71046; 71275; 80053; 81001; 84443; 84484; 84703; 85025; 85378; 87086; 87636; 93005; 99285; Q9967

== ENCOUNTER 2024-11-15 13:03 | Outpatient (CLI) | payer BC, SELFPAY ==
[2024-11-15 17:11] LABS: Basophils % 0.1 % (0.1-2.0); Eosinophils # 0.3 Kmm3 (0.0-0.4); Eosinophils % 3.7 % (0.1-12.0); Hematocrit 35.4 % (37.0-47.0); Hemoglobin 11.9 g/dL (12.2-16.2); Immature Granulocytes # 0.02 10^3uL; Immature Granulocytes % 0.3 %; Lymphocytes # 2.1 K/mm3 (0.7-4.5); Lymphocytes % 30.3 % (10-50); Mean Corpuscular HGB Conc 33.6 g/dL (31.8-35.4); Mean Corpuscular Hemoglobin 29.2 pg (27.0-31.2); Mean Corpuscular Volume 86.8 fl (81-99); Mean Platelet Volume 10.8 fl (7.4-10.4); Monocytes # 0.5 K/mm3 (0.1-1.0); Neutrophils % 58.6 % (37.0-80.0); Nucleated Red Blood Cells # 0 10^3/uL; Nucleated Red Blood Cells % 0 %; Platelet Count 231 K/mm3 (142-424); Red Blood Count 4.08 M/mm3 (4.20-5.40); Red Cell Distribution Width 12.7 % (11.5-17.5); Red Cell Distribution Width-SD 39.8 fL; White Blood Count 6.8 K/mm3 (4.8-10.8)
[2024-11-15 18:18] LABS: Erythrocyte Sedimentation Rate 22 mm/hr (0-20)
[2024-11-15 20:08] LABS: Albumin Level 3.8 g/dl (3.5-5.0); Chloride 109 mmol/L (98-107); Potassium 4.8 mmoL/L (3.5-5.1); Sodium 138 mmol/L (136-145)
[2024-11-15 20:10] LABS: Alanine Aminotransferase 21 U/L (12-78); Aspartate Amino Transferase 24 U/L (14-36); Blood Urea Nitrogen 15 mg/dl (7-17); Estimated Glomerular Filt Rate 95 ml/min (>60); GFR (African American) 115 ML/MIN (>60)
[2024-11-15 20:11] LABS: Albumin/Globulin Ratio 1.4 (1.1-1.8); Alkaline Phosphatase 64 U/L (38-126); Anion Gap 6.8 mEq/L (5-15); Bilirubin,Total 0.2 mg/dl (0.2-1.3); Calcium 9.1 mg/dl (8.4-10.2); Carbon Dioxide 27 mmol/L (22.0-30.0); Creatine Kinase 100 U/L (30-135); Globulin 2.8 g/dL (1.3-3.2); Glucose 82 mg/dl (74-100); Total Protein,Serum 6.6 g/dl (6.3-8.2)
== END 2024-11-15 23:59 | disposition home or self-care (01) ==
LOC: LAB.DROPOF 11-17 13:03
PROVIDERS: PCP Internal Medicine; Visit Provider Internal Medicine
DX: R21 Rash and other nonspecific skin eruption (principal); M79.18 Myalgia, other site; F41.1 Generalized anxiety disorder
CPT/HCPCS: 80053; 82550; 85025; 85651

== ENCOUNTER 2024-11-24 16:11 | Outpatient (CLI) | payer BC, SELFPAY ==
[2024-11-24 16:15] LABS: Anti-Centromere B Antibodies ND; Anti-DNA (DS) Ab Qn ND; Anti-Jo-1 ND; Antichromatin Antibodies ND; Antiscleroderma-70 Antibodies ND; RNP Antibodies ND; Sjogren's Anti-SS-A ND; Sjogren's Anti-SS-B ND
[2024-11-28 08:25] LABS: Antinuclear Antibodies (ANA) Negative (Negative)
== END 2024-11-24 23:59 | disposition home or self-care (01) ==
LOC: LAB 16:12
PROVIDERS: PCP Internal Medicine; Visit Provider Internal Medicine
DX: R21 Rash and other nonspecific skin eruption (principal); M79.18 Myalgia, other site
CPT/HCPCS: 86038

== ENCOUNTER 2025-04-30 07:55 | Outpatient (CLI) | payer BC, SELFPAY ==
--- OUTSIDE RECORDS SUMMARY | 2025-04-30 07:57 | XMS_ITS | Clinical Summary ---
Author Organization Healthcare Address [address] [place] [address] Care Team Providers Care Packing Checker Name Role Phone Carlos Joseph MD Primary Care Provider + [phone] Family History Medical History Relation Name Comments Conversions - Other Mother acute pa ncreatitis Conversions - Other Sister acute pa ncreatitis Relation Name Status Comments Mother Sister Social History Tobacco Use Types Packs/Day Years Used Date Smoking Tobacco: Never Alcohol Use Standard Drinks/Week Comments No 0 (1 standard drink = 0.6 oz pur e alcohol) Comments Unknown Sex and Gender Information Value Date Recorded Sex Assigned at Not on file Legal Sex Female 6:58 PM EDT Gender Identity Not on file Sexual Orientation Not on file Last Filed Vital Signs Vital Sign Reading Time Taken Comments Blood Pressure - - Pulse - - Temperature - - Respiratory Rate - - Oxygen Saturation - - Inhaled Oxygen Concentration - - Weight 83.6 kg (184 lb 4.9 oz) 10/29/2014 9:21 A M EDT Height 162.6 cm (5' 4 ) 10/29/2014 9:21 AM EDT Body Mass Index 31.64 10/29/2014 9:21 AM EDT Plan of Treatment Not on file Care Teams Packing Checker Relationship Specialty Start Date End Date Carlos Joseph MD [address] [place] [address] PCP - General 11/15/20
--- OUTSIDE RECORDS SUMMARY | 2025-04-30 07:57 | XMS_ITS ---
Author Organization Unknown ENCOUNTERS Encounter Performer Location Date Diagnosis Diagnosis Status Emergency Alvarado Carmona [facility] [address] [place] [address] [id number] [place] Pre Admit Alvaradosylwia Carmona [facility] [address] [place] [address] [id number] Pre Admit [facility] [address] [place] [address] [id number] Emergency [facility] [address] [place] [address] [id number] [place] Emergency [facility] [address] [place] [address] [id number] [place] Pre Admit [facility] [address] [place] [address] [id number] Emergency [facility] [address] [place] [address] [id number] [place] Pre Admit Naya Norton [facility] [address] [place] [address] [id number] Emergency Ravindra [facility] [address] [place] [address] [id number] [place] [facility] [address] [place] [address] [id number] S[place] Emergency Ravindra [facility] [address] [place] [address] [id number] [place] Emergency Aubrey Varela [facility] [address] [place] [address] [id number] [place] Emergency [facility] [address] [place] [address] [id number] [place] Emergency Ryan Rowan [facility] [address] [place] [address] [id number] [place] Emergency [facility] [address] [place] [address] [id number] [place] Emergency Nael Causey [facility] [address] [place] [address] [id number] S[place] Emergency [place] Nayak [facility] [address] [place] [address] [id number] [place] Emergency [place] [facility] [address] [place] [address] [id number] [place] Emergency [place] Nayak [facility] [address] [place] [address] [id number] [place] Emergency Carlos Joseph [facility] [address] [place] [address] [id number] [facility] Emergency Naya Norton [facility] [address] [place] [address] [id number] S[place] Emergency Carina Benson [facility] [address] [place] [address] [id number] [place] Emergency Vlad Peres [facility] [address] [place] [address] [id number] [place] Emergency [place] [facility] [address] [place] [address] [id number] [place] *Note: Encounters from your own facility or health system may be excluded. Allergies, Adverse Reactions, Alerts Allergen Type Severity Identification Date amoxicillin drug allergy 0 [id number] ibuprofen drug allergy 0 [id number] hydromorphone drug allergy 0 [id number] aspirin drug allergy 0 [id number] Penicillins drug allergy 0 [id number] tetanus and diphtheria toxoids drug allergy 0 [id number] Tetanus Vaccines and Toxoid drug allergy 0 20180629 Medications Name Date Quantity Days Supplied GPI Number
--- OUTSIDE RECORDS SUMMARY | 2025-04-30 07:57 | XMS_ITS | Clinical Summary ---
[facility] Address [address] [place] [address] Care Team Providers Care Socket Puller Name Role Phone Provider, No Known Primary Care Provider Unavail able Social History Tobacco Use Types Packs/Day Years Used Date Smoking Tobacco: Never Assessed Abuse Screen Answer Date Recorded Unsafe at Home or Work/School Not on file Feels Threatened by Someone? Not on file 06/2023 Does Anyone Keep You from Co ntacting Others or Doint Things Outside the Home? Not on file 04/15/2023 Physical Sign of Abuse Present Not on file 1 Housing Stability Answer Date Recorded Current Living Arrangements Not on file 04/04 Potentially Unsafe Housing Conditions Not on satish e 04/15/2023 Family and Community Support Answer Layo e Recorded Help with Day-to-Day Activities Not on file 04/15/2023 Lonely or Isolated Not on file 04/15/2023 Employment Answer Date Recorded Do you want help finding or keeping work or a deisy b? Not on file 04/15/2023 Disabilities Answer Date Recorded Concentrating, Remembering, or Making Decisions Difficulty Not on file 04/15/2023 Doing Errands Independently Difficulty Not on fi le 04/15/2023 Education Answer Date Recorded Help with school or training? Not on file Preferred Language Not on file 04/15/2023 Comments Unknown Sex and Gender Information Value Date Recorded Sex Assigned at Not on file Legal Sex Female 1:20 PM EST Gender Identity Not on file Sexual Orientation Not on file Plan of Treatment Health Maintenance Due Date Last Done Comments ANNUAL PHYSICAL 1988 Annual Gynecologic Pelvic an d Breast Exam 1988 HEPATITIS C SCREENING 1988 TDAP/TD VACCINES (1 - Tdap) 01/29/2007 INFLUENZA VACCINE 02/02/2025 Pneumococcal Vaccine 0-49 Aged Out No longer eligible based on patient's age to complete this topic Insurance Care Teams Socket Puller Relationship Specialty Start Date End Date Provider, No Known [facility] [place] [address] PCP - General 06/09/18
--- NOTE | 2025-04-30 08:00 | MM_ITS ---
PROCEDURE INFORMATION: Exam: MG Bilateral Screening 3D Mammography Exam date and time: 04/30/2025 8:04 AM Age: 35 years old Clinical indication: Screening. Her maternal cousin and maternal aunt had breast cancer. TECHNIQUE: Imaging protocol: Bilateral Screening tomosynthesis and 2D mammography including computer-aided detection (CAD) when performed. COMPARISON: 1. MG MM DIG SCREENING MAMM BI W/CAD 04/09/2022 7:55 AM 2. MG MM DIG SCREENING MAMM BI W/CAD 03/19/2021 8:02 AM FINDINGS: MAMMOGRAPHY: Breast composition: The breasts are almost entirely fatty. Mass: None. Architectural distortion: None. Calcifications: No suspicious calcifications. Asymmetric density: None. Skin thickening: None. Axillary adenopathy: None. IMPRESSION: No mammographic evidence of malignancy. Annual screening is recommended unless otherwise clinically indicated. ASSESSMENT: BI-RADS Category 1: Negative.
== END 2025-04-30 23:59 | disposition home or self-care (01) ==
LOC: RAD 07:56
PROVIDERS: PCP Internal Medicine; Visit Provider Internal Medicine
DX: Z12.31 Encounter for screening mammogram for malignant neoplasm of breast (principal); R92.313 Mammographic fatty tissue density, bilateral breasts; Z80.3 Family history of malignant neoplasm of breast
CPT/HCPCS: 77063; 77067

== ENCOUNTER 2025-05-07 08:21 | Emergency (ER) | payer BC, SELFPAY ==
[2025-05-07 08:22] VITALS: BP 115/84; PULSE 87; RESP 16; TEMP 36.4; O2SAT 96; BMI 30.7
--- OUTSIDE RECORDS SUMMARY | 2025-05-07 08:51 | XMS_ITS | Clinical Summary ---
[facility] [address] [place] [address] Care Team Providers Care Machine Plaster Mixer Name Role Phone Provider, No Known Primary [...] to complete this topic Insurance Care Teams Machine Plaster Mixer Relationship Specialty Start Date End Date Provider, No Known [facility] [place] [address] PCP - General 06/09/18
--- OUTSIDE RECORDS SUMMARY | 2025-05-07 08:51 | XMS_ITS | Clinical Summary ---
Author Organization Healthcare Address [address] [place] [address] Care Team Providers Care Data Processing Operator Name Role Phone Carlos Joseph MD Primary Care Provider + [phone] Family History Medical History Relation Name Comments [...] of Treatment Not on file Care Teams Data Processing Operator Relationship Specialty Start Date End Date Carlos Joseph MD [address] [place] [address] PCP - General 11/15/20
--- NOTE | 2025-05-07 08:54 | HMH.EDGENADL ---
Discharge Plan Disposition Patient Disposition: Home, Self-Care Condition: Good Prescriptions Prescriptions: No Action No Known Home Medications Referrals Follow up/Referrals: Nicolas Carpenter MD [Primary Care Provider, Medical] - See instructions Angel Puentes DO [Staff Physician, Orthopedics] - See instructions Referral Note: ankle sprain Activity Restrictions/Add. Instructions Additional Instructions/Restrictions: You were seen in the emergency department for an ankle sprain. Please follow-up with orthopedics outpatient if symptoms do not improve. Please use crutches until you can bear weight without pain. If symptoms worsen, or new symptoms develop including significantly increased swelling, increased redness, please have ankle reevaluated. Clinical Impressions Clinical Impression: Ankle sprain Stand Alone Forms Stand Alone Forms: Work/School Release Instructions Patient Instructions: Ankle Sprain Print Language Print Language: Citizen Of [place] Discharge ED Provider: Man Sparks General Adult HPI General Chief complaint: Extremity Injury, Lower Stated complaint: [id number] hours-Fall, Pain and swelling Left ankle Time Seen by Provider: 05/07/25 08:54 History of Present Illness HPI narrative: This patient is a 35-year-old female with past medical history of multiple ankle sprains who presents to the emergency department after tripping and twisting her ankle underneath her. She has been able to bear weight on the ankle. She has excellent pulses on the affected extremity, there is some swelling over the anterior talofibular ligament. She has minimal pain with compression of the calcaneus, but does express some pain with palpation of the lateral malleolus. Related Data Home Medications ?Medication ?Instructions ?Recorded ?Confirmed No Known Home Medications 05/07/25 05/07/25 Allergies Allergy/AdvReac Type Severity Reaction Status Date / Time hydromorphone (From DILAUDID) Allergy Unknown S-SWELLS-OR Verified 03/15/25 09:10 AL/THROAT ibuprofen (IBUPROFEN) Allergy Unknown NA-NAUSEA/V Verified 03/15/25 09:10 OMITING Penicillins (PENICILLINS) Allergy Unknown Hives Verified 05/07/25 09:11 tetanus and diphtheria Allergy Unknown LOCAL Verified 03/15/25 09:10 toxoids REACTION Tetanus Vaccines and Toxoid Allergy Unknown LOCAL Verified 03/15/25 09:10 REACTION amoxicillin (AMOXICILLIN) AdvReac Unknown Other Verified 05/07/25 09:11 aspirin (ASPIRIN) AdvReac Unknown Vomiting Verified 05/07/25 09:11 [facility] Disclaimer: The information contained in this section may have been updated after the patient was seen, as this information can be updated by other users. Medical History PCOS (polycystic ovarian syndrome) Cellulitis Surgical History History of esophagogastroduodenoscopy (EGD) Hx of cholecystectomy Hx of wisdom tooth extraction Family History Other Cancer Social History Smoking Status: Never smoker second hand exposure: No alcohol intake: never substance use type: denies use current occupational status: other Travel in the last 8 weeks?: None household members: family housing: house Other Medical History Have you received the Flu Vaccine for this season: No Have you received the Pneumonia Vaccine: No ROS Obtained: Yes All systems reviewed & no additional complaints except as documented Physical Exam General General appearance: alert and in no apparent distress Head Head exam: atraumatic and normocephalic Eye Eye exam: Present normal appearance, PERRL and EOMI ENT ENT exam: Present normal exam and normal external ear exam Neck Neck exam: Present normal inspection, full ROM and trachea midline Chest Chest inspection: Present normal inspection and symmetric chest wall rise; Absent tenderness Respiratory Respiratory exam: Absent respiratory distress Cardiovascular Cardiovascular exam: Present regular rate, normal rhythm and other (appears warm and well perfused) Abdominal Exam Abdominal exam: Absent distention or tenderness Extremities Exam Extremities exam: Present normal inspection and full ROM Neurological Exam Neurological exam: Present alert and oriented X3 Psychiatric Psychiatric exam: Present normal affect Skin Skin exam: Present warm and dry Medical Decision Making Medical Records Medical records reviewed: Yes I reviewed the patient's medical records. Screening: Per USPSTF and CDC recommendations, given the prevalence of disease in our region, it is our hospital?s policy to screen for HIV and viral Hepatitis for all patients aged 18 and over and those with ongoing risk factors. Darius Inquiry Pt receiving controlled substance: No Darius was queried for this patient: No Vital Signs: 05/07/25 08:22 05/07/25 11:16 Temperature 97.6 F 98.0 F Temperature Source Oral Oral Pulse Rate 77 Pulse Rate [Left] 87 Respiratory Rate 16 18 Blood Pressure 137/99 H Blood Pressure [Right Arm] 115/84 Blood Pressure Mean [Right Arm] 94 Blood Pressure Source Automatic Cuff Blood Pressure Source [Right Arm] Automatic Cuff Blood Pressure Position Sitting Blood Pressure Position [Right Arm] Sitting 02 Sat by Pulse Oximetry 96 Oxygen Delivery Method Room Air Room Air Lab Data Lab results reviewed: Yes I reviewed the patient's lab results. Orders (Tests/Meds): ED MEDICATIONS Discontinued Medications Generic Name Dose Route Start Last Admin Trade Name Jeison PRN Reason Stop Dose Admin Acetaminophen 1,000 mg 05/07/25 08:59 05/07/25 09:14 Acetaminophen 500mg Tab PO 05/07/25 09:00 1,000 mg ONCE ONE Administration Ketorolac Tromethamine 15 mg 05/07/25 08:59 05/07/25 10:04 Ketorolac 15mg/Ml Vial IM 05/07/25 09:00 Not Given ONCE ONE Oxycodone HCl 5 mg 05/07/25 09:00 05/07/25 09:14 Oxycodone 5mg Immediate Release Tablet PO 05/07/25 09:01 5 mg ONCE ONE Administration ORDERS Category Date Time Status Ankle XR - Left minimum 3 Views [XR ankle LT min 3V] Exams 05/07/25 08:59 Completed Stat Fibula/tibia XR left 2 views [XR tibia fibula LT 2V] Exams 05/07/25 08:59 Completed Stat Foot XR left 2 views [XR foot LT 2V] Stat Exams 05/07/25 08:59 Completed Medical Decision Narrative: MDM In summary, this 35-year-old female presents to the emergency department today with ankle pain and swelling. Initial evaluation the patient uncomfortable, hemodynamically stable. Differential diagnosis includes but is not limited to fracture, dislocation, ligamentous tear. Based on these concerns, I ordered imaging workup of the ankle. Patient received Tylenol, oxycodone for treatment. X-rays personally interpreted by me demonstrate no acute fracture or dislocation, some soft tissue. On reassessment the patient was significantly more comfortable. She is still having some difficulty bearing weight on the foot and so we wrapped the ankle to reduce the swelling and provided her with crutches. She was able to ambulate safely with crutches and so we felt comfortable discharge home with plans for follow-up in orthopedic clinic Critical Care Critical Care Time Critical Care Time: No
--- NOTE | 2025-05-07 08:59 | XR_ITS ---
FINAL REPORT CLINICAL HISTORY: fall, lateral sided ankle pain FINDINGS: LEFT FOOT 2 views of the left foot were obtained. There is no acute fracture or dislocation. Visualized joint spaces are normally aligned. Soft tissues are unremarkable. IMPRESSION: No acute bony abnormality. Reviewed, Interpreted and Dictated by Makeda Day MD Transcribed by Clarita Almazan Authenticated and [facility]
--- NOTE | 2025-05-07 08:59 | XR_ITS ---
FINAL REPORT CLINICAL HISTORY: fall, lateral sided ankle pain FINDINGS: AP and lateral views of the left tibia and fibula were obtained. There is no prior exam for comparison. There is no acute fracture of the left tibia or fibula. The knee and ankle appear intact. The soft tissues are normal. IMPRESSION: No acute osseous abnormality of the left tibia or fibula. Reviewed, Interpreted and Dictated by Makeda Day MD Transcribed by Clarita Almazan Authenticated and [facility]
--- NOTE | 2025-05-07 08:59 | XR_ITS ---
FINAL REPORT CLINICAL HISTORY: fall, lateral sided pain, sprains ankle all the time FINDINGS: LEFT ANKLE Three views demonstrate no acute fracture or dislocation. The visualized joint spaces are normally aligned. There is lateral soft tissue edema. Mortise is intact. IMPRESSION: No acute bony abnormality. Reviewed, Interpreted and Dictated by Makeda Day MD Transcribed by Clarita Almazan Authenticated and [facility]
[2025-05-07] MEDS: OXYCODONE 5MG IMMEDIATE RELEASE TABLET 5 MG PO (09:14)
[2025-05-07] MEDS: ACETAMINOPHEN 500MG TAB 1000 MG PO (09:14)
[2025-05-07 11:16] VITALS: BP 137/99; PULSE 77; RESP 18; TEMP 36.7; O2SAT 99
== END 2025-05-07 11:17 | disposition home or self-care (01) ==
PROVIDERS: Emergency Provider Student in an Organized Health Care Education/Training Program; PCP Internal Medicine
DX: S93.402A Sprain of unspecified ligament of left ankle, initial encounter (principal); R22.42 Localized swelling, mass and lump, left lower limb; X50.1XXA Overexertion from prolonged static or awkward postures, initial encounter
CPT/HCPCS: 73590; 73610; 73620; 99283; 99284

== ENCOUNTER 2025-06-19 08:35 | Outpatient (CLI) | payer BC, SELFPAY ==
--- OUTSIDE RECORDS SUMMARY | 2025-06-19 08:38 | XMS_ITS | Clinical Summary ---
Author Organization Healthcare Address [address] [place] [address] Care Team Providers Care Information Security Specialist Name Role Phone Carlos Joseph MD Primary Care Provider + [phone] Family History Medical History Relation Name Comments [...] of Treatment Not on file Care Teams Information Security Specialist Relationship Specialty Start Date End Date Carlos Joseph MD [address] [place] [address] PCP - General 11/15/20
--- OUTSIDE RECORDS SUMMARY | 2025-06-19 08:38 | XMS_ITS | Clinical Summary ---
[facility] Address [address] [place] [address] Care Team Providers Care Bi Manager Name Role Phone Provider, No Known Primary [...] to complete this topic Insurance Care Teams Bi Manager Relationship Specialty Start Date End Date Provider, No Known [facility] [place] [address] PCP - General 06/09/18
--- NOTE | 2025-06-19 09:00 | MR_ITS ---
FINAL REPORT CLINICAL HISTORY: left ankle instability. fell 1 month ago. rolled ankle. lateral and posterior ankle pain COMPARISON: None FINDINGS: Multiplanar and multisequence imaging of the left ankle was obtained without intravenous contrast. BONES/JOINT: Bone marrow signal intensity is normal. There is no edema, contusion or pathologic marrow replacement. LIGAMENTS: The ATFL is torn. The posterior talofibular ligament and calcaneofibular ligament are intact. The tibiofibular ligaments are intact. The medial ligaments are intact. TENDONS: The Achilles tendon is normal in size and signal intensity. The medial tendons are within normal limits. The peroneal tendons are intact. The extensor tendons are within normal limits. OTHER SOFT TISSUES: There is no joint effusion. Signal intensity within the sinus tarsi is preserved. The plantar fascia is normal in size and signal intensity. Remaining soft tissues are within normal limits. IMPRESSION: Tear of the ATFL. The calcaneofibular and the posterior talofibular ligaments are intact. Reviewed, Interpreted and Dictated by Makeda Day MD Transcribed by Stephanie Archuleta Authenticated and [facility]
== END 2025-06-19 23:59 | disposition home or self-care (01) ==
LOC: RAD 08:35
PROVIDERS: PCP Internal Medicine; Visit Provider Physician Assistant
DX: S93.492A Sprain of other ligament of left ankle, initial encounter (principal); W19.XXXA Unspecified fall, initial encounter
CPT/HCPCS: 73721